=== PATIENT | female | born 1965 | race Caucasian/White ===

== ENCOUNTER 2016-08-10 20:44 | Inpatient (IN) | payer MEDICARE, MEDICAID ==
[2016-08-10 21:38] LABS: Urine Bacteria 1+ (Absent); Urine Bilirubin Negative (Negative); Urine Glucose 3+(>=500 mg/dL) (Negative); Urine Nitrite Positive (Negative)
[2016-08-10 21:44] LABS: Hematocrit 38 % (35-47); Hemoglobin 12.7 g/dl (12.0-16.0); Mean Corpuscular HGB Conc 33 g/dl (31-36); Mean Corpuscular Hemoglobin 29 pg (27-31); Mean Corpuscular Volume 86 fL (80-97); Mean Platelet Volume 7 um3 (7.4-10.4); Red Blood Count 4.43 10^6/ul (4.0-5.4); Red Cell Distribution Width 16 % (10.5-15); White Blood Count 7.4 10^3/ul (3.5-10.8)
[2016-08-10 21:54] LABS: Benzodiazepine Urine Screen None Detected (None Detect)
[2016-08-10 21:59] LABS: ALT 8 U/L (7-52); AST 12 U/L (13-39); Albumin 3.6 g/dL (3.2-5.2); Alkaline Phosphatase 83 U/L (34-104); Anion Gap 5 mmol/L (2-11); BUN/Creatinine Ratio 18.8 (8-20); Blood Urea Nitrogen 13 mg/dL (6-24); CO2 Carbon Dioxide 31 mmol/L (22-32); Chloride 98 mmol/L (101-111); EGFR African American 114.9 (>60); EGFR Non-African American 89.3 (>60); Globulin 3.8 g/dL (2-4); Glucose 134 mg/dL (70-100); Potassium 4.1 mmol/L (3.5-5.0); Sodium 134 mmol/L (133-145); Total Protein 7.4 g/dL (6.4-8.9)
[2016-08-10 22:33] LABS: Acetaminophen < 15 mcg/mL; Alcohol < 10 mg/dL (<10); Salicylate < 2.50 mg/dL (<30)
[2016-08-10 22:42] LABS: TSH (Thyroid Stimulating Horm) 3.67 mcIU/mL (0.34-5.60)
--- NOTE | 2016-08-11 06:21 | ED ---
Jeison Scott Karl, scribed for Jesus Alberto Isaac on 08/10/16 at 2108 . Psychiatric Complaint - HPI Summary HPI Summary: 51 y/o female MONET presents with c/o SI and self harm. Pt stated "I am sad" and has been exhibiting SI by attempting to scratch and cut her genitals. Pt denied any CP, SOB, and abd pain. Hx: DM. - History Of Current Complaint Time Seen by Provider: 08/10/16 20:50 Hx Obtained From: Patient Onset/Duration: Gradual Onset - Allergies/Home Medications Allergies/Adverse Reactions: Allergies Allergy/AdvReac Type Severity Reaction Status Date / Time Carbamazepine [From Tegretol] Allergy Unknown Verified 08/10/16 21:44 Reaction Details Clozapine [From Clozaril] Allergy Unknown Verified 08/10/16 21:44 Reaction Details PMH/Surg Hx/FS Hx/Imm Hx Previously Healthy: No - Family History Known Family History: Positive: Cardiac Disease - father - [place] - Social History Alcohol Use: None Hx Tobacco Use: No Smoking Status (MU): Never Smoked Tobacco Review of Systems Constitutional: Negative Eyes: Negative ENT: Negative Cardiovascular: Negative Respiratory: Negative Gastrointestinal: Negative Genitourinary: Negative Musculoskeletal: Negative Skin: Negative Neurological: Negative Positive: Depressed - with SI All Other Systems Reviewed And Are Negative: Yes Physical Exam Triage Information Reviewed: Yes Vital Signs On Initial Exam: Initial Vitals Temp Pulse Resp BP Pulse Ox 99.3 F 88 16 133/74 97 08/10/16 21:07 08/10/16 21:07 08/10/16 21:07 08/10/16 21:07 08/10/16 21:07 Vital Signs Reviewed: Yes Appearance: Positive: Well-Appearing, No Pain Distress Skin: Positive: Warm, Skin Color Reflects Adequate Perfusion, Dry Head/Face: Positive: Normal Head/Face Inspection Eyes: Positive: EOMI, JARRELL ENT: Positive: Normal ENT inspection Neck: Positive: Supple, Nontender Respiratory/Lung Sounds: Positive: Clear to Auscultation, Breath Sounds Present Cardiovascular: Positive: RRR, Pulses are Symmetrical in both Upper and Lower Extremities Abdomen Description: Positive: Nontender, Soft Bowel Sounds: Positive: Present Musculoskeletal: Positive: Normal, Strength/ROM Intact Neurological: Positive: Normal, Sensory/Motor Intact, Alert, Oriented to Person Place, Time Psychiatric: Positive: Depressed - depressed affect w/ SI Diagnostics - Vital Signs Vital Signs Temp Pulse Resp BP Pulse Ox 08/10/16 21:07 99.3 F 88 16 133/74 97 - Laboratory Lab Results: Lab Results 08/10/16 08/10/16 08/10/16 Range/Units 21:19 21:19 21:35 WBC 7.4 (3.5-10.8) 10^3/ul RBC 4.43 (4.0-5.4) 10^6/ul Hgb 12.7 (12.0-16.0) g/dl Hct 38 (35-47) % MCV 86 (80-97) fL MCH 29 (27-31) pg MCHC 33 (31-36) g/dl RDW 16 H (10.5-15) % Plt Count 219 (150-450) 10^3/ul MPV 7 L (7.4-10.4) um3 Neut % (Auto) 44.4 (38-83) % Lymph % (Auto) 44.2 (25-47) % Stonewall % (Auto) 7.9 (1-9) % Eos % (Auto) 2.7 (0-6) % Baso % (Auto) 0.8 (0-2) % Absolute Neuts (auto) 3.3 (1.5-7.7) 10^3/ul Absolute Lymphs (auto) 3.3 (1.0-4.8) 10^3/ul Absolute Monos (auto) 0.6 (0-0.8) 10^3/ul Absolute Eos (auto) 0.2 (0-0.6) 10^3/ul Absolute Basos (auto) 0.1 (0-0.2) 10^3/ul Absolute Nucleated RBC 0 10^3/ul Nucleated RBC % 0.1 Sodium (133-145) mmol/L Potassium (3.5-5.0) mmol/L Chloride (101-111) mmol/L Carbon Dioxide (22-32) mmol/L Anion Gap (2-11) mmol/L BUN (6-24) mg/dL Creatinine (0.51-0.95) mg/dL Est GFR ( Amer) (>60) Est GFR (Non-Af Amer) (>60) BUN/Creatinine Ratio (8-20) Glucose (70-100) mg/dL Calcium (8.6-10.3) mg/dL Total Bilirubin (0.2-1.0) mg/dL AST (13-39) U/L ALT (7-52) U/L Alkaline Phosphatase (34-104) U/L Total Protein (6.4-8.9) g/dL Albumin (3.2-5.2) g/dL Globulin (2-4) g/dL Albumin/Globulin Ratio (1-3) TSH (0.34-5.60) mcIU/mL Urine Color Yellow Urine Appearance Clear Urine pH 7.0 (5-9) Ur Specific Hye 1.029 (1.010-1.030) Urine Protein Negative (Negative) Urine Ketones Trace H (Negative) Urine Blood Negative (Negative) Urine Nitrate Positive H (Negative) Urine Bilirubin Negative (Negative) Urine Urobilinogen Negative (Negative) Ur Leukocyte Esterase Trace H (Negative) Urine WBC (Auto) Trace(0-5/hpf) (Absent) Urine RBC (Auto) 1+(3-5/hpf) H (Absent) Ur Squamous Epith Cells Present H (Absent) Urine Bacteria 1+ H (Absent) Urine Glucose 3+(>=500 mg/dl) H (Negative) Salicylates (<30) mg/dL Urine Opiates Screen None detected (None Detect) Acetaminophen mcg/mL Ur Barbiturates Screen None detected (None Detect) Ur Phencyclidine Scrn None detected (None Detect) Ur Amphetamines Screen None detected (None Detect) U Benzodiazepines Scrn None detected (None Detect) Urine Cocaine Screen None detected (None Detect) U Cannabinoids Screen None detected (None Detect) Serum Alcohol (<10) mg/dL 08/10/16 Range/Units 21:35 WBC (3.5-10.8) 10^3/ul RBC (4.0-5.4) 10^6/ul Hgb (12.0-16.0) g/dl Hct (35-47) % MCV (80-97) fL MCH (27-31) pg MCHC (31-36) g/dl RDW (10.5-15) % Plt Count (150-450) 10^3/ul MPV (7.4-10.4) um3 Neut % (Auto) (38-83) % Lymph % (Auto) (25-47) % Stonewall % (Auto) (1-9) % Eos % (Auto) (0-6) % Baso % (Auto) (0-2) % Absolute Neuts (auto) (1.5-7.7) 10^3/ul Absolute Lymphs (auto) (1.0-4.8) 10^3/ul Absolute Monos (auto) (0-0.8) 10^3/ul Absolute Eos (auto) (0-0.6) 10^3/ul Absolute Basos (auto) (0-0.2) 10^3/ul Absolute Nucleated RBC 10^3/ul Nucleated RBC % Sodium 134 (133-145) mmol/L Potassium 4.1 (3.5-5.0) mmol/L Chloride 98 L (101-111) mmol/L Carbon Dioxide 31 (22-32) mmol/L Anion Gap 5 (2-11) mmol/L BUN 13 (6-24) mg/dL Creatinine 0.69 (0.51-0.95) mg/dL Est GFR ( Amer) 114.9 (>60) Est GFR (Non-Af Amer) 89.3 (>60) BUN/Creatinine Ratio 18.8 (8-20) Glucose 134 H (70-100) mg/dL Calcium 9.0 (8.6-10.3) mg/dL Total Bilirubin 0.30 (0.2-1.0) mg/dL AST 12 L (13-39) U/L ALT 8 (7-52) U/L Alkaline Phosphatase 83 (34-104) U/L Total Protein 7.4 (6.4-8.9) g/dL Albumin 3.6 (3.2-5.2) g/dL Globulin 3.8 (2-4) g/dL Albumin/Globulin Ratio 0.9 L (1-3) TSH 3.67 (0.34-5.60) mcIU/mL Urine Color Urine Appearance Urine pH (5-9) Ur Specific Hye (1.010-1.030) Urine Protein (Negative) Urine Ketones (Negative) Urine Blood (Negative) Urine Nitrate (Negative) Urine Bilirubin (Negative) Urine Urobilinogen (Negative) Ur Leukocyte Esterase (Negative) Urine WBC (Auto) (Absent) Urine RBC (Auto) (Absent) Ur Squamous Epith Cells (Absent) Urine Bacteria (Absent) Urine Glucose (Negative) Salicylates < 2.50 (<30) mg/dL Urine Opiates Screen (None Detect) Acetaminophen < 15 mcg/mL Ur Barbiturates Screen (None Detect) Ur Phencyclidine Scrn (None Detect) Ur Amphetamines Screen (None Detect) U Benzodiazepines Scrn (None Detect) Urine Cocaine Screen (None Detect) U Cannabinoids Screen (None Detect) Serum Alcohol < 10 (<10) mg/dL Result Diagrams: 08/10/16 21:35 08/10/16 21:35 Lab Statement: Any lab studies that have been ordered have been reviewed, and results considered in the medical decision making process. Course/Dx - Course Course Of Treatment: pt cleared for mental health evaluation. - Differential Dx/Clinical Impression Provider Diagnosis: Depressed affect, Suicidal ideation Discharge - Discharge Plan Condition: Stable Disposition: OTHER Discharge Disposition Comment: for mental health evaluation. The documentation as recorded by the Jeison nicole Karl accurately reflects the service I personally performed and the decisions made by , Jesus Alberto Isaac.
[2016-08-11] MEDS ORDERED: Fluconazole 100 MG TAB* TAB PO ONE (06:46)
--- NOTE | 2016-08-11 06:51 | PN ---
Progress Note - Progress Note Note: Patient is complaining of vaginal itching and white discharge. States that sugars have not been in control and gets yeast infections when this occurs. She states that the diflucan normal clears it up. On exam she has white curdy like discharge presents with labial irritation present consistent with candidiasis. Will treat with diflucan.
[2016-08-11] MEDS ORDERED: Ciprofloxacin TAB* 500 MG PO ONE (14:29)
--- NOTE | 2016-08-11 14:34 | PN ---
Mylene Scott SooYoung, scribed for Michael Aguilar MD on 08/11/16 at 1415 . Progress Note - Progress Note Note: SIGN OUT FROM DR. TOMLIN. Pt is a 51 y/o F with SI and depression. Voluntary papers signed. Pt will be admitted to behavioral health unit. pt's urine was positive for >100,000 of EColi. she will be started on Cipro 500 mg BID x 7 days DX: DEPRESSION UTI The documentation as recorded by the southibMylene garcia SooYoung accurately reflects the service I personally performed and the decisions made by Jeff keller Drew, MD.
[2016-08-11] MEDS: QUEtiapine TAB* 100 MG PO SCH (21:00)
[2016-08-11] MEDS: Divalproex ER TAB(*) 500 MG PO SCH (21:00)
[2016-08-11] MEDS: glipiZIDE TAB* 5 MG PO SCH (21:01)
[2016-08-11] MEDS: metFORMIN* 1,000 MG TAB PO SCH (21:01)
[2016-08-11] MEDS: Prazosin CAP* 1 MG PO SCH (21:01)
[2016-08-11] MEDS: LORazepam TAB(*) 0.5 MG PO SCH (21:02)
[2016-08-11] MEDS: Haloperidol TAB* 5 MG PO SCH (21:02)
[2016-08-11] MEDS: traZODone TAB* 50 MG TAB PO SCH (21:02)
[2016-08-11] MEDS: Benztropine TAB* 1 MG PO SCH (21:03)
[2016-08-12] MEDS: glipiZIDE TAB* 5 MG PO SCH ×2 (08:01→16:33)
[2016-08-12] MEDS: DULoxetine DR CAP* 30 MG CAP.DR PO SCH (08:31)
[2016-08-12] MEDS: metFORMIN* 1,000 MG TAB PO SCH ×2 (08:32→20:42)
[2016-08-12] MEDS: Cholecalciferol TAB* 1000 UNITS PO SCH (08:32)
[2016-08-12] MEDS: Divalproex ER TAB(*) 500 MG PO SCH ×2 (08:32→20:41)
[2016-08-12] MEDS: Benztropine TAB* 1 MG PO SCH ×2 (08:33→20:40)
[2016-08-12] MEDS: DULoxetine DR CAP* 60 MG CAP.DR PO SCH (08:33)
[2016-08-12] MEDS: Potassium Chlor TAB* 10 MEQ TAB.ER PO SCH (08:34)
[2016-08-12] MEDS: Haloperidol TAB* 5 MG PO SCH ×2 (08:34→20:42)
[2016-08-12] MEDS: PTO SitaGLIPtin (NF) 100 MG TAB PO SCH (08:36)
[2016-08-12] MEDS: CANAGLIFLOZIN 100 MG PO SCH (08:55)
[2016-08-12] MEDS: Furosemide TAB* 20 MG PO SCH (09:34)
[2016-08-12] MEDS: LORazepam TAB(*) 0.5 MG PO SCH ×2 (09:35→20:42)
[2016-08-12] MEDS: FISH OIL 1200 MG PO SCH (09:36)
[2016-08-12] MEDS ORDERED: Acetaminophen TAB* 325 MG PO PRN (09:54)
[2016-08-12] MEDS ORDERED: Nicotine Inhaler* 10 MG AMP INH PRN (09:54)
[2016-08-12] MEDS ORDERED: Al Hydrox/Mg Hydrox/Simet LIQ* 30 ML UDC PO PRN (09:54)
--- NOTE | 2016-08-12 11:09 | PN ---
[facility]: Group Therapy Note - Service Type Service Type: 95169 Group Psychotherapy - Cognitive Behavioral Therapy (CBT): Patient presents with high volume of speech that impresses as being coherent within the context of self-report, but is tangential and off topic in group context. Concerns regarding disorganization of thought are apparent.
[2016-08-12] MEDS ORDERED: Magnesium Hydroxide LIQ* 30 ML UDC PO PRN (12:38)
[2016-08-12] MEDS ORDERED: Ibuprofen TAB* 400 MG PO PRN (12:38)
[2016-08-12] MEDS ORDERED: Haloperidol INJ IV/IM* 5 MG/ML AMP ONE (12:41)
[2016-08-12] MEDS ORDERED: LORazepam INJ* 2 MG/ML 1 ML VIAL ONE (12:41)
[2016-08-12] MEDS ORDERED: diPHENhydraMINE IV* 50 MG/ML 1 ml VIAL (BENADRYL) ONE (12:41)
[2016-08-12] MEDS ORDERED: diPHENhydraMINE IV* 50 MG/ML 1 ml VIAL (BENADRYL) IM ONE (12:45)
[2016-08-12] MEDS ORDERED: Haloperidol INJ IV/IM* 5 MG/ML AMP IM ONE (12:45)
[2016-08-12] MEDS ORDERED: LORazepam INJ* 2 MG/ML 1 ML VIAL IM ONE (12:45)
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
[2016-08-12] MEDS: Cephalexin CAP* 500 MG PO SCH ×2 (16:33→20:41)
[2016-08-12] MEDS ORDERED: Atorvastatin* 20 MG TAB PO SCH (18:00)
[2016-08-12] MEDS: QUEtiapine TAB* 100 MG PO SCH (20:42)
[2016-08-12] MEDS: traZODone TAB* 50 MG TAB PO SCH (20:42)
[2016-08-12] MEDS: Prazosin CAP* 1 MG PO SCH (20:42)
[2016-08-12] MEDS ORDERED: Clotrimazole 1% VAGINAL CREAM* 45 GM VAGINAL SCH (21:00)
--- NOTE | 2016-08-12 23:13 | CONS ---
CONSULTATION REPORT: DATE OF CONSULT: 08/12/16 REQUESTING PHYSICIAN: Dr. Iverson. PRIMARY CARE PROVIDER: Dr. Majano. REASON FOR CONSULT: Genital area itching. HISTORY OF PRESENT ILLNESS: Velma Harper is a 51-year-old female with a history of hypertension and diabetes status post pacemaker placement who had been hospitalized at our facility from 08/12/16. She is a mental health unit patient who reportedly had suicidal ideation at admission. The patient herself stated that she "did not fit well" with her other residents at the assisted living place where she is currently residing at. She is a very vague and poor historian. She has also history of mental disability and schizoaffective disorder. The patient stated that she occasionally has urinary urgency. She stated that she has pruritus in the vaginal vulvar area for the past several days and she had taken "a pill for it." She complains of whitish vaginal discharge. She also complains of chronic leg edema for which she takes Lasix. A consultation was requested by Dr. Iverson for pruritus and urinalysis that is positive for E. Coli. PAST MEDICAL HISTORY: Once again, I do not have any medical records available at this point. The patient is a very poor historian. 1. The patient has a pacemaker placement reported 10 years ago for "arrhythmia. " 2. History of pulmonary embolism in 2014 and 2015, currently not on anticoagulation. 3. Diabetes. 4. Hypertension. 5. History of uneven blood pressures. The blood pressure measured on the left arm is usually lower with rising possibility of chronic left subclavian artery stenosis. 6. History of possible CHF and chronic leg edema. 7. History of schizoaffective disorder. 8. History of tubal ligation. 9. Cholecystectomy. 10. Intellectual disability. CURRENT MEDICATIONS: Include: 1. Cogentin 0.5 mg b.i.d. 2. Invokana 100 mg daily. 3. Vitamin D3 of 2000 units daily. 4. Duloxetine 90 mg daily. 5. Depakote ER 500 mg in the a.m. and 1000 at bedtime. 6. Furosemide 20 mg daily. 7. Glipizide 10 mg b.i.d. 8. Haldol 75 mg injection each month. 9. Haldol 5 mg b.i.d. p.o. 10. Lorazepam 0.5 mg b.i.d. 11. Metformin 1000 mg b.i.d. 12. Fish oil 1200 mg daily. 13. Potassium chloride 10 mEq daily. 14. Prazosin 1 mg daily. 15. Quetiapine 400 mg at bedtime. 16. Simvastatin 40 mg daily. 17. Januvia 100 mg daily. 18. Trazodone 50 mg at bedtime. ALLERGIES: Drug allergies include CLOZAPINE and CARBAMAZEPINE. FAMILY HISTORY: As above. SOCIAL HISTORY: The patient stated that she lives in an assisted living facility. She moved to [facility] from [place] in April 2016. Her sister Georgette would be her surrogate as per the patient. Her father still lives in [place] and as per the patient is in his 80s and has a history of heart disease. Mother had a history of lung cancer, is . The patient denies any tobacco, alcohol, or drug use. REVIEW OF SYSTEMS: Please note that the patient is a poor historian. She complains of chronic leg edema. She denies any chest pain or shortness of breath. Her appetite has been good. She has occasional urinary urgency currently not present. She complains of vulvar pruritus that had been ongoing for several days. All the remaining 14 systems were reviewed and were negative. PHYSICAL EXAM: Vital Signs: Blood pressure 122/68, heart rate of 77 and regular, respiratory rate 16, oxygen saturation 97% on room air, and temperature 97.3. General Appearance: This is a very pleasant 51-year-old female with a BMI of 40. The patient is in no acute distress. The patient is alert, awake, and oriented x2. HEENT: Head is atraumatic and normocephalic. Eyes; pupils equal and reactive to light and accommodation. Oropharynx clear. Mucosa moist. Neck: No JVD, no bruits bilaterally. Cardiovascular: Regular rate and rhythm. No murmur. Respiratory: Clear to auscultation bilaterally. Abdomen: Protuberant, soft, and nontender. Bowel sounds present in all quadrants. Extremities: +1 pitting pedal edema. Pulses +2 bilaterally. No clubbing or cyanosis. On evaluation of the skin, no ecchymotic areas or rashes noted. On evaluation of the vulvar area, there are no abnormal lesions noted. There is no apparent vaginal discharge noted. There is no skin intertrigo noted. Neuro evaluation; speech clear. Cranial nerves II through XII grossly intact. Motor strength is 5/5 bilaterally. The patient is a very poor historian. DIAGNOSTIC STUDIES/LAB DATA: Was obtained on 08/10/16: Initial white blood cell count of 7.4, hemoglobin 12.7, hematocrit of 38, and platelets of 219. Sodium 134, potassium 4.1, chloride 98, carbon dioxide 31, BUN 13, and creatinine 0.69. Liver functions were unremarkable. TSH of 3.67. Urinalysis was grossly positive for UTI with urine cultures positive for over 100,000 colonies of E. Coli. Hepatitis C antibody and HIV antibodies were obtained. Hepatitis C antibody is nonreactive. HIV antibodies are pending at the time of dictation. ASSESSMENT/PLAN: 1. In regards to vaginal discharge and pruritus; most likely related to vaginal yeast infection. The patient is going to be placed on vaginal clotrimazole cream on a daily basis for the next 7 days. 2. In regards to the E. Coli urinary tract infection, the patient is going to be placed on Keflex for a total of 5 days' treatment. 3. In regards to her history of congestive heart failure, at this point she does have leg edema, but otherwise appears to be evolemic. We will continue her Lasix as previously prescribed. 4. In regards to her diabetes treatment, her sugars appear to be well controlled on her glipizide and metformin as previously taken as well as Januvia , which should be continued. 5. In regards to the patient's history of schizoaffective disorder and probable suicidal ideation, the patient is continued on her Depakote and Cymbalta. She is also currently being treated and monitored behaviorally by Dr. Iverson. 6. For DVT prophylaxis, the patient is ambulatory. Once again at this point, the patient is going to be treated with a full course of Keflex for urinary tract infection as well as full course of clotrimazole cream for 7 days for vaginal candidiasis. Thank you very much for allowing me to see the patient in consultation. We will follow on an as needed basis. TIME SPENT: Approximately 55 minutes was spent on the patient's consultation. CC: Dr. Majano; Dr. Iverson * [id number]/[facility] #: [id number] [facility]
[2016-08-13 07:38] VITALS: BP 121/74
[2016-08-13] MEDS: CANAGLIFLOZIN 100 MG PO SCH (08:12)
[2016-08-13] MEDS: FISH OIL 1200 MG PO SCH (08:13)
[2016-08-13] MEDS ORDERED: Vitamin THERAPEUTIC TAB PO SCH (09:00)
[2016-08-13] MEDS: Furosemide TAB* 20 MG PO SCH (09:33)
[2016-08-13] MEDS: DULoxetine DR CAP* 60 MG CAP.DR PO SCH (09:33)
[2016-08-13] MEDS: LORazepam TAB(*) 0.5 MG PO SCH (09:33)
[2016-08-13] MEDS: Potassium Chlor TAB* 10 MEQ TAB.ER PO SCH (09:33)
[2016-08-13] MEDS: metFORMIN* 1,000 MG TAB PO SCH (09:34)
[2016-08-13] MEDS: Cholecalciferol TAB* 1000 UNITS PO SCH (09:34)
[2016-08-13] MEDS: DULoxetine DR CAP* 30 MG CAP.DR PO SCH (09:34)
[2016-08-13] MEDS: Divalproex ER TAB(*) 500 MG PO SCH (09:34)
[2016-08-13] MEDS: Cephalexin CAP* 500 MG PO SCH ×2 (09:35→14:11)
[2016-08-13] MEDS: Benztropine TAB* 1 MG PO SCH (09:35)
[2016-08-13] MEDS: Haloperidol TAB* 5 MG PO SCH (09:35)
[2016-08-13] MEDS: glipiZIDE TAB* 5 MG PO SCH (09:39)
[2016-08-13] MEDS: PTO SitaGLIPtin (NF) 100 MG TAB PO SCH (09:47)
--- NOTE | 2016-08-13 11:58 | PN ---
M[facility]: Group Therapy Note - Service Type Service Type: 96797 Group Psychotherapy - Cognitive Behavioral Group Therapy ( CBT):Patient was attentive and participatory in CBT programming this morning, and remained in good behavioral control. Patient expressed positive insights regarding relevant treatment interventions and goals.
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
== END 2016-08-13 15:35 | disposition home or self-care (01) | DRG 885 ==
LOC: ED 20:44 → BSU 08-11 15:32
PROVIDERS: ADMIT Psychiatry & Neurology Psychiatry; ATTEND Psychiatry & Neurology Psychiatry
DX: F25.9 Schizoaffective disorder, unspecified (principal); R45.851 Suicidal ideations; I11.0 Hypertensive heart disease with heart failure; I50.9 Heart failure, unspecified; N39.0 Urinary tract infection, site not specified; E11.9 Type 2 diabetes mellitus without complications; Z68.41 Body mass index [BMI] 40.0-44.9, adult; B96.20 Unspecified Escherichia coli [E. coli] as the cause of diseases classified elsewhere; L40.9 Psoriasis, unspecified; F79 Unspecified intellectual disabilities; B37.3 Candidiasis of vulva and vagina; E66.9 Obesity, unspecified; Z79.899 Other long term (current) drug therapy; Z79.84 Long term (current) use of oral hypoglycemic drugs; Z62.810 Personal history of physical and sexual abuse in childhood; Z88.8 Allergy status to other drugs, medicaments and biological substances; Z81.1 Family history of alcohol abuse and dependence; Z95.0 Presence of cardiac pacemaker; Z86.711 Personal history of pulmonary embolism
CPT/HCPCS: 36415; 80053; 80307; 80320; 80329; 81003; 81015; 84443; 85025; 86703; 86803; 87077; 87086; 87186; 90853; 99222; 99238; A9270-GY; G0480; J1200; J1630; J2060

== ENCOUNTER 2016-10-30 01:32 | Emergency (ER) | payer MEDICARE, MEDICAID ==
[2016-10-30] MEDS: NS 0.9% 1000 ML* 2,000 ML IV ONE ×2 (03:08→06:16)
[2016-10-30 03:26] LABS: Hematocrit 35 % (35-47); Hemoglobin 11.4 g/dl (12.0-16.0); Mean Corpuscular HGB Conc 33 g/dl (31-36); Mean Corpuscular Hemoglobin 29 pg (27-31); Mean Corpuscular Volume 88 fL (80-97); Mean Platelet Volume 7 um3 (7.4-10.4); Red Cell Distribution Width 15 % (10.5-15); White Blood Count 6.3 10^3/ul (3.5-10.8)
[2016-10-30 03:30] LABS: Urine Bilirubin Negative (Negative); Urine Glucose 3+(>=500 mg/dL) (Negative); Urine Nitrite Negative (Negative)
[2016-10-30 03:38] LABS: Albumin 3.1 g/dL (3.2-5.2); BUN/Creatinine Ratio 21.4 (8-20); C Reactive Protein 12.31 mg/L (< 5.00); Calcium 8.2 mg/dL (8.6-10.3); EGFR Non-African American 87.9 (>60); Globulin 3.4 g/dL (2-4); Magnesium 1.8 mg/dL (1.9-2.7); Potassium 3.8 mmol/L (3.5-5.0); Total Bilirubin 0.2 mg/dL (0.2-1.0); Total Protein 6.5 g/dL (6.4-8.9)
[2016-10-30 03:55] LABS: TSH (Thyroid Stimulating Horm) 6.24 mcIU/mL (0.34-5.60)
[2016-10-30] MEDS ORDERED: glipiZIDE TAB* 5 MG PO ONE (07:41)
[2016-10-30] MEDS ORDERED: metFORMIN* 500 MG TAB PO ONE (07:41)
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
--- NOTE | 2016-10-30 08:08 | RAD ---
Indication: Near syncope. Slight shortness of breath. Diabetic. Cardiac disease. Comparison: No relevant prior exams available [place] [facility] [place]. Technique: Upright AP 0255 hours Report: Obese body habitus limits image quality. There is asymmetric opacification at the LEFT mid to lower lung zone which may be artifact due to magnitude of overlying soft tissue however this is not definitive and alveolar consolidation is not excluded. Negative for pleural effusion or pneumothorax. RIGHT atrial and RIGHT ventricular level pacemaker leads. Negative for cardiomegaly. Unremarkable central pulmonary vasculature. Mild eventration of the LEFT hemidiaphragm versus LEFT epicardial fat pad. IMPRESSION: Limited exam due to obesity. LEFT mid to lower lung zone alveolar consolidation concerning for potential pneumonia is not excluded. Correlate with clinical assessment and consider PA and lateral views or CT for further evaluation if deemed appropriate.
[2016-10-30 08:17] VITALS: BP 102/68
[2016-10-30 09:05] LABS: BUN/Creatinine Ratio 24.1 (8-20); EGFR African American 312.4 (>60); EGFR Non-African American 242.9 (>60)
[2016-10-30 09:09] LABS: Calcium 4.6 mg/dL (8.6-10.3); Potassium 2.7 mmol/L (3.5-5.0)
[2016-10-30 09:59] LABS: Calcium 7.8 mg/dL (8.6-10.3); EGFR African American 166.6 (>60); EGFR Non-African American 129.6 (>60); Globulin 3.2 g/dL (2-4); Total Bilirubin 0.2 mg/dL (0.2-1.0); Total Protein 6.2 g/dL (6.4-8.9)
[2016-10-30] MEDS ORDERED: Calcium Carbonate CHEW TAB* 500 MG (TUMS) PO ONE (11:18)
[2016-10-30] MEDS ORDERED: Magnesium Oxide TAB* 400 MG PO ONE (11:29)
--- NOTE | 2016-10-30 11:30 | ED ---
Mikael Scott Matthew, scribed for Pranay Jamison MD on 10/30/16 at 0805 . Progress - Progress Note Progress Note: The patient is a sign out from Dr. Powell. A 51 y/o female presents to the ED c/o of elevated BG and dizziness. She described the dizziness as the room spinning The patient states that she feels better and the dizziness has completely resolved. P/E VITAL SIGNS: Reviewed. GENERAL: Patient is an obese who is lying comfortable in the stretcher. Patient is not in any acute respiratory distress. HEAD AND FACE: No signs of trauma. No ecchymosis, hematomas or skull depressions. No sinus tenderness. EYES: PERRLA, EOMI x 2, No injected conjunctiva, no nystagmus. No photophobia. EARS: Hearing grossly intact. Ear canals and tympanic membranes are within normal limits. MOUTH: Oropharynx within normal limits. NECK: Supple, trachea is midline, no adenopathy, no JVD, no carotid bruit, no c- spine tenderness, neck with full ROM. No meningeal signs, no Kernig's or brudzinskis signs. CHEST: Symmetric, no tenderness at palpation LUNGS: Clear to auscultation bilaterally. No wheezing or crackles. CVS: Regular rate and rhythm, S1 and S2 present, no murmurs or gallops appreciated. ABDOMEN: Soft, non-tender. No signs of distention. No rebound no guarding, and no masses palpated. Bowel sounds are normal. EXTREMITIES: FROM in all major joints, no edema, no cyanosis or clubbing. NEURO: Alert and oriented x 3. No acute neurological deficits. Speech is normal and follows commands. SKIN: Dry and warm Re-Evaluation - Re-Evaluation First Eval Re-Evaluation Time: 11:27 Comment: Notified of lab results. Course/Dx - Course Course Of Treatment: Patient was signed out by Dr. Powell. He requested me to follow-up the repeated Glucose and lactic acid. Right now the glucose is 125 and the lactic acid decreased 2.1. Also, the calcium is 7.5, so I gave one dose of calcium carbonate. The patient also was given magnesium by Dr. Powell. At this point, I believe the patient needs to follow-up as an outpatient since the patient may be developing hypothyroidism and hypoparathyroidism, which should be follow-up with the PCP. The patient is asymptomatic at this time, eating, drinking, and ambulating in the ED. Therefore, she will be discharged home to follow-up with her PCP. The patient does not have Carpopedal spasms. She does not have tetany or QT prolongations in the EKG. The patient is A&Ox3 and hemodynamically stable. - Diagnoses Provider Diagnoses: Hypocalcemia, Hypomagnesemia, Hyperglycemia due to type 2 diabetes mellitus - Provider Notifications Discussed Care Of Patient With: Dr. Vera (hospitalist) @ 0606. The documentation as recorded by the Mikael nicole Matthew accurately reflects the service I personally performed and the decisions made by , Pranay Jamison MD.
== END 2016-10-30 11:55 ==
LOC: ED 01:32
DX: E11.65 Type 2 diabetes mellitus with hyperglycemia (principal); E83.51 Hypocalcemia; E83.42 Hypomagnesemia
CPT/HCPCS: 36415; 71010; 80048; 80053; 80164; 81003; 82947; 83605; 83690; 83735; 83880; 84443; 84484; 85025; 85610; 85730; 86140; 93005; 99285; A9270-GY

== ENCOUNTER 2017-01-04 22:19 | Inpatient (IN) | payer MEDICARE, MEDICAID ==
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
[2017-01-04 23:36] LABS: Hematocrit 38 % (35-47); Hemoglobin 12.7 g/dl (12.0-16.0); Mean Corpuscular HGB Conc 34 g/dl (31-36); Mean Corpuscular Hemoglobin 30 pg (27-31); Mean Corpuscular Volume 90 fL (80-97); Mean Platelet Volume 7 um3 (7.4-10.4); Red Blood Count 4.21 10^6/ul (4.0-5.4); Red Cell Distribution Width 15 % (10.5-15)
[2017-01-04 23:55] LABS: ALT 12 U/L (7-52); Acetaminophen < 15 mcg/mL; Albumin 3.5 g/dL (3.2-5.2); Alcohol < 10 mg/dL (<10); Alkaline Phosphatase 87 U/L (34-104); BUN/Creatinine Ratio 16.7 (8-20); Blood Urea Nitrogen 11 mg/dL (6-24); CO2 Carbon Dioxide 31 mmol/L (22-32); Calcium 9.1 mg/dL (8.6-10.3); Chloride 96 mmol/L (101-111); EGFR African American 120.9 (>60); Globulin 3.5 g/dL (2-4); Glucose 253 mg/dL (70-100); Salicylate < 2.50 mg/dL (<30); Sodium 135 mmol/L (133-145)
[2017-01-05 00:06] LABS: TSH (Thyroid Stimulating Horm) 4.87 mcIU/mL (0.34-5.60)
[2017-01-05 00:22] LABS: AST 13 U/L (13-39); Anion Gap 8 mmol/L (2-11); Potassium 4.2 mmol/L (3.5-5.0)
[2017-01-05 02:14] LABS: Urine Bacteria Absent (Absent); Urine Bilirubin Negative (Negative); Urine Glucose 3+(>=500 mg/dL) (Negative); Urine Nitrite Negative (Negative)
[2017-01-05 02:22] LABS: Benzodiazepine Urine Screen None Detected (None Detect)
[2017-01-05] MEDS ORDERED: Al Hydrox/Mg Hydrox/Simet LIQ* 30 ML UDC PO PRN (06:26)
[2017-01-05] MEDS ORDERED: Acetaminophen TAB* 325 MG PO PRN (06:26)
[2017-01-05] MEDS: Benztropine TAB* 1 MG PO SCH ×2 (09:27→21:14)
[2017-01-05] MEDS: Cholecalciferol TAB* 1000 UNITS PO SCH (09:27)
[2017-01-05] MEDS: glipiZIDE TAB* 5 MG PO SCH ×2 (09:27→21:13)
[2017-01-05] MEDS: metFORMIN* 1,000 MG TAB PO SCH ×2 (09:27→21:13)
[2017-01-05] MEDS: Vitamin THERAPEUTIC TAB PO SCH (09:27)
[2017-01-05] MEDS: DULoxetine DR CAP* 30 MG CAP.DR PO SCH (09:28)
[2017-01-05] MEDS: Divalproex DR TAB(*) 500 MG PO SCH (09:28)
[2017-01-05] MEDS: Atorvastatin* 20 MG TAB PO SCH (09:28)
[2017-01-05] MEDS: LORazepam TAB(*) 0.5 MG PO SCH ×2 (09:29→21:13)
[2017-01-05] MEDS: Furosemide TAB* 20 MG PO SCH (09:30)
[2017-01-05] MEDS: SITAGLIPTIN 100 MG PO SCH (10:05)
[2017-01-05] MEDS: PTO:Canagliflozin (NF) 100 MG TAB PO SCH (10:05)
[2017-01-05] MEDS: OMEGA PO SCH (10:09)
[2017-01-05] MEDS: FATTY ACIDS PO SCH (10:09)
[2017-01-05] MEDS: Insulin GLARGINE(*) 1 UNITS UNIT SUBCUT SCH (13:52)
--- NOTE | 2017-01-05 18:33 | ADMNOTE ---
Identification - Identify Employment Status: Disabled Hx Psychiatric Hospitalization: Yes - More than 100 Arrived to Hospital Via: Ambulatory History - Objective HPI: Patient is a poor historian due to intellectual disability. She initially came to the ED for physical health reasons and reported to the nursing staffs that she was suicidal. Says she is stressed out in her appartment and feels fearful. Although thinks about suicidal all the time she denies any active plan or intent. Already feeling safe here and denies any thoughts of self harm today. There is no evidence of mood, thoughts or perceptual disturbances today. Lab Results: Laboratory Tests 01/05/17 01/05/17 01/05/17 07:42 12:01 16:30 POC Glucose (mg/dL) 192 H 178 H 244 H Exam Appearance: Obese Hygiene: Mal-odorous Grooming: Disheveled Psychomotor Activities: Normal Exhibits Abnormal Movement: No Attitude and Relatedness: Cooperative Eye Contact: Fair - Speech Quality: Unpressured Latencies: Long Quantity: Terse Patient's Decription of Mood: "Okay" Observed Affect: Non-labile Patient's Thought Process: Coherent, Circumstantial, Impoverished Thought Content: No Passive Wish, No Suicidal Planning, No Homicidal Ideation, No Paranoid Ideation Experiencing Hallucinations: No, Sensorium is Clear Type of Hallucinations: Visual: No, Auditory: No, Command: No Level of Consciousness: Alert Orientation: Yes Intact, Yes Orientated to Time, Yes Orientated to Place, Yes Orientated to Person Impulse Control: Tenuous Insight and Judgement: Poor Impression - Impression Clinical Impression: 51 y/o, mentally and intellectually disabled female with repeated hospitalizations was admitted due to verbalizing suicidal thoughts in the ED for an unrelated reason. Denying any mood,thoughts or perceptual problems now. Merits Inpatient Hospitalization: Yes - [place] [facility] Mental Illness: Schizoaffective D/O, Bipolar type. - [place] III Medical Illness: DM, HTN,CHF and Obesity. Plan - Treatment Plan Continued Medication Management: Continue Outpt Medication Medications: Current Medications Acetaminophen (Tylenol Tab*) 650 mg PO Q4H PRN PRN Reason: PAIN or TEMP > 101 F Al Hydrox/Mg Hydrox/Simethicone (Maalox Plus*) 30 ml PO Q4H PRN PRN Reason: INDIGESTION Atorvastatin Calcium (Lipitor*) 20 mg PO DAILY [facility] Last Admin: 01/05/17 09:28 Dose: 20 mg Benztropine Mesylate (Cogentin Tab*) 0.5 mg PO BID [facility] Last Admin: 01/05/17 09:27 Dose: 0.5 mg Canagliflozin (Invokana (Nf)) 100 mg PO DAILY [facility] Last Admin: 01/05/17 10:05 Dose: 100 mg Cholecalciferol (Vitamin D Tab*) 2,000 units PO DAILY [facility] Last Admin: 01/05/17 09:27 Dose: 2,000 units Divalproex Sodium (Depakote Dr Tab(*)) 500 mg PO QAM [facility] Last Admin: 01/05/17 09:28 Dose: 500 mg Divalproex Sodium (Depakote Dr Tab(*)) 1,000 mg PO BEDTIME [facility] Duloxetine HCl (Cymbalta Cap*) 90 mg PO DAILY [facility] Last Admin: 01/05/17 09:28 Dose: 90 mg Furosemide (Lasix Tab*) 20 mg PO QAM [facility] Last Admin: 01/05/17 09:30 Dose: 20 mg Glipizide (Glucotrol Tab*) 10 mg PO BID [facility] Last Admin: 01/05/17 09:27 Dose: 10 mg Insulin Glargine (Lantus(*)) 10 units SUBCUT DAILY [facility] Last Admin: 01/05/17 13:52 Dose: 10 units Lorazepam (Ativan Tab(*)) 0.5 mg PO BID [facility] Last Admin: 01/05/17 09:29 Dose: 0.5 mg Metformin HCl (Glucophage*) 1,000 mg PO BID [facility] Last Admin: 01/05/17 09:27 Dose: 1,000 mg Multivitamins (Theragran Tab*) 1 tab PO DAILY [facility] Last Admin: 01/05/17 09:27 Dose: 1 tab [place] 3 Fatty Acids (1200 Mg) 1 dose PO DAILY [facility] Last Admin: 01/05/17 10:09 Dose: Not Given Prazosin HCl (Minipress Cap*) 1 mg PO BEDTIME [facility] Quetiapine Fumarate (Seroquel Tab*) 400 mg PO BEDTIME [facility] Sitagliptin Phosphate (Januvia (Nf)) 100 mg PO DAILY [facility] Last Admin: 01/05/17 10:05 Dose: 100 mg Trazodone HCl (Desyrel Tab*) 50 mg PO BEDTIME [facility] - Discharge Plan Discharge Plan: Outpatient Follow Up Outpatient Program: [facility]
[2017-01-05] MEDS ORDERED: traZODone TAB* 50 MG TAB PO SCH (21:00)
[2017-01-05] MEDS ORDERED: QUEtiapine TAB* 100 MG PO SCH (21:00)
[2017-01-05] MEDS ORDERED: Divalproex DR TAB(*) 500 MG PO SCH (21:00)
[2017-01-05] MEDS ORDERED: Prazosin CAP* 1 MG PO SCH (21:00)
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
[2017-01-06 07:43] VITALS: BP 106/69
[2017-01-06] MEDS: DULoxetine DR CAP* 30 MG CAP.DR PO SCH (09:22)
[2017-01-06] MEDS: Vitamin THERAPEUTIC TAB PO SCH (09:22)
[2017-01-06] MEDS: Atorvastatin* 20 MG TAB PO SCH (09:22)
[2017-01-06] MEDS: Cholecalciferol TAB* 1000 UNITS PO SCH (09:23)
[2017-01-06] MEDS: Divalproex DR TAB(*) 500 MG PO SCH (09:23)
[2017-01-06] MEDS: glipiZIDE TAB* 5 MG PO SCH (09:23)
[2017-01-06] MEDS: Benztropine TAB* 1 MG PO SCH (09:26)
[2017-01-06] MEDS: metFORMIN* 1,000 MG TAB PO SCH (09:26)
[2017-01-06] MEDS: Insulin GLARGINE(*) 1 UNITS UNIT SUBCUT SCH (09:28)
[2017-01-06] MEDS: LORazepam TAB(*) 0.5 MG PO SCH (09:28)
[2017-01-06] MEDS: Furosemide TAB* 20 MG PO SCH (09:29)
[2017-01-06] MEDS: SITAGLIPTIN 100 MG PO SCH (09:30)
[2017-01-06] MEDS: PTO:Canagliflozin (NF) 100 MG TAB PO SCH (09:31)
[2017-01-06] MEDS: FATTY ACIDS PO SCH (09:41)
[2017-01-06] MEDS: OMEGA PO SCH (09:41)
--- NOTE | 2017-01-06 13:54 | DCNOTE ---
Subjective - Subjective Service Types: 23753 Hosp [place] Day Mgmt simple under 30 min Discharge Date: 01/06/17 Subjective: The patient denies SI or HI. Feels that she would be better served receiving treatment on an outpatient setting. ACT team contacted and they express that she would be better served by being discharged today and following up with them tomorrow. Objective - Appearance Appearance: Obese Dysmorphic Features: No Hygiene: Normal Grooming: Well Kept - Behavior Psychomotor Activities: Normal Exhibits Abnormal Movement: No - Attitude and Relatedness Attitude and Relatedness: Cooperative Eye Contact: Good - Speech Quality: Unpressured Latencies: Normal Quantity: Appropriate - Mood Patient's Decription of Mood: "Good" - Affect Observed Affect: Good Affect Consistent with: Euthymia - Thought Process Patient's Thought Process: Coherent Thought Content: No Passive Wish, No Suicidal Planning, No Homicidal Ideation, No Paranoid Ideation - Sensorium Experiencing Hallucinations: No, Sensorium is Clear Type of Hallucinations: Visual: No, Auditory: No, Command: No - Level of Consciousness Level of Consciousness: Alert Orientation: Yes Intact, Yes Orientated to Time, Yes Orientated to Place, Yes Orientated to Person - Impulse Control Impulse Control: Tenuous - Insight and Judgement Insight and Judgement: Fair - Group Participation Particating in Group Activities: Yes - Medication Management Medication Management Adherence: Yes - Additional Observations Comments: Patient labs: Dated 10/09/16 Cholesterol: 148 Triglycerides: 254 LDL: 69 HDL: 28.4 Fasting glucose: 01/05/17 253 DC Assessment - Assessment Clinical Impression: 51 y.o. single white female with developmental delay and mental illness admitted for . Merits Inpatient Hospitalization: No Clear for Discharge: Adequate Clinical Respons, Acceptable Safety Profile, Low Utility of Inpt Care - [place] [facility] Mental Illness: Schizoaffective D/O, Bipolar type. - [place] [facility] Medical Illness: DM, HTN,CHF and Obesity. Discharge Planning - Discharge Planning Discharge Plan: Outpatient Follow Up Outpatient Program: [facility] Team Recommendations for Continuing Care: Medication Management Medications: Current Medications Acetaminophen (Tylenol Tab*) 650 mg PO Q4H PRN PRN Reason: PAIN or TEMP > 101 F Al Hydrox/Mg Hydrox/Simethicone (Maalox Plus*) 30 ml PO Q4H PRN PRN Reason: INDIGESTION Atorvastatin Calcium (Lipitor*) 20 mg PO DAILY [facility] Last Admin: 01/06/17 09:22 Dose: 20 mg Benztropine Mesylate (Cogentin Tab*) 0.5 mg PO BID [facility] Last Admin: 01/06/17 09:26 Dose: 0.5 mg Canagliflozin (Invokana (Nf)) 100 mg PO DAILY [facility] Last Admin: 01/06/17 09:31 Dose: 100 mg Cholecalciferol (Vitamin D Tab*) 2,000 units PO DAILY [facility] Last Admin: 01/06/17 09:23 Dose: 2,000 units Divalproex Sodium (Depakote Dr Tab(*)) 500 mg PO QAM [facility] Last Admin: 01/06/17 09:23 Dose: 500 mg Divalproex Sodium (Depakote Dr Tab(*)) 1,000 mg PO BEDTIME [facility] Last Admin: 01/05/17 21:12 Dose: 1,000 mg Duloxetine HCl (Cymbalta Cap*) 90 mg PO DAILY [facility] Last Admin: 01/06/17 09:22 Dose: 90 mg Furosemide (Lasix Tab*) 20 mg PO QAM [facility] Last Admin: 01/06/17 09:29 Dose: 20 mg Glipizide (Glucotrol Tab*) 10 mg PO BID [facility] Last Admin: 01/06/17 09:23 Dose: 10 mg Insulin Glargine (Lantus(*)) 10 units SUBCUT DAILY [facility] Last Admin: 01/06/17 09:28 Dose: 10 units Lorazepam (Ativan Tab(*)) 0.5 mg PO BID [facility] Last Admin: 01/06/17 09:28 Dose: 0.5 mg Metformin HCl (Glucophage*) 1,000 mg PO BID [facility] Last Admin: 01/06/17 09:26 Dose: 1,000 mg Multivitamins (Theragran Tab*) 1 tab PO DAILY [facility] Last Admin: 01/06/17 09:22 Dose: 1 tab [place] 3 Fatty Acids (1200 Mg) 1 dose PO DAILY [facility] Last Admin: 01/06/17 09:41 Dose: Not Given Prazosin HCl (Minipress Cap*) 1 mg PO BEDTIME [facility] Last Admin: 01/05/17 21:13 Dose: 1 mg Quetiapine Fumarate (Seroquel Tab*) 400 mg PO BEDTIME [facility] Last Admin: 01/05/17 21:13 Dose: 400 mg Sitagliptin Phosphate (Januvia (Nf)) 100 mg PO DAILY [facility] Last Admin: 01/06/17 09:30 Dose: 100 mg Trazodone HCl (Desyrel Tab*) 50 mg PO BEDTIME [facility] Last Admin: 01/05/17 21:13 Dose: 50 mg Discharge Planning: Prescriptions provided for discharge [] Yes [] No Follow up care details as per social work arrangements. Patient response to discharge plan: [] eager for discharge [] agreeable with discharge plan [] ambivalent about discharge [] disagrees with discharge today
--- NOTE | 2017-01-06 15:32 | DS ---
DATE OF ADMISSION: 01/05/2017. DATE OF DISCHARGE: 01/06/2017. DISCHARGE DIAGNOSIS: AXIS I: Schizoaffective disorder, bipolar type. AXIS II: Mild intellectual disability. AXIS III: Type 2 diabetes mellitus, hypertension, obesity, congestive heart failure, hypercholester olemia. AXIS IV: Moderate, primary support stressors. AXIS V: At the time of admission was 40 and at the time of discharge is 60. CONDITION AT THE TIME OF DISCHARGE: Stable. The patient is calm and cooperative. She is going to [facility] and we see no evidence of harmful behavior to herself or to others. 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 We have spoken at length with her intensive outpatient service provider which is the [facility] ACT team and the ACT team feels strongl y that this is a patient who is likely to get worse if she remains on the inpatient setting as this is her history. They similarly feel that she is better served receiving treatment in a less coerciv e and less restrictive setting. MENTAL STATUS EXAMINATION: The patient is an average height, obese, female wearing a blou se and reed slacks. Her hygiene and grooming appear to be fair. She is alert and oriented. Speech is soft and slow. She is easy to establish a rapport with. She is euthymic with a full affect. Th ought process and linear and goal-directed. Thought content is significant for her desire to leave the hospital. She is denying suicidal or homicidal ideation. She denies auditory or visual halluci nations. She has no evidence responding to internal stimuli. Insight and judgment appear to be fair given her willingness to follow-up with the [facility]. Cognitively, she i s awake and alert with what would appear to be low average intellect by virtue of her history of int ellectual delay. DISCHARGE RECOMMENDATIONS: A. Medications: The patient takes Trazodone 50 mg p.o. daily, Hydroxyzine 25 mg every 4 hours as needed for anxiety, Klonopin 0.5 mg twice daily as needed for anxiety, Januvia 100 mg p.o. daily, Seroquel 400 mg p.o. at bedtime, Prazosin 1 mg p.o. at bedt faith, Potassium Chloride 10 mEq p.o. daily, [place]-3 fatty acids 1200 mg p.o. daily, Mirabegron 25 mg p.o. daily, Metformin 1000 mg p.o. b.i.d., insulin 10 units subcutaneously daily, Haldol 5 mg p.o. b .i.d., Haldol Decanoate 150 mg once monthly, Glucotrol 10 mg p.o. b.i.d., Lasix 20 mg p.o. q.a.m., D epakote ER 1000 mg at bedtime and 500 mg in the morning, Cymbalta 90 mg daily, vitamin D3 two tablet s p.o. daily, Invokana 100 mg p.o. daily, Cogentin 0.5 mg p.o. b.i.d., Lipitor 20 mg p.o. q.p.m. B. Diet: The patient has a diabetic diet. C. Activities: As tolerated. The patient is a nonsmoker. There are no laboratory or diagnostic s tudies pending at the time of discharge. D. Follow-up care: The patient will follow-up tomorrow, January 07, with the [facility] team. HOSPITAL COURSE - PART A: Reason for admission: Kaylee is a 51-year-old, mentally-disabled, white female with a known history of schizoaffective disorder, as well as intellectual disability and sev eral psychiatric hospitalizations in [place], as well as one additional hospitalization here at [facility] in July of this year, who arrives seeking treatment for abdominal pain, but admi tting to some recent suicidality. Apparently, she had been recently having some anxiety while resid ing at the [facility], which is a local residential facility for consumers with mental health pro blems. She had been experiencing suicidal thoughts on the day prior to admission, but these had salome f-resolved. She indicates that she has been stressed out recently because of her physical inability to function or care for herself. She got upset with her sister because she walks faster when they are out in public together and she does have multiple physical health issues which makes it difficul t for her to often keep up with others. She is overweight and has multiple physical health issues, including some joint problems. She does have a history of being impulsive and at times aggressive a nd tends to be worse in the inpatient setting. On the day of admission, she was calm, pleasant and cooperative, but there was a concern about her recent suicidality, so she was admitted for the sake of further evaluating this problem. HOSPITAL COURSE - PART B: Psychiatric treatment rendered: The patient was admitted to the [facility] where she was placed on q.30 minute checks for her own safety. She was kept on all of her current medications with no changes and we wanted to speak to [facility] which was unavailable until January 06 which was the date of discharge. At that time, the ACT team voiced the opinion that the patient did poorly on inpatient settings and that the y were better equipped to meet her needs in the intensive outpatient environment. The patient concu rred with this and was continuing to deny suicidal or homicidal ideations throughout her hospital st ay with us. She was calm, cooperative, went to groups and was safe on all checks. At this time, we feel that she is safe for discharge. The patient is at some increased risk for completed suicide gi rupinder the fact that she has impulsivity and chronic mental illness; however, in the acute phase, her s tressors are under control and she is receiving fairly intensive services on the outpatient basis. For these reasons, we feel that it would be the most beneficial thing to discharge her so that she c an follow-up with the ACT team as soon as tomorrow. [id number]/[facility] #: [id number]
== END 2017-01-06 16:14 | disposition home or self-care (01) | DRG 885 ==
LOC: ED 22:19 → BSU 01-05 03:41
PROVIDERS: ADMIT Psychiatry & Neurology Psychiatry; ATTEND Psychiatry & Neurology Psychiatry
DX: F25.0 Schizoaffective disorder, bipolar type (principal); I11.0 Hypertensive heart disease with heart failure; I50.9 Heart failure, unspecified; R45.851 Suicidal ideations; Z68.41 Body mass index [BMI] 40.0-44.9, adult; F70 Mild intellectual disabilities; E11.9 Type 2 diabetes mellitus without complications; E66.9 Obesity, unspecified; E78.00 Pure hypercholesterolemia, unspecified; F41.9 Anxiety disorder, unspecified; L40.9 Psoriasis, unspecified; Z62.810 Personal history of physical and sexual abuse in childhood; F32.9 Major depressive disorder, single episode, unspecified; E03.9 Hypothyroidism, unspecified; F50.81 Binge eating disorder; Z79.4 Long term (current) use of insulin; Z86.711 Personal history of pulmonary embolism; Z87.440 Personal history of urinary (tract) infections; Z88.8 Allergy status to other drugs, medicaments and biological substances; Z95.0 Presence of cardiac pacemaker; Z91.5 Personal history of self-harm; Z98.51 Tubal ligation status; Z82.49 Family history of ischemic heart disease and other diseases of the circulatory system; Z56.0 Unemployment, unspecified
CPT/HCPCS: 36415; 80053; 80164; 80307; 80320; 80329; 81003; 81015; 84443; 85025; 87086; 99222; 99238; A9270-GY; G0480

== ENCOUNTER 2017-06-08 19:28 | Emergency (ER) | payer MEDICARE, MEDICAID ==
[2017-06-08] MEDS ORDERED: clonazePAM TAB(*) 0.5 MG PO ONE (20:12)
[2017-06-08] MEDS ORDERED: Haloperidol INJ IV/IM* 5 MG/ML AMP ONE (21:00)
[2017-06-08] MEDS ORDERED: LORazepam INJ* 2 MG/ML 1 ML VIAL ONE (21:00)
[2017-06-08] MEDS ORDERED: diPHENhydraMINE IV* 50 MG/ML 1 ml VIAL (BENADRYL) ONE (21:00)
[2017-06-08 22:05] LABS: ABS Basophils 0.1 10^3/ul (0-0.2); ABS Eosinophils 0.2 10^3/ul (0-0.6); ABS Lymphocytes 2.6 10^3/ul (1.0-4.8); ABS Monocytes 0.5 10^3/ul (0-0.8); ABS Neutrophils 3.3 10^3/ul (1.5-7.7); ABS Nucleated RBC 0 10^3/ul; Eosinophil % 3.2 % (0-6); Hematocrit 37 % (35-47); Hemoglobin 12.8 g/dl (12.0-16.0); Lymphocyte % 39.3 % (25-47); Mean Corpuscular HGB Conc 34 g/dl (31-36); Mean Corpuscular Hemoglobin 30 pg (27-31); Mean Corpuscular Volume 87 fL (80-97); Mean Platelet Volume 7 um3 (7.4-10.4); Nucleated Red Blood Cells % 0; Platelet Count 282 10^3/ul (150-450); Red Blood Count 4.29 10^6/ul (4.0-5.4); Red Cell Distribution Width 14 % (10.5-15); White Blood Count 6.6 10^3/ul (3.5-10.8)
[2017-06-08 22:13] LABS: Urine Appearance Cloudy; Urine Blood Negative (Negative); Urine Color Yellow; Urine Ketones 1+ (Negative); Urine Protein Negative (Negative); Urine Specific Gravity 1.029 (1.010-1.030); Urine Urobilinogen Negative (Negative)
[2017-06-08 22:23] LABS: EGFR Non-African American 98.8 (>60)
[2017-06-09 01:07] VITALS: BP 124/80
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
== END 2017-06-09 01:31 | disposition home or self-care (01) ==
LOC: ED 19:28
DX: F41.9 Anxiety disorder, unspecified (principal); E11.9 Type 2 diabetes mellitus without complications; E03.9 Hypothyroidism, unspecified; Z79.01 Long term (current) use of anticoagulants; D64.9 Anemia, unspecified; Z86.711 Personal history of pulmonary embolism; F90.9 Attention-deficit hyperactivity disorder, unspecified type; F20.9 Schizophrenia, unspecified; F31.9 Bipolar disorder, unspecified
CPT/HCPCS: 36415; 80053; 80307; 80320; 80329; 81003; 81015; 84443; 85025; 87086; 99285; A9270-GY; G0480; J1200; J1630; J2060

== ENCOUNTER 2017-06-22 17:21 | Emergency (ER) | payer MEDICARE, MEDICAID ==
[2017-06-22] MEDS ORDERED: NS 0.9% 1000 ML* 1,000 ML IV ONE (18:18)
[2017-06-22 18:48] LABS: ABS Basophils 0 10^3/ul (0-0.2); ABS Eosinophils 0.1 10^3/ul (0-0.6); ABS Lymphocytes 2.4 10^3/ul (1.0-4.8); ABS Monocytes 0.5 10^3/ul (0-0.8); ABS Neutrophils 2.9 10^3/ul (1.5-7.7); ABS Nucleated RBC 0 10^3/ul; Eosinophil % 1.4 % (0-6); Hematocrit 36 % (35-47); Hemoglobin 12.1 g/dl (12.0-16.0); Lymphocyte % 40.7 % (25-47); Mean Corpuscular HGB Conc 34 g/dl (31-36); Mean Corpuscular Hemoglobin 30 pg (27-31); Mean Corpuscular Volume 87 fL (80-97); Mean Platelet Volume 7 um3 (7.4-10.4); Nucleated Red Blood Cells % 0.1; Platelet Count 235 10^3/ul (150-450); Red Cell Distribution Width 14 % (10.5-15); White Blood Count 5.9 10^3/ul (3.5-10.8)
[2017-06-22 18:59] LABS: EGFR Non-African American 87.5 (>60)
[2017-06-22 19:51] LABS: Urine Appearance Clear; Urine Blood 1+ (Negative); Urine Color Straw; Urine Ketones Negative (Negative); Urine Protein Negative (Negative); Urine Specific Gravity 1.023 (1.010-1.030); Urine Urobilinogen Negative (Negative)
[2017-06-22] MEDS ORDERED: Insulin REGULAR(*) 1 UNITS UNIT SUBCUT ONE (20:53)
[2017-06-22 22:22] VITALS: BP 111/65
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
== END 2017-06-22 22:31 | disposition home or self-care (01) ==
LOC: ED 17:21
DX: R73.9 Hyperglycemia, unspecified (principal); R10.9 Unspecified abdominal pain; R53.83 Other fatigue; Z79.01 Long term (current) use of anticoagulants
CPT/HCPCS: 36415; 80053; 81003; 81015; 82803; 83605; 85025; 86140; 99284

== ENCOUNTER 2017-07-30 19:25 | Emergency (ER) | payer MEDICARE, MEDICAID ==
--- OUTSIDE RECORDS SUMMARY | 2017-07-30 19:37 | XMS REPORT ---
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 Cannabinoids 50 Opiates 300 Pcp 25 Specimen was received without chain of custody. Results should be used for medical purposes only. 9 Because ethnic data is not always readily available, this report includes an eGFR for both -Americans and non- Americans. The National Kidney Disease Education Program (NKDEP) does not endorse the use of the MDRD equation for patients that are not between the ages of 18 and 70, are , have extremes of body size, muscle mass, or nutritional status, or are non- or non-. According to the National Kidney Foundation, irrespective of diagnosis, the stage of the disease is based on the level of kidney function: Stage Description GFR(mL/min/1.73 m(2)) 1 Kidney damage with normal or decreased GFR 90 2 Kidney damage with mild decrease in GFR 60-89 3 Moderate decrease in GFR 30-59 4 Severe decrease in GFR 15-29 5 Kidney failure <15 (or dialysis) 10 Therapeutic concentration: <50 ug/mL Toxic concentration: >120 ug/mL 11 The urine specimen was tested at the listed cutoffs: Drug class test level (ng/mL) Amphetamines 500 Barbiturates 200 Benzodiazepine metabolites 200 Cocaine metabolites 150 Cannabinoids 50 Opiates 300 Pcp 25 Specimen was received without chain of custody. Results should be used for medical purposes only. 12 [id number] 13 SEE RESULT BELOW Name: VELMA HARPER : [address]: Ashlyn TORRES Acct: [id number] Unit: [id number] AGE: 52 Location: [facility] Re04/15/17 SEX: F Status: REG REF SPEC: [id number] MARLENE: 04/15/[address] [facility] DR: Ashlyn TORRES REQ: [id number] RECD: 04/15/17 STATUS: COMP _ SOURCE: ALEXI SPDES: ORDERED: Genital Culture COMMENTS: [id number] Procedure Result Reported Site Genital Culture Final 04/17/17- 1111 ML Organism 1 NORMAL CELENA Quantity 2+ * ML - MAIN LAB ([facility]) . END OF REPORT * ML=Testing performed at Main Lab DEPARTMENT OF PATHOLOGY, [address] [place] [address] Cuate Bennett M.D. Director [facility] # [id number] 14 SEE RESULT BELOW Name: WOODVELMA : [address]: Jesus Alberto Isaac MD Acct: [id number] Unit: [id number] AGE: 52 Location: ED Re04/12/17 SEX: F Status: DEP ER SPEC: [id number] MARLENE: 04/13/[address]: Haritha TORRES REQ: [id number] RECD: 04/13/17 STATUS: SUZANNE VARGAS DR: Jesus Alberto Majano MD _ SOURCE: URINE SPDC: ORDERED: Urine Culture Procedure Result Reported Site Urine Culture Final 04/14/17- 1116 ML Organism 1 STREP GROUP B [place] Count 50-75,000 (Many) CFU/ML Organism 2 NORMAL CELENA [place] Count 1-10,000 (Few) CFU/ML Susceptibility testing of penicillins and other B-lactams approved by FDA for treatment of Streptococcus pyogenes (Group A Strep) and Streptococcus agalactiae (Group B Strep) is not necessary for clinical purposes and need not be done routinely, since as with vancomycin, resistant strains have not been recognized. (CLSI J393-K26;p.66) Positive isolates will be saved for one week. Please call the Microbiology Laboratory if further susceptibility testing is needed. * ML - MAIN LAB ([facility]) . END OF REPORT * ML=Testing performed at Main Lab DEPARTMENT OF PATHOLOGY, [address] [place] [address] Cuate Bennett M.D. Director [facility] # [id number] 15 Labs are complete, will be scanned in. 01/31/17. SL 16 REFERENCE VALUE 0.00 - 1.75 ADDITIONAL INFORMATION At a decision limit of 1.75 IU/L, this assay has 97% sensitivity and 99% specificity for detection of Graves' disease. In healthy individuals and in patients with thyroid disease without diagnosis of Graves' disease, the upper limit of anti-TSHR values are 1.22 IU/L and 1.58 IU/L, respectively (97.5th percentiles). Test Performed by: [place] [address] 17 Because ethnic data is not always readily available, this report includes an eGFR for both -Americans and non- Americans. The National Kidney Disease Education Program (NKDEP) does not endorse the use of the MDRD equation for patients that are not between the ages of 18 and 70, are , have extremes of body size, muscle mass, or nutritional status, or are non- or non-. According to the National Kidney Foundation, irrespective of diagnosis, the stage of the disease is based on the level of kidney function: Stage Description GFR(mL/min/1.73 m(2)) 1 Kidney damage with normal or decreased GFR 90 2 Kidney damage with mild decrease in GFR 60-89 3 Moderate decrease in GFR 30-59 4 Severe decrease in GFR 15-29 5 Kidney failure <15 (or dialysis) 18 Acute inflammation: >10.00 19 99th percentile=0.04 ng/mL Troponin results at [facility] and [facility] are not interchangeable. 20 Because ethnic data is not always readily available, this report includes an eGFR for both -Americans and non- Americans. The National Kidney Disease Education Program (NKDEP) does not endorse the use of the MDRD equation for patients that are not between the ages of 18 and 70, are , have extremes of body size, muscle mass, or nutritional status, or are non- or non-. According to the National Kidney Foundation, irrespective of diagnosis, the stage of the disease is based on the level of kidney function: Stage Description GFR(mL/min/1.73 m(2)) 1 Kidney damage with normal or decreased GFR 90 2 Kidney damage with mild decrease in GFR 60-89 3 Moderate decrease in GFR 30-59 4 Severe decrease in GFR 15-29 5 Kidney failure <15 (or dialysis) 21 Critical Result LACT:5.7 Called to [id number] at: 03:38:26 by:[id number] Read back by:[id number] [facility] Severe Sepsis and Septic Shock Management Bundle Measure requires all lactic acids initially measuring >2.0 mmol/L be repeated. [facility] Severe Sepsis and Septic Shock Management Bundle Measure requires all lactic acids initially measuring >2.0 mmol/L be repeated. 22 >100 to <200 pg/mL: likely compensated congestive heart failure (CHF) 200 to 400 pg/mL: likely moderate CHF >400 pg/mL: likely moderate to severe CHF 23 Critical Result LACT:2.8 Called to [id number] at: 09:10:28 by:[id number] Read back by:[id number] [facility] Severe Sepsis and Septic Shock Management Bundle Measure requires all lactic acids initially measuring >2.0 mmol/L be repeated. 24 Because ethnic data is not always readily available, this report includes an eGFR for both -Americans and non- Americans. The National Kidney Disease Education Program (NKDEP) does not endorse the use of the MDRD equation for patients that are not between the ages of 18 and 70, are , have extremes of body size, muscle mass, or nutritional status, or are non- or non-. According to the National Kidney Foundation, irrespective of diagnosis, the stage of the disease is based on the level of kidney function: Stage Description GFR(mL/min/1.73 m(2)) 1 Kidney damage with normal or decreased GFR 90 2 Kidney damage with mild decrease in GFR 60-89 3 Moderate decrease in GFR 30-59 4 Severe decrease in GFR 15-29 5 Kidney failure <15 (or dialysis) 25 Critical Result K:2.7 Called to [id number] at: 09:09:19 by:[id number] Read back by:[id number] 26 Critical Result CO2:14 Called to [id number] at: 09:09:19 by:[id number] Read back by:[id number] 27 Critical Result CA:4.6 Called to [id number] at: 09:09:19 by:[id number] Read back by:[id number] 28 Critical Result LACT:2.1 Called to ROCIO Pfeiffer at: 10:23:42 by:[id number] Read back by:ROCIO SUAREZ Severe Sepsis and Septic Shock Management Bundle Measure requires all lactic acids initially measuring >2.0 mmol/L be repeated. 29 SEE RESULT BELOW Name: VELMA HARPER : [address]: Davonte Majano MD Acct: [id number] Unit: [id number] AGE: 51 Location: [facility] Re08/21/16 SEX: F Status: REG REF SPEC: [id number] MARLENE: 08/21/16 [facility] DR: Davonte Majano MD REQ: [id number] RECD: 08/22/16 STATUS: SOUT _ ORDERED: IMAGE ANALYSIS, HPV/Thin Prep FINAL DIAGNOSIS Negative for Intraepithelial lesion or Malignancy A. Ectocervical/Endocervical Specimen Adequacy: Satisfactory of evaluation Transformation zone component identified Patient Information: HPV: High risk HPV RNA testing regardless of pap results. Actual Specimen Date: 08/21/16 ?: N Post Menopausal?: N Hysterectomy?: N Date Time Test Result Flag (u) Normal Range 08/21/16917 HPV RNA Negative Negative The high-risk HPV types detected by the assay include: 16, 18, 31, 33, 35, 39, 45, 51, 52, 56, 58, 59, 66, and 68. Signed (signature on file) VOLODYMYR Magdaleno (ASCP) 08/23 1551 This Pap test was evaluated with the assistance of the TapFunderPrep Test Imaging System. Due to cytologic findings at the patent engineer microscope, comprehensive manual rescreening by a Supervisor Refining may be required. The Pap Smear is a screening test designed to aid in the detection of premalignant and malignant conditions of the uterine cervix. It is not a diagnostic procedure and should not be used as the sole means of detecting cervical cancer. Both false- positive and false- negative reports do occur. Depending on your risk status, a Pap smear should be obtained and evaluated every 1-3 years. END OF REPORT * ML=Testing performed at Main Lab DEPARTMENT OF PATHOLOGY, [address] [place] [address] Cuate Bennett M.D. Director [facility] # [id number] 30 The high-risk HPV types detected by the assay include: 16, 18, 31, 33, 35, 39, 45, 51, 52, 56, 58, 59, 66, and 68. Procedures Date CPT Code Description Status Comment 06/30/2017 04315 Brief Emotional/Behav Completed Assessment W/ Scoring Doc Per Standard Inst 09/10/2016 Diabetic Foot Exam Completed no sores or ulcers; mild interdigital tinea pedis multiple web spaces R foot; normal DP pulses but absent TP pulses; good cap refill; normal monofilament and vibration sensation 08/14/2016 Mammogram Completed 2017: benign 06/16/2014 Colonoscopy Completed advised "I was clear, everything was fine" Encounters Type Date Location Provider CPT E/M Dx Office Visit 06/30/2017 9:20a Main Office Ashlyn Smyth P.Elias. 31048 E11.40 E11.65 Z79.84 Z91.11 R45.4 Office Visit 06/13/2017 9:40a Main Office Koffi Aguilar 55438 E11.40 B37.3 R45.4 E11.65 Z79.4 Office Visit 04/15/2017 1:40p Main Office Selvin Aguilar. 75791 B37.3 B35.4 N76.0 Office Visit 03/24/2017 10:15a Main Office Davonte Majano M.D. 63132 E11.40 E03.9 Z23 N32.81 F25.0 Z71.89 E66.9 F50.81 Z41.8 Office Visit 01/08/2017 10:00a Main Office Nurse's Schedule 23935 E11.40 Office Visit 12/23/2016 9:30a Main Office Davonte Majano M.D. 07220 E11.40 Z95.0 E83.51 E03.9 B37.3 L40.9 N32.81 H05.213 Z71.89 Office Visit 09/10/2016 4:45p Main Office Davonte Majano M.D. 42804 E11.40 Z91.11 Office Visit 08/21/2016 2:30p Main Office Davonte Majano M.D. 47023 E11.9 F25.0 Z12.31 Z12.4 L40.9 B37.3 Office Visit 06/07/2016 11:15a Main Office Davonte Majano M.D. 65391 E11.9 B37.3 G25.1 F25.0 F60.3 Office Visit 05/22/2016 1:15p Main Office Davonte Majano M.D. 61690 E11.9 R21 R60.0 B37.3 Z23 Z41.8 Plan of Care Future Appointment(s):09/23/2017 11:00 am - Koffi Aguilar at Main [id number] - Koffi AguilarE11.40 Type 2 diabetes mellitus with diabetic neuropathy, unspNew Medication:Glucose MonitorTest StripsComments:Unclear whether the monitor or her eating habits that are recording fluctuations: suspect some of both.Follow up:[phone] Type 2 diabetes mellitus with hsxoqerzdzplgD01.84 half-way (current) use of oral hypoglycemic uiuzxE98.11 Patient's noncompliance with dietary regimenComments:discussed desserts directly impact blood sugarsdiscussed protein sources for every mealR45.4 Irritability and angerComments:Observed today, was able to redirect, but occurred quickly
--- OUTSIDE RECORDS SUMMARY | 2017-07-30 19:37 | XMS REPORT ---
:1965 External Reference #:[id number] Author Organization [facility] Address [address] [address] Phone [phone] Care Team Providers Name Role Phone Davonte Majano MD Primary Care Physician Unavailable Payers Type Date Identification Numbers Payment Provider Subscriber Medicare Primary Policy Number: [id number] Medicare Kaylee Harper PayID: [id number] [address] [place] [address] [employer] Policy Number: [id number] Medicaid Kaylee Harper Group Name: 1 [address] PayID: [id number] [place] [address] Problems Date Description Provider Status Onset: 07/08/2017 Sinus node dysfunction Leah Beatty M.D. Active Onset: 01/21/2017 Cardiac pacemaker in situ Leah Beatty M.D. Active Family History Date Family Member(s) Problem(s) Comments General Diabetes maternal grandfather Father Coronary Artery Disease (CAD) Father Diabetes Father Hypertension Mother Lung Cancer Mother Liver Cancer Social History Type Date Description Comments Marital Status Single Lives With nursing home- [employer] Occupation Unemployed ETOH Use 01/01/2017 Denies alcohol use Recreational Drug Use Denies Drug Use Smoking Patient has never smoked Daily Caffeine Consumes on average 4 cups of to 6 cups daily regular coffee per day Exercise Type/Frequency Does not exercise Allergies, Adverse Reactions, Alerts Date Description Reaction Status Severity Comments 01/21/2017 Carbamazepine active 01/21/2017 Clozapine active 01/21/2017 NKDA inactive Medications Medication Date Status Form Strength Qnty SIG Indications Ordering Provider Depakote 07/18/ Active Tablets DR 500mg 60tabs 1 by mouth Leah 2016 in the [place], morning, 2 M.D. at bedtime Levemir / Active Solution 100Unit/ML 20 units Unknown Flextouch 0000 Pen-Inject once daily as directed Cormax Scalp / Active Solution 0.05% use as Unknown Application 0000 directed Myrbetriq / Active Tablets ER 25mg 1 by mouth Unknown 0000 24HR every day Clonazepam / Active Tablets 0.5mg 1 by mouth Unknown 0000 bid Dovonex / Active Cream 0.005% apply a Unknown 0000 thin layer to affected areas twice a day as directed Trazodone HCL / Active Tablets 50mg 1 tablet at Unknown 0000 bedtime Benztropine / Active Tablets 0.5mg 1 tablet Unknown Mesylate 0000 twice daily for tremors Atorvastatin / Active Tablets 20mg take 1 Unknown Calcium 0000 tablet at bedtime Fish Oil / Active Capsules 1200mg 1 by mouth Unknown 0000 once daily Vitamin D3 / Active Capsules 2000Unit 1 by mouth Unknown 0000 every day Prazosin HCL / Active Capsules 1mg 1 by mouth Unknown 0000 nightly Seroquel / Active 400 mg at Unknown 0000 night Klor-Con M10 / Active Tablets ER 10Meq 1 by mouth Unknown 0000 twice daily Lasix / Active Tablets 20mg 1 by mouth Unknown 0000 every day Glipizide / Active Tablets 10mg 1 by mouth Unknown 0000 twice a day Metformin HCL / Active Tablets 1000mg 1 by mouth Unknown 0000 twice a day Invokana / Active Tablets 100mg 1 by mouth Unknown 0000 every day before breakfast Cymbalta / Active Caps DR 60mg 1 by mouth Unknown 0000 Part every day Haloperidol 00/00/ Active injection 1 Unknown 0000 ml Im once a month Cymbalta / Active Caps DR 30mg 1 by mouth Unknown 0000 Part every day , along with 60 mg capsule Vistaril / Active Capsules 25mg 1 tablet po Unknown 0000 Q 6 hrs prn Hydroxyzine / Active Tablets 25mg 1 tablet po Unknown HCL 0000 every four hours as needed for anxiety Fluconazole / Hx Tablets 100mg 2 tabs day Unknown 0000 - 1, then 1 2017 2-6 Januvia / Hx Tablets 100mg 1 by mouth Unknown 0000 - every day 2017 Gas Relief / Hx Chewtabs 80mg every other Unknown 0000 - day prn 2017 Vital Signs Date Vital Result Comment 07/08/2017 Height 63.25 inches 5'3.25" Weight 237.75 lb with shoes Heart Rate 72 /min BP Systolic Sitting 106 mmHg Rue lrg cuff BP Diastolic Sitting 70 mmHg Rue lrg cuff BP Systolic Standing 108 mmHg Rue lrg cuff BP Diastolic Standing 74 mmHg Rue lrg cuff Respiratory Rate 16 /min BMI (Body Mass Index) 41.8 kg/m2 01/21/2017 Height 63.25 inches 5'3.25" Weight 227.00 lb with shoes Heart Rate 96 /min BP Systolic 100 mmHg Rue lg cuff BP Diastolic 70 mmHg Rue lg cuff BP Systolic Sitting 102 mmHg Rue lg cuff BP Diastolic Sitting 70 mmHg Rue lg cuff BP Systolic Standing 92 mmHg Lue lg cuff BP Diastolic Standing 60 mmHg Lue lg cuff BMI (Body Mass Index) 39.9 kg/m2 Results Test Date Test Result H/L Range Note Laboratory test finding 07/08/2017 Ast (Sgot) <pending> Creatine Kinase(CK) <pending> Procedures Date CPT Code Description Status 06/27/2017 33820 Pace Maker Eval W/Iterative Adjment Dual Lead Completed 02/04/2017 83306 Pace Maker Eval W/Iterative Adjment Dual Lead Completed 01/21/2017 44934 EKG Tracing & Interpretation Completed Encounters Type Date Location Provider CPT E/M Dx Office Visit 01/21/2017 3:30p [facility] Leah Beatty M.D. 30105 Z95.0 History Faculty Member Z82.49 E11.8 R60.0 Office Visit 08/12/2016 3:26p [facility] Becky Sanderson, 11296 N30.00 ,[facility] B37.3 E11.9 Plan of Care 07/08/2017 - Leah Beatty M.D.I49.5 Sick sinus psbcovddX13.0 Presence of cardiac pacemakerFollow up:Release records Cindy Kellogg, Dr Zuleta, pacer implant, consults, last office note, any admission or dc summary if able. 6 months PO and ov to hjikyhB91.622 Pain in left upper armE11.8 Type 2 diabetes mellitus with unspecified oxsjxrfwryxkfU21.0 Localized edemaComments: Option of seeing a vein specialist, locally Dr. Galarza and Dr. Regan.E78.2 Mixed hyperlipidemiaComments:Triglycerides mildly elevated, watch the refined carbohydrates (white sugar, white flour, white potatoes, white rice) in addition to avoiding unhealthy fats. LDL looks good.Z68.41 Body mass index (BMI ) 40.0-44.9, adult
[2017-07-30 20:08] LABS: ABS Basophils 0.1 10^3/ul (0-0.2); ABS Eosinophils 0.1 10^3/ul (0-0.6); ABS Lymphocytes 2.6 10^3/ul (1.0-4.8); ABS Monocytes 0.4 10^3/ul (0-0.8); ABS Neutrophils 3.1 10^3/ul (1.5-7.7); ABS Nucleated RBC 0 10^3/ul; Eosinophil % 2.3 % (0-6); Hematocrit 39 % (35-47); Hemoglobin 13.2 g/dl (12.0-16.0); Lymphocyte % 41.4 % (25-47); Mean Corpuscular HGB Conc 34 g/dl (31-36); Mean Corpuscular Hemoglobin 29 pg (27-31); Mean Corpuscular Volume 87 fL (80-97); Mean Platelet Volume 7 um3 (7.4-10.4); Nucleated Red Blood Cells % 0.2; Platelet Count 270 10^3/ul (150-450); Red Blood Count 4.49 10^6/ul (4.0-5.4); Red Cell Distribution Width 14 % (10.5-15); White Blood Count 6.3 10^3/ul (3.5-10.8)
[2017-07-30 20:14] LABS: Urine Appearance Clear; Urine Blood Negative (Negative); Urine Color Yellow; Urine Ketones 1+ (Negative); Urine Protein Negative (Negative); Urine Specific Gravity 1.017 (1.010-1.030); Urine Urobilinogen Negative (Negative)
[2017-07-30 20:25] LABS: EGFR Non-African American 87.5 (>60)
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
[2017-07-31 01:05] VITALS: BP 117/77
== END 2017-07-31 01:05 | disposition home or self-care (01) ==
LOC: ED 19:25
DX: F99 Mental disorder, not otherwise specified (principal); Z79.01 Long term (current) use of anticoagulants; E11.9 Type 2 diabetes mellitus without complications; E03.9 Hypothyroidism, unspecified; Z86.711 Personal history of pulmonary embolism
CPT/HCPCS: 36415; 80053; 80164; 80307; 80320; 80329; 81003; 81015; 84443; 85025; 87086; 99284; G0480

== ENCOUNTER 2017-07-31 16:27 | Inpatient (IN) | payer MEDICARE, MEDICAID ==
[2017-07-31 17:30] LABS: Urine Appearance Clear; Urine Blood Negative (Negative); Urine Color Straw; Urine Ketones Trace (Negative); Urine Protein Negative (Negative); Urine Specific Gravity 1.028 (1.010-1.030); Urine Urobilinogen Negative (Negative)
--- NOTE | 2017-07-31 17:47 | RAD ---
INDICATION: Constipation COMPARISON: None TECHNIQUE: Erect and supine views of the abdomen are submitted. FINDINGS: Bones: There are no acute bony findings. Soft tissues: The soft tissues appear normal. The psoas margins are sharp. Bowel gas pattern: There is stool throughout the colon. The stomach is air filled with a air-fluid level Calcifications: There are no abnormal calcifications. Other: None IMPRESSION: RETAINED STOOL. GASEOUS DISTENTION OF THE STOMACH WITH AIR-FLUID LEVEL. SUGGEST PLAIN RADIOGRAPHIC FOLLOW-UP INDICATED
[2017-07-31 18:01] LABS: ABS Basophils 0 10^3/ul (0-0.2); ABS Eosinophils 0.1 10^3/ul (0-0.6); ABS Lymphocytes 2.1 10^3/ul (1.0-4.8); ABS Monocytes 0.5 10^3/ul (0-0.8); ABS Neutrophils 3.5 10^3/ul (1.5-7.7); ABS Nucleated RBC 0 10^3/ul; Eosinophil % 1.8 % (0-6); Hematocrit 40 % (35-47); Hemoglobin 13.7 g/dl (12.0-16.0); Lymphocyte % 33.5 % (25-47); Mean Corpuscular HGB Conc 34 g/dl (31-36); Mean Corpuscular Hemoglobin 30 pg (27-31); Mean Corpuscular Volume 87 fL (80-97); Mean Platelet Volume 7 um3 (7.4-10.4); Nucleated Red Blood Cells % 0; Platelet Count 263 10^3/ul (150-450); Red Blood Count 4.61 10^6/ul (4.0-5.4); Red Cell Distribution Width 14 % (10.5-15); White Blood Count 6.2 10^3/ul (3.5-10.8)
[2017-07-31] MEDS ORDERED: Polyethylene Glycol 3350* 17 GM PACKET PO PRN (18:10)
[2017-07-31] MEDS ORDERED: Fluconazole 150 MG (NF) 150 MG TAB PO ONE (20:26)
--- NOTE | 2017-07-31 20:33 | ED ---
IVic Stephanie, scribed for Fidel Prabhakar MD on 07/31/17 at 2031 . Progress - Progress Note Progress Note: The pt was a sign out from Dr. Jamison at shift change. The pt received a MHE and will be admitted into the hospital. - Consult/PCP Time Called: 19:00 Course/Dx - Course Course Of Treatment: The pt received a MHE and will be admitted into the hospital. The pt is complaining of vaginal itching. ED physician prescribed 1 dose of diflucan. - Diagnoses Provider Diagnoses: Aggressive behavior, Schizoaffective disorder The documentation as recorded by the Vic nicole Stephanie accurately reflects the service I personally performed and the decisions made by , Fidel Prabhakar MD.
[2017-07-31] MEDS ORDERED: Fluconazole 100 MG TAB* TAB PO ONE (21:00)
[2017-08-01] MEDS ORDERED: Ibuprofen TAB* 200 MG PO PRN (00:46)
[2017-08-01] MEDS ORDERED: Docusate CAP* 100 MG PO PRN (00:47)
[2017-08-01] MEDS ORDERED: clonazePAM TAB(*) 0.5 MG PO PRN (00:52)
[2017-08-01] MEDS ORDERED: INSULIN DETEMIR 100 UNIT/ML SUBCUT SCH (09:00)
[2017-08-01] MEDS: metFORMIN* 1,000 MG TAB PO SCH ×2 (09:12→17:44)
[2017-08-01] MEDS: glipiZIDE TAB* 5 MG PO SCH ×2 (09:12→17:45)
[2017-08-01] MEDS: Benztropine TAB* 1 MG PO SCH ×2 (09:13→22:45)
[2017-08-01] MEDS: Potassium Chlor TAB* 10 MEQ TAB.ER PO SCH (09:13)
[2017-08-01] MEDS: Cholecalciferol TAB* 1000 UNITS PO SCH (09:14)
[2017-08-01] MEDS: Divalproex ER TAB(*) 500 MG PO SCH (09:15)
[2017-08-01] MEDS: DULoxetine DR CAP* 60 MG CAP.DR PO SCH (09:16)
[2017-08-01] MEDS: DULoxetine DR CAP* 30 MG CAP.DR PO SCH (09:16)
[2017-08-01] MEDS: Furosemide TAB* 20 MG PO SCH (09:16)
[2017-08-01] MEDS: Fluconazole 100 MG TAB* TAB PO SCH (09:17)
[2017-08-01] MEDS: Clobetasol 0.05% OINT* 30 GM TUBE TOPICAL SCH ×2 (09:18→22:46)
[2017-08-01] MEDS: CANAGLIFLOZIN 100 MG PO SCH (09:22)
[2017-08-01] MEDS: MIRABEGRON 25 MG PO SCH (09:22)
[2017-08-01] MEDS: CALCIPOTRIENE 0.005% TOPICAL SCH ×2 (09:23→22:46)
[2017-08-01] MEDS: FISH OIL PO SCH (09:23)
[2017-08-01] MEDS: Polyethylene Glycol 3350* 17 GM PACKET PO SCH (14:20)
[2017-08-01] MEDS: Docusate CAP* 100 MG PO SCH (14:20)
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
[2017-08-01] MEDS: Prazosin CAP* 1 MG PO SCH (22:46)
[2017-08-01] MEDS: traZODone TAB* 50 MG TAB PO SCH (22:46)
[2017-08-01] MEDS: QUEtiapine TAB* 100 MG PO SCH (22:46)
[2017-08-02] MEDS: Cholecalciferol TAB* 1000 UNITS PO SCH (09:44)
[2017-08-02] MEDS: metFORMIN* 1,000 MG TAB PO SCH ×2 (09:44→16:58)
[2017-08-02] MEDS: INSULIN DETEMIR 100 UNIT/ML SUBCUT SCH (09:44)
[2017-08-02] MEDS: Benztropine TAB* 1 MG PO SCH ×2 (09:44→22:28)
[2017-08-02] MEDS: Docusate CAP* 100 MG PO SCH (09:44)
[2017-08-02] MEDS: glipiZIDE TAB* 5 MG PO SCH ×2 (09:45→16:58)
[2017-08-02] MEDS: Potassium Chlor TAB* 10 MEQ TAB.ER PO SCH (09:46)
[2017-08-02] MEDS: Fluconazole 100 MG TAB* TAB PO SCH (09:46)
[2017-08-02] MEDS: DULoxetine DR CAP* 60 MG CAP.DR PO SCH (09:46)
[2017-08-02] MEDS: Furosemide TAB* 20 MG PO SCH (09:46)
[2017-08-02] MEDS: DULoxetine DR CAP* 30 MG CAP.DR PO SCH (09:47)
[2017-08-02] MEDS: Polyethylene Glycol 3350* 17 GM PACKET PO SCH (09:47)
[2017-08-02] MEDS: Divalproex ER TAB(*) 500 MG PO SCH (09:47)
[2017-08-02] MEDS: CALCIPOTRIENE 0.005% TOPICAL SCH ×2 (09:55→22:32)
[2017-08-02] MEDS: MIRABEGRON 25 MG PO SCH (09:55)
[2017-08-02] MEDS: FISH OIL PO SCH (09:55)
[2017-08-02] MEDS: Clobetasol 0.05% OINT* 30 GM TUBE TOPICAL SCH ×2 (09:56→22:32)
[2017-08-02] MEDS: CANAGLIFLOZIN 100 MG PO SCH (09:56)
--- NOTE | 2017-08-02 12:59 | PN ---
Subjective - Subjective Date of Service: 08/02/17 Service Type: 61876 Hosp care 15 min low complexity Subjective: Russ is seen in weekend coverage for NPP, Stella Rodrigez. The patient is hostile, loud and veritably shouting at me when I meet with her in the padilla outside her room. "That B-word, nurse, the one that was just in my room. I can 't say it or you'll keep me here longer. She wanted to test my sugar with a needle. What I need is a monitor. You should be doing the A1c. All this when there was urine in my toilet and I asked them to flush it for me, which she said she would. And they wouldn't even give me a yellow tub with water." I offer her some drinking water from the water dispenser in the cafeteria, but she shouts "No, not for drinking! For brushing my teeth!!!" She is hostile and paranoid but denies thoughts of harming herself or others. Objective - Appearance Appearance: Obese Dysmorphic Features: No Grooming: Fairly Well Kept - Behavior Psychomotor Activities: Normal Exhibits Abnormal Movement: No - Attitude and Relatedness Attitude and Relatedness: Hostile Eye Contact: Fair - Speech Quality: Pressured Latencies: Short Quantity: Copious - Mood Patient's Decription of Mood: "Angry" - Affect Observed Affect: Labile Affect Consistent with: Dysphoria - Thought Process Patient's Thought Process: Tangential Thought Content: Yes Paranoid Ideation, No Passive Wish, No Suicidal Planning, No Homicidal Ideation - Sensorium Experiencing Hallucinations: No, Sensorium is Clear Type of Hallucinations: Visual: No, Auditory: No, Command: No - Level of Consciousness Level of Consciousness: Alert Orientation: Yes Intact, Yes Orientated to Time, Yes Orientated to Place, Yes Orientated to Person - Impulse Control Impulse Control: Poor - Insight and Judgement Insight and Judgement: Impaired - Group Participation Particating in Group Activities: No - Medication Management Medication Management Adherence: Yes Assessment - Assessment Merits Inpatient Hospitalization: For Immediate Safety, For Stabilization Inpatient DSM-V Dx: F25.0 Clinical Impression: 52 y.o. single, white female resident of [facility] with a history of schizoaffective DO, bipolar type and developmental delay admitted voluntarily for increased agitated and aggressive behavior [facility]. Plan - Plan Treatment Plan: Name: RUSS MUIR Birthdate: 1965 [id number] The patient received an increased monthly dose of haldol decanoate on ( 07/31) but continues to be symptomatic from psychosis. Will continue to treat on the inpatient service. Continued Medication Management: Different Medication Medications: Current Medications Benztropine Mesylate (Cogentin Tab*) 0.5 mg PO BID [facility] Last Admin: 08/02/17 09:44 Dose: 0.5 mg Canagliflozin (Invokana (Nf)) 100 mg PO DAILY [facility] Last Admin: 08/02/17 09:56 Dose: Not Given Cholecalciferol (Vitamin D Tab*) 2,000 units PO DAILY [facility] Last Admin: 08/02/17 09:44 Dose: 2,000 units Clobetasol Propionate (Clobetasol 0.05% Oint*) 1 applic TOPICAL BID [facility] Last Admin: 08/02/17 09:56 Dose: Not Given Clonazepam (Klonopin Tab(*)) 0.5 mg PO BID PRN PRN Reason: .AGITATION Divalproex Sodium (Depakote Er Tab(*)) 500 mg PO DAILY [facility] Last Admin: 08/02/17 09:47 Dose: 500 mg Docusate Sodium (Colace Cap*) 100 mg PO DAILY [facility] Last Admin: 08/02/17 09:44 Dose: 100 mg Duloxetine HCl (Cymbalta Cap*) 30 mg PO DAILY [facility] Last Admin: 08/02/17 09:47 Dose: 30 mg Duloxetine HCl (Cymbalta Cap*) 60 mg PO DAILY [facility] Last Admin: 08/02/17 09:46 Dose: 60 mg Fluconazole (Diflucan 100 Mg Tab*) 100 mg PO DAILY [facility] Last Admin: 08/02/17 09:46 Dose: 100 mg Furosemide (Lasix Tab*) 20 mg PO DAILY [facility] Last Admin: 08/02/17 09:46 Dose: 20 mg Glipizide (Glucotrol Tab*) 10 mg PO BID WITH MEALS [facility] Last Admin: 08/02/17 09:45 Dose: 10 mg Hydroxyzine HCl (Atarax Tab*) 25 mg PO QID PRN PRN Reason: ANXIETY Ibuprofen (Advil Tab*) 200 mg PO Q6H PRN PRN Reason: PAIN Insulin Detemir (Levemir (Nf)) 10 unit SUBCUT DAILY [facility] Last Admin: 08/02/17 09:44 Dose: 10 unit Metformin HCl (Glucophage*) 1,000 mg PO BID WITH MEALS [facility] Last Admin: 08/02/17 09:44 Dose: 1,000 mg Mirabegron (Myrbetriq (Nf)) 25 mg PO DAILY [facility] Last Admin: 08/02/17 09:55 Dose: Not Given Nf: [place]-3 Fatty (Acids 1200mg Capsule) 1 dose PO DAILY [facility] Last Admin: 08/02/17 09:55 Dose: Not Given Nf: Calciprotriene 0 (.005% Topical) 1 dose TOPICAL BID [facility] Last Admin: 08/02/17 09:55 Dose: Not Given Polyethylene Glycol/Electrolytes (Miralax*) 17 gm PO DAILY [facility] Last Admin: 08/02/17 09:47 Dose: Not Given Potassium Chloride (Klor Con Er Tab*) 10 meq PO DAILY WITH MEAL [facility] Last Admin: 08/02/17 09:46 Dose: 10 meq Prazosin HCl (Minipress Cap*) 1 mg PO BEDTIME [facility] Last Admin: 08/01/17 22:46 Dose: 1 mg Quetiapine Fumarate (Seroquel Tab*) 400 mg PO BEDTIME [facility] Last Admin: 08/01/17 22:46 Dose: 400 mg Trazodone HCl (Desyrel Tab*) 50 mg PO BEDTIME [facility] Last Admin: 08/01/17 22:46 Dose: 50 mg - Discharge Plan Discharge Plan: Inpatient Hospitalization Lab Results - Lab Results Lab Results: 08/02/17 08/02/17 08/02/17 06:54 06:54 07:29 POC Glucose (mg/dL) 176 H Hemoglobin A1c 8.9 H Triglycerides 173 Cholesterol 133 LDL Cholesterol 74 HDL Cholesterol 24.4 Valproic Acid 25.0 L 08/02/17 11:52 POC Glucose (mg/dL) 213 H Hemoglobin A1c Triglycerides Cholesterol LDL Cholesterol HDL Cholesterol Valproic Acid
[2017-08-02] MEDS: Prazosin CAP* 1 MG PO SCH (22:29)
[2017-08-02] MEDS: traZODone TAB* 50 MG TAB PO SCH (22:29)
[2017-08-02] MEDS: QUEtiapine TAB* 100 MG PO SCH (22:29)
[2017-08-03] MEDS: CANAGLIFLOZIN 100 MG PO SCH (07:53)
[2017-08-03] MEDS: CALCIPOTRIENE 0.005% TOPICAL SCH ×2 (07:54→21:29)
[2017-08-03] MEDS: FISH OIL PO SCH (07:55)
[2017-08-03] MEDS: Docusate CAP* 100 MG PO SCH (09:32)
[2017-08-03] MEDS: Furosemide TAB* 20 MG PO SCH (09:32)
[2017-08-03] MEDS: glipiZIDE TAB* 5 MG PO SCH ×2 (09:32→17:29)
[2017-08-03] MEDS: DULoxetine DR CAP* 30 MG CAP.DR PO SCH (09:33)
[2017-08-03] MEDS: DULoxetine DR CAP* 60 MG CAP.DR PO SCH (09:33)
[2017-08-03] MEDS: metFORMIN* 1,000 MG TAB PO SCH ×2 (09:33→17:29)
[2017-08-03] MEDS: Benztropine TAB* 1 MG PO SCH ×2 (09:34→21:26)
[2017-08-03] MEDS: Potassium Chlor TAB* 10 MEQ TAB.ER PO SCH (09:34)
[2017-08-03] MEDS: Cholecalciferol TAB* 1000 UNITS PO SCH (09:35)
[2017-08-03] MEDS: Divalproex ER TAB(*) 500 MG PO SCH (09:35)
[2017-08-03] MEDS: Fluconazole 100 MG TAB* TAB PO SCH (09:35)
[2017-08-03] MEDS: MIRABEGRON 25 MG PO SCH (09:36)
[2017-08-03] MEDS: Polyethylene Glycol 3350* 17 GM PACKET PO SCH (09:36)
[2017-08-03] MEDS: Clobetasol 0.05% OINT* 30 GM TUBE TOPICAL SCH ×2 (09:37→21:29)
[2017-08-03] MEDS: INSULIN DETEMIR 100 UNIT/ML SUBCUT SCH (09:38)
[2017-08-03] MEDS: Prazosin CAP* 1 MG PO SCH (21:27)
[2017-08-03] MEDS: QUEtiapine TAB* 100 MG PO SCH (21:27)
[2017-08-03] MEDS: traZODone TAB* 50 MG TAB PO SCH (21:28)
[2017-08-03] MEDS ORDERED: QUEtiapine TAB* 100 MG ONE (23:08)
[2017-08-03] MEDS: hydrOXYzine HCL TAB* 25 MG PO PRN (23:12)
[2017-08-03] MEDS ORDERED: LORazepam INJ* 2 MG/ML 1 ML VIAL ONE (23:22)
[2017-08-04] MEDS: Benztropine TAB* 1 MG PO SCH ×2 (09:49→22:50)
[2017-08-04] MEDS: DULoxetine DR CAP* 30 MG CAP.DR PO SCH (09:50)
[2017-08-04] MEDS: DULoxetine DR CAP* 60 MG CAP.DR PO SCH (09:50)
[2017-08-04] MEDS: Docusate CAP* 100 MG PO SCH (09:50)
[2017-08-04] MEDS: Fluconazole 100 MG TAB* TAB PO SCH (09:50)
[2017-08-04] MEDS: Furosemide TAB* 20 MG PO SCH (09:51)
[2017-08-04] MEDS: metFORMIN* 1,000 MG TAB PO SCH ×2 (09:51→17:51)
[2017-08-04] MEDS: Cholecalciferol TAB* 1000 UNITS PO SCH (09:51)
[2017-08-04] MEDS: glipiZIDE TAB* 5 MG PO SCH ×2 (09:51→17:51)
[2017-08-04] MEDS: Potassium Chlor TAB* 10 MEQ TAB.ER PO SCH (09:51)
[2017-08-04] MEDS: MIRABEGRON 25 MG PO SCH (09:51)
[2017-08-04] MEDS: Divalproex ER TAB(*) 500 MG PO SCH (09:51)
[2017-08-04] MEDS: INSULIN DETEMIR 100 UNIT/ML SUBCUT SCH (09:54)
[2017-08-04] MEDS: Clobetasol 0.05% OINT* 30 GM TUBE TOPICAL SCH ×2 (09:59→22:50)
[2017-08-04] MEDS: CALCIPOTRIENE 0.005% TOPICAL SCH ×2 (10:00→22:50)
[2017-08-04] MEDS: Polyethylene Glycol 3350* 17 GM PACKET PO SCH (10:01)
[2017-08-04] MEDS: CANAGLIFLOZIN 100 MG PO SCH (10:01)
[2017-08-04] MEDS: FISH OIL PO SCH (10:02)
[2017-08-04] MEDS: hydrOXYzine HCL TAB* 25 MG PO PRN (10:40)
[2017-08-04] MEDS ORDERED: Divalproex ER TAB(*) 500 MG PO SCH (11:41)
--- NOTE | 2017-08-04 11:42 | PN ---
MHU: Group Therapy Note - Service Type Service Type: [id number] Group Psychotherapy - Cognitive Behavioral Group Psychotherapy Note: Kaylee described concerns about "contagions" in her bathroom, eventually stating that the bathroom is "full of sperm" and that " only housekeeping should go in there". She was redirected to group discussion, and remained attentive to staff and peer conversation. She presents with fair affect.
--- NOTE | 2017-08-04 11:51 | PN ---
<Megan Martínez - Last Filed: 08/04/17 11:45> Subjective - Subjective Service Type: 08214 Hosp care 15 min low complexity Subjective: Russ feels she was justified in her threatening behavior against other because they did not do what she wanted. Discussed inappropriateness of yelling and threatening behaviors as coping strategies. Reviewed coping skills she can use.Will increase Depakote ER to 1,000 mg/qd; valproic acid level 25. Patient agrees to increase. Diabetic education re: stable blood sugars help with mood stability. Staff reported during weekend that patient was having visual hallucinations; "organisms" were in patient bathroom, on inspection, bugs- possibly silverfish present, reported to housing keeping and equal opportunity assistant. c/o of continued vaginal itching, nystatin powder ordered. Objective - Appearance Appearance: Obese Dysmorphic Features: No Hygiene: Normal Grooming: Disheveled - Behavior Psychomotor Activities: Normal Exhibits Abnormal Movement: No - Attitude and Relatedness Attitude and Relatedness: Child Like Eye Contact: Good - Speech Quality: Unpressured Latencies: Long Quantity: Terse - Mood Patient's Decription of Mood: "Upset" - Affect Observed Affect: Labile Affect Consistent with: Dysphoria - Thought Process Patient's Thought Process: Tangential Thought Content: No Passive Wish, No Suicidal Planning, No Homicidal Ideation, No Paranoid Ideation - Sensorium Type of Hallucinations: Visual: No, Auditory: No, Command: No - Level of Consciousness Level of Consciousness: Alert Orientation: Yes Intact, Yes Orientated to Time, Yes Orientated to Place, Yes Orientated to Person - Impulse Control Impulse Control: Poor - Insight and Judgement Insight and Judgement: Poor - Group Participation Particating in Group Activities: Yes - Medication Management Medication Management Adherence: Yes Assessment - Assessment Merits Inpatient Hospitalization: For Immediate Safety, For Stabilization, For Discharge Planning Inpatient DSM-V Dx: F25.0 Clinical Impression: 52 year old single white female who is a resident of [facility]. Schizoaffective,bipolar type with developmental delay who was voluntarily admitted with increased agitation and aggressive behaviors in her snf. Depakote ER increased to 1,000mg/qd. Continued hospitalization required for stabilization, consolidation of improvements and discharge planning. Plan - Plan Treatment Plan: Name: RUSS MUIR Birthdate: 1965 [id number] Medications: Current Medications Benztropine Mesylate (Cogentin Tab*) 0.5 mg PO BID [facility] Last Admin: 08/04/17 09:49 Dose: 0.5 mg Canagliflozin (Invokana (Nf)) 100 mg PO DAILY [facility] Last Admin: 08/04/17 10:01 Dose: Not Given Cholecalciferol (Vitamin D Tab*) 2,000 units PO DAILY [facility] Last Admin: 08/04/17 09:51 Dose: 2,000 units Clobetasol Propionate (Clobetasol 0.05% Oint*) 1 applic TOPICAL BID [facility] Last Admin: 08/04/17 09:59 Dose: Not Given Clonazepam (Klonopin Tab(*)) 0.5 mg PO BID PRN PRN Reason: .AGITATION Divalproex Sodium (Depakote Er Tab(*)) 1,000 mg PO DAILY [facility] Docusate Sodium (Colace Cap*) 100 mg PO DAILY [facility] Last Admin: 08/04/17 09:50 Dose: 100 mg Duloxetine HCl (Cymbalta Cap*) 30 mg PO DAILY [facility] Last Admin: 08/04/17 09:50 Dose: 30 mg Duloxetine HCl (Cymbalta Cap*) 60 mg PO DAILY [facility] Last Admin: 08/04/17 09:50 Dose: 60 mg Fluconazole (Diflucan 100 Mg Tab*) 100 mg PO DAILY [facility] Last Admin: 08/04/17 09:50 Dose: 100 mg Furosemide (Lasix Tab*) 20 mg PO DAILY [facility] Last Admin: 08/04/17 09:51 Dose: 20 mg Glipizide (Glucotrol Tab*) 10 mg PO BID WITH MEALS [facility] Last Admin: 08/04/17 09:51 Dose: 10 mg Hydroxyzine HCl (Atarax Tab*) 25 mg PO QID PRN PRN Reason: ANXIETY Last Admin: 08/04/17 10:40 Dose: 25 mg Ibuprofen (Advil Tab*) 200 mg PO Q6H PRN PRN Reason: PAIN Insulin Detemir (Levemir (Nf)) 10 unit SUBCUT DAILY [facility] Last Admin: 08/04/17 09:54 Dose: 10 unit Metformin HCl (Glucophage*) 1,000 mg PO BID WITH MEALS [facility] Last Admin: 08/04/17 09:51 Dose: 1,000 mg Mirabegron (Myrbetriq (Nf)) 25 mg PO DAILY [facility] Last Admin: 08/04/17 09:51 Dose: 25 mg Nf: [place]-3 Fatty (Acids 1200mg Capsule) 1 dose PO DAILY [facility] Last Admin: 08/04/17 10:02 Dose: Not Given Nf: Calciprotriene 0 (.005% Topical) 1 dose TOPICAL BID [facility] Last Admin: 08/04/17 10:00 Dose: Not Given Nystatin (Nystatin Top Powder*) 1 applic TOPICAL BID [facility] Polyethylene Glycol/Electrolytes (Miralax*) 17 gm PO DAILY [facility] Last Admin: 08/04/17 10:01 Dose: Not Given Potassium Chloride (Klor Con Er Tab*) 10 meq PO DAILY WITH MEAL [facility] Last Admin: 08/04/17 09:51 Dose: 10 meq Prazosin HCl (Minipress Cap*) 1 mg PO BEDTIME [facility] Last Admin: 08/03/17 21:27 Dose: 1 mg Quetiapine Fumarate (Seroquel Tab*) 400 mg PO BEDTIME [facility] Last Admin: 08/03/17 21:27 Dose: 400 mg Trazodone HCl (Desyrel Tab*) 50 mg PO BEDTIME [facility] Last Admin: 08/03/17 21:28 Dose: 50 mg <Stella Rodrigez - Last Filed: 08/04/17 12:19> Subjective - Subjective Subjective: Above note reviewed and discussed with student. Zulema Plan - Plan Treatment Plan: Name: RUSS MUIR Birthdate: 1965 [id number] continue acute intensive psychiatric treatment. increase depakote, add nystatin powder. family/team meeting scheduled for 08/05/17 at 2:30pm. Continued Medication Management: Continue Outpt Medication Medications: Current Medications Benztropine Mesylate (Cogentin Tab*) 0.5 mg PO BID [facility] Last Admin: 08/04/17 09:49 Dose: 0.5 mg Canagliflozin (Invokana (Nf)) 100 mg PO DAILY [facility] Last Admin: 08/04/17 10:01 Dose: Not Given Cholecalciferol (Vitamin D Tab*) 2,000 units PO DAILY [facility] Last Admin: 08/04/17 09:51 Dose: 2,000 units Clobetasol Propionate (Clobetasol 0.05% Oint*) 1 applic TOPICAL BID [facility] Last Admin: 08/04/17 09:59 Dose: Not Given Clonazepam (Klonopin Tab(*)) 0.5 mg PO BID PRN PRN Reason: .AGITATION Divalproex Sodium (Depakote Er Tab(*)) 1,000 mg PO DAILY [facility] Docusate Sodium (Colace Cap*) 100 mg PO DAILY [facility] Last Admin: 08/04/17 09:50 Dose: 100 mg Duloxetine HCl (Cymbalta Cap*) 30 mg PO DAILY [facility] Last Admin: 08/04/17 09:50 Dose: 30 mg Duloxetine HCl (Cymbalta Cap*) 60 mg PO DAILY [facility] Last Admin: 08/04/17 09:50 Dose: 60 mg Fluconazole (Diflucan 100 Mg Tab*) 100 mg PO DAILY [facility] Last Admin: 08/04/17 09:50 Dose: 100 mg Furosemide (Lasix Tab*) 20 mg PO DAILY [facility] Last Admin: 08/04/17 09:51 Dose: 20 mg Glipizide (Glucotrol Tab*) 10 mg PO BID WITH MEALS [facility] Last Admin: 08/04/17 09:51 Dose: 10 mg Hydroxyzine HCl (Atarax Tab*) 25 mg PO QID PRN PRN Reason: ANXIETY Last Admin: 08/04/17 10:40 Dose: 25 mg Ibuprofen (Advil Tab*) 200 mg PO Q6H PRN PRN Reason: PAIN Insulin Detemir (Levemir (Nf)) 10 unit SUBCUT DAILY [facility] Last Admin: 08/04/17 09:54 Dose: 10 unit Metformin HCl (Glucophage*) 1,000 mg PO BID WITH MEALS [facility] Last Admin: 08/04/17 09:51 Dose: 1,000 mg Mirabegron (Myrbetriq (Nf)) 25 mg PO DAILY [facility] Last Admin: 08/04/17 09:51 Dose: 25 mg Nf: [place]-3 Fatty (Acids 1200mg Capsule) 1 dose PO DAILY [facility] Last Admin: 08/04/17 10:02 Dose: Not Given Nf: Calciprotriene 0 (.005% Topical) 1 dose TOPICAL BID [facility] Last Admin: 08/04/17 10:00 Dose: Not Given Nystatin (Nystatin Top Powder*) 1 applic TOPICAL BID [facility] Polyethylene Glycol/Electrolytes (Miralax*) 17 gm PO DAILY [facility] Last Admin: 08/04/17 10:01 Dose: Not Given Potassium Chloride (Klor Con Er Tab*) 10 meq PO DAILY WITH MEAL [facility] Last Admin: 08/04/17 09:51 Dose: 10 meq Prazosin HCl (Minipress Cap*) 1 mg PO BEDTIME [facility] Last Admin: 08/03/17 21:27 Dose: 1 mg Quetiapine Fumarate (Seroquel Tab*) 400 mg PO BEDTIME [facility] Last Admin: 08/03/17 21:27 Dose: 400 mg Trazodone HCl (Desyrel Tab*) 50 mg PO BEDTIME [facility] Last Admin: 08/03/17 21:28 Dose: 50 mg - Discharge Plan Discharge Plan: Outpatient Follow Up Outpatient Program: [facility] team
[2017-08-04] MEDS: Nystatin TOP POWDER* 15 GM BTL TOPICAL SCH ×2 (12:42→22:50)
[2017-08-04] MEDS: Prazosin CAP* 1 MG PO SCH (22:50)
[2017-08-04] MEDS: traZODone TAB* 50 MG TAB PO SCH (22:50)
[2017-08-04] MEDS: QUEtiapine TAB* 100 MG PO SCH (22:50)
[2017-08-05 08:48] VITALS: BP 129/73
[2017-08-05] MEDS ORDERED: PTO: Canagliflozin (NF) 100 MG TAB PO SCH (09:00)
[2017-08-05] MEDS: glipiZIDE TAB* 5 MG PO SCH (09:53)
[2017-08-05] MEDS: Cholecalciferol TAB* 1000 UNITS PO SCH (09:54)
[2017-08-05] MEDS: DULoxetine DR CAP* 30 MG CAP.DR PO SCH (09:55)
[2017-08-05] MEDS: DULoxetine DR CAP* 60 MG CAP.DR PO SCH (09:55)
[2017-08-05] MEDS: Potassium Chlor TAB* 10 MEQ TAB.ER PO SCH (09:55)
[2017-08-05] MEDS: Benztropine TAB* 1 MG PO SCH (09:55)
[2017-08-05] MEDS: Fluconazole 100 MG TAB* TAB PO SCH (09:56)
[2017-08-05] MEDS: Docusate CAP* 100 MG PO SCH (09:56)
[2017-08-05] MEDS: metFORMIN* 1,000 MG TAB PO SCH (09:56)
[2017-08-05] MEDS: Furosemide TAB* 20 MG PO SCH (09:57)
[2017-08-05] MEDS: MIRABEGRON 25 MG PO SCH (09:58)
[2017-08-05] MEDS: INSULIN DETEMIR 100 UNIT/ML SUBCUT SCH (10:00)
[2017-08-05] MEDS: Polyethylene Glycol 3350* 17 GM PACKET PO SCH (10:05)
[2017-08-05] MEDS: CALCIPOTRIENE 0.005% TOPICAL SCH (10:18)
[2017-08-05] MEDS: Clobetasol 0.05% OINT* 30 GM TUBE TOPICAL SCH (10:18)
[2017-08-05] MEDS: FISH OIL PO SCH (10:18)
--- NOTE | 2017-08-05 11:15 | PN ---
[facility]: Group Therapy Note - Service Type Service Type: [id number] Group Psychotherapy - Cognitive Behavioral Group Therapy ( CBT):Patient was attentive and participatory in CBT programming this morning, and remained in good behavioral control. Patient expressed positive insights regarding relevant treatment interventions and goals.
[2017-08-05] MEDS: Nystatin TOP POWDER* 15 GM BTL TOPICAL SCH (15:58)
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
== END 2017-08-05 17:00 | disposition home or self-care (01) | DRG 885 ==
LOC: ED 16:27 → BSU 22:15
PROVIDERS: ADMIT Psychiatry & Neurology Psychiatry; ATTEND Psychiatry & Neurology Psychiatry
PROC: GZHZZZZ Group Psychotherapy (ICD-10-PCS; principal; 2017-07-31)
DX: F25.0 Schizoaffective disorder, bipolar type (principal); I11.0 Hypertensive heart disease with heart failure; I50.9 Heart failure, unspecified; F50.9 Eating disorder, unspecified; E11.9 Type 2 diabetes mellitus without complications; Z68.41 Body mass index [BMI] 40.0-44.9, adult; B37.9 Candidiasis, unspecified; E78.00 Pure hypercholesterolemia, unspecified; E66.9 Obesity, unspecified; F32.9 Major depressive disorder, single episode, unspecified; F90.9 Attention-deficit hyperactivity disorder, unspecified type; F41.9 Anxiety disorder, unspecified; L40.9 Psoriasis, unspecified; Z62.810 Personal history of physical and sexual abuse in childhood; F79 Unspecified intellectual disabilities; K59.00 Constipation, unspecified; R62.50 Unspecified lack of expected normal physiological development in childhood; Z88.8 Allergy status to other drugs, medicaments and biological substances; Z95.810 Presence of automatic (implantable) cardiac defibrillator; Z98.51 Tubal ligation status; Z86.711 Personal history of pulmonary embolism; Z82.49 Family history of ischemic heart disease and other diseases of the circulatory system; Z79.84 Long term (current) use of oral hypoglycemic drugs; Z80.1 Family history of malignant neoplasm of trachea, bronchus and lung; Z91.5 Personal history of self-harm; Z81.1 Family history of alcohol abuse and dependence
CPT/HCPCS: 36415; 74019; 80053; 80061; 80164; 80307; 80320; 80329; 81003; 83036; 84443; 85025; 90853; 99222; 99231; 99238; 99284; A9270-GY; G0480; J2060

== ENCOUNTER 2018-02-27 01:28 | Emergency (ER) | payer MEDICARE, MEDICAID ==
[2018-02-27] MEDS ORDERED: Lidocaine 2% VISCOUS* 15 ML UDC PO ONE (01:59)
[2018-02-27] MEDS ORDERED: Al Hydrox/Mg Hydrox/Simet LIQ* 30 ML UDC PO ONE (01:59)
[2018-02-27] MEDS ORDERED: LORazepam TAB(*) 1 MG PO ONE (01:59)
[2018-02-27 02:22] LABS: ABS Basophils 0.1 10^3/ul (0-0.2); ABS Eosinophils 0.2 10^3/ul (0-0.6); ABS Lymphocytes 3.2 10^3/ul (1.0-4.8); ABS Monocytes 0.6 10^3/ul (0-0.8); ABS Neutrophils 2.7 10^3/ul (1.5-7.7); ABS Nucleated RBC 0 10^3/ul; Eosinophil % 3.2 % (0-6); Hematocrit 38 % (35-47); Lymphocyte % 46.8 % (25-47); Mean Corpuscular HGB Conc 34 g/dl (31-36); Mean Corpuscular Hemoglobin 30 pg (27-31); Mean Corpuscular Volume 89 fL (80-97); Mean Platelet Volume 7.4 um3 (7.4-10.4); Nucleated Red Blood Cells % 0.1; Platelet Count 177 10^3/ul (150-450); Red Blood Count 4.27 10^6/ul (4.00-5.40); Red Cell Distribution Width 14 % (10.5-15); White Blood Count 6.8 10^3/ul (3.5-10.8)
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
[2018-02-27 02:44] LABS: EGFR Non-African American 91.7 (>60)
[2018-02-27 04:55] VITALS: BP 134/94
--- NOTE | 2018-02-27 07:53 | RAD ---
HISTORY: chest pain COMPARISONS: October 30, 2016 VIEWS: 1: frontal portable view of the chest at 2:48 AM FINDINGS: LINES AND TUBES: A left-sided pacemaker is noted. CARDIOMEDIASTINAL SILHOUETTE: The cardiomediastinal silhouette is normal for portable technique. PLEURA: The costophrenic angles are sharp. No pleural abnormalities are noted. LUNG PARENCHYMA: The lung volumes are low. The lungs are clear. ABDOMEN: The upper abdomen is clear. There is no subphrenic gas. BONES AND SOFT TISSUES: No bone or soft tissue abnormalities are noted. IMPRESSION: LOW LUNG VOLUMES. NO ACTIVE CARDIOPULMONARY DISEASE. R0
== END 2018-02-27 04:55 | disposition home or self-care (01) ==
LOC: ED 01:28
DX: R07.9 Chest pain, unspecified (principal); E11.9 Type 2 diabetes mellitus without complications; F20.9 Schizophrenia, unspecified; Z95.0 Presence of cardiac pacemaker; Z79.01 Long term (current) use of anticoagulants; E07.9 Disorder of thyroid, unspecified; Z86.711 Personal history of pulmonary embolism; F90.9 Attention-deficit hyperactivity disorder, unspecified type
CPT/HCPCS: 36415; 71045; 80053; 84484; 85025; 93005; 99283; A9270-GY

== ENCOUNTER 2018-04-25 18:10 | Emergency (ER) | payer MEDICARE, MEDICAID ==
--- OUTSIDE RECORDS SUMMARY | 2018-04-25 18:19 | XMS REPORT | Continuity of Care Document ---
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 [phone] Lipase 39 U/L 11.0-82.0 C Reactive Protein 12.31 mg/L High < 5.00 30 Troponin-I (TnI) 0.00 ng/mL <0.04 31 TSH (Thyroid Stim Horm) 6.24 mcIU/mL High 0.34-5.60 Valproic Acid (Depakene) 66.0 g/mL 50-100 Comp Metabolic Panel 10/30/2016 [facility] Sodium 133 mmol/L 133- 145 [phone] Potassium 3.8 mmol/L 3.5-5.0 Chloride 100 mmol/L [...] Egfr Non- 87.9 >60 Egfr 113.0 >60 32 Laboratory test 10/30/2016 [facility] Partial 24.8 seconds Low 26.0- 36.3 finding [phone] Thrombo Time PTT Lactic Acid 5.7 mmol/L High 0.5-2.0 33 Inr/Protime 10/30/2016 [facility] Inr 0.95 0.89-1.11 [phone] Urinalysis Profile 10/30/2016 [facility] Urine Color Straw [phone] Urine Appearance Clear Urine Specific [place] 1.028 1.010-1.030 Urine pH 6.0 5-9 Urine Urobilinogen Negative Negative Urine Ketones Trace Negative Urine Protein Negative Negative Urine Leukocytes Negative Negative Urine Blood Negative Negative Urine Nitrite Negative Negative Urine Bilirubin Negative Negative Urine Glucose 3+(>=500 mg/dL) Negative Laboratory test 10/30/2016 [facility] B-Type Natriuretic 56 pg/mL 34 finding [phone] Peptide BNP CBC Auto Diff 10/30/2016 [facility] White Blood Count 6.3 10^3/uL 3.5-10. [phone] Red Blood Count 4.00 10^6/uL 4.0-5.4 Hemoglobin [...] Red Blood Cells % 0.1 Laboratory test 10/30/2016 [facility] Lactic Acid 2.8 mmol/L High 0.5 -2.0 35 finding [phone] Basic Metabolic 10/30/2016 [facility] Sodium 140 mmol/L 133-145 Panel [phone] Chloride 121 mmol/L High 101-111 Glucose 194 mg/dL High 70-100 Blood Urea Nitrogen 7 mg/dL 6-24 Creatinine 0.29 mg/dL Low 0.51-0.95 BUN/Creatinine Ratio 24.1 High 8-20 Egfr Non- 242.9 >60 Egfr 312.4 >60 36 Potassium 2.7 mmol/L Low 3.5-5.0 37 Co2 Carbon Dioxide 14 mmol/L Low 22-32 38 Anion Gap 5 mmol/L 2-11 Calcium 4.6 mg/dL Low 8.6-10.3 39 Laboratory test 10/30/2016 [facility] Lactic Acid 2.1 mmol/L High 0.5 -2.0 40 finding [phone] Comp Metabolic Panel 10/30/2016 [facility] Sodium 135 mmol/L 133- 145 [phone] Potassium 4.0 mmol/L 3.5-5.0 Chloride 106 mmol/L [...] Egfr Non- 129.6 >60 Egfr 166.6 >60 41 Laboratory test 08/21/2016 In House Hemoglobin A1c 7.3 finding Laboratory test 08/21/2016 [facility] Cytology SEE RESULT BELOW 42 finding [phone] Human Papilloma Virus Rna Negative Negative 43 1 No evidence of antibodies to B. burgdorferi detected. False negative results may occur in recently infected patients (<=2 weeks) due to low or undetectable antibody levels to B. burgdorferi. If recent exposure is suspected, a second sample should be collected and tested in 2-4 weeks. Test Performed by: [facility] [address], [place] [address] 2 Low risk: <1.00 Average risk: 1.00-3.00 High risk: >3.00 3 Desirable: <150 Borderline High: 150-199 High: 200-499 Very High: >500 4 Desirable: <200 Borderline High: 200-239 High: >239 5 Low: <40 Desirable: 40-60 High: >60 6 Desirable: <100 Near Optimal: 100-129 Borderline High: 130-159 High: 160-189 Very High: >189 7 Because ethnic data is not always [...] 5 Kidney failure <15 (or dialysis) 8 Therapeutic concentration: <50 ug/mL Toxic concentration: >120 ug/mL 9 The urine specimen was tested at the listed cutoffs: Drug class test level (ng/mL) Amphetamines 500 Barbiturates 200 Benzodiazepine metabolites 200 Cocaine metabolites 150 Cannabinoids 50 Opiates 300 Pcp 25 Specimen was received without chain of custody. Results should be used for medical purposes only. 10 The urine specimen was tested at the listed cutoffs: Drug class test level (ng/mL) Amphetamines 500 Barbiturates 200 Benzodiazepine metabolites 200 Cocaine metabolites 150 Cannabinoids 50 Opiates 300 Pcp 25 Specimen was received without chain of custody. Results should be used for medical purposes only. 11 Because ethnic data is not always readily [...] 15-29 5 Kidney failure <15 (or dialysis) 12 Therapeutic concentration: <50 ug/mL Toxic concentration: >120 ug/mL 13 SEE RESULT BELOW Name: VELMA HARPER : [address]: Christian Powell MD Acct: [id number] Unit: [id number] AGE: 52 Location: ED Re07/30/17 SEX: F Status: DEP ER SPEC: [id number] MARLENE: 07/30/17 [facility] DR: Christian Powell MD REQ: [id number] RECD: 07/30/17 STATUS: SUZANNE VARGAS DR: Davonte Majano MD _ SOURCE: URINE SPDESC: ORDERED: Urine Culture Procedure Result Reported Site Urine Culture Final 08/01/17- 745 ML No growth of clinically significant organisms * ML - MAIN LAB ([facility]) . END OF REPORT * ML=Testing performed at Main Lab DEPARTMENT OF PATHOLOGY, [address] [place] [address] Cuate Bennett M.D. Director [facility] # [id number] 14 Acute inflammation: >10.00 15 Because ethnic data is not always readily [...] 15-29 5 Kidney failure <15 (or dialysis) 16 Critical Result LACT:2.7 Called to [id number] at: 19:03:15 by:[id number] Read back by:[id number] DANIELA Severe Sepsis and Septic Shock Management Bundle Measure requires all lactic acids initially measuring >2.0 mmol/L be repeated. 17 Reference ranges based on room air. 18 The urine specimen was tested at the listed cutoffs: Drug class test level (ng/mL) Amphetamines 500 Barbiturates 200 Benzodiazepine metabolites 200 Cocaine metabolites 150 Cannabinoids 50 Opiates 300 Pcp 25 Specimen was received without chain of custody. Results should be used for medical purposes only. 19 Because ethnic data is not always readily [...] 15-29 5 Kidney failure <15 (or dialysis) 20 Therapeutic concentration: <50 ug/mL Toxic concentration: >120 ug/mL 21 SEE RESULT BELOW Name: VELMA HARPER : [address]: Fidel Prabhakar MD Acct: [id number] Unit: [id number] AGE: 52 Location: ED Re06/08/17 SEX: F Status: DEP ER SPEC: [id number] MARLENE: 06/08/17-[address]: Fidel Prabhakar MD REQ: [id number] RECD: 06/08/17 STATUS: SUZANNE VARGAS DR: Davonte Majano MD _ SOURCE: URINE SPDES: ORDERED: Urine Culture Procedure Result Reported Site Urine Culture Final 06/10/17- 1000 ML No growth of clinically significant organisms * ML - MAIN LAB ([facility]) . END OF REPORT * ML=Testing performed at Main Lab DEPARTMENT OF PATHOLOGY, [address] [place] [address] Cuate Bennett M.D. Director [facility] # [id number] 22 Because ethnic data is not always readily [...] 15-29 5 Kidney failure <15 (or dialysis) 23 Therapeutic concentration: <50 ug/mL Toxic concentration: >120 ug/mL 24 The urine specimen was tested at the listed cutoffs: Drug class test level (ng/mL) Amphetamines 500 Barbiturates 200 Benzodiazepine metabolites 200 Cocaine metabolites 150 Cannabinoids 50 Opiates 300 Pcp 25 Specimen was received without chain of custody. Results should be used for medical purposes only. 25 [id number] 26 SEE RESULT BELOW Name: VELMA HARPER : [address]: Ashlyn TORRES Acct: [id number] Unit: [id number] AGE: 52 Location: [facility] Re04/15/17 SEX: F Status: REG REF SPEC: [id number] MARLENE: 04/15/[address]: Ashlyn TORRES REQ: [id number] RECD: 04/15/17 STATUS: COMP _ SOURCE: ALEXI SPDESC: ORDERED: Genital Culture COMMENTS: [id number] Procedure Result Reported Site Genital Culture Final 04/17/17- 1111 ML Organism 1 NORMAL CELENA Quantity 2+ * ML - MAIN LAB ([facility]) . END OF REPORT * ML=Testing performed at Main Lab DEPARTMENT OF PATHOLOGY, [address] [place] [address] Cuate Bennett M.D. Director [facility] # [id number] 27 SEE RESULT BELOW Name: VELMA HARPER : [address]: Jesus Alberto Isaac MD Acct: [id number] Unit: [id number] AGE: 52 Location: ED Re04/12/17 SEX: F Status: DEP ER SPEC: [id number] MARLENE: 04/13/[address]: Haritha TORRES REQ: [id number] RECD: 04/13/17 STATUS: SUZANNE VARGAS DR: Jesus Alberto Majano MD _ SOURCE: URINE SPDESC: ORDERED: Urine Culture Procedure Result Reported Site Urine Culture Final 04/14/17- 1116 ML Organism 1 STREP GROUP B [place] Count 50-75,000 (Many) CFU/ML Organism 2 NORMAL CELENA [place] Count 1-10,000 (Few) CFU/ML Susceptibility testing of penicillins and other B-lactams approved by FDA for treatment of Streptococcus pyogenes (Group A Strep) and Streptococcus agalactiae (Group B Strep) is not necessary for clinical purposes and need not be done routinely, since as with vancomycin, resistant strains have not been recognized. (CLSI H135-C83;p.66) Positive isolates will be saved for one week. Please call the Microbiology Laboratory if further susceptibility testing is needed. * ML - MAIN LAB ([facility]) . END OF REPORT * ML=Testing performed at Main Lab DEPARTMENT OF PATHOLOGY, [address] [place] [address] Cuate Bennett M.D. Director [facility] # [id number] 28 Labs are complete, will be scanned in. 01/31/17. SL 29 REFERENCE VALUE 0.00 - 1.75 ADDITIONAL INFORMATION At a decision limit of 1.75 IU/L, this assay has 97% sensitivity and 99% specificity for detection of Graves' disease. In healthy individuals and in patients with thyroid disease without diagnosis of Graves' disease, the upper limit of anti-TSHR values are 1.22 IU/L and 1.58 IU/L, respectively (97.5th percentiles). Test Performed by: [address] [address] 30 Acute inflammation: >10.00 31 99th percentile=0.04 ng/mL Troponin results at [facility] and [facility] are not interchangeable. 32 Because ethnic data is not always readily [...] 15-29 5 Kidney failure <15 (or dialysis) 33 Critical Result LACT:5.7 Called to [id number] at: 03:38:26 by:[id number] Read back by:[id number] [facility] Severe Sepsis and Septic Shock Management Bundle Measure requires all lactic acids initially measuring >2.0 mmol/L be repeated. [facility] Severe Sepsis and Septic Shock Management Bundle Measure requires all lactic acids initially measuring >2.0 mmol/L be repeated. 34 >100 to <200 pg/mL: likely compensated congestive heart failure (CHF) 200 to 400 pg/mL: likely moderate CHF >400 pg/mL: likely moderate to severe CHF 35 Critical Result LACT:2.8 Called to [id number] at: 09:10:28 by:[id number] Read back by:[id number] [facility] Severe Sepsis and Septic Shock Management Bundle Measure requires all lactic acids initially measuring >2.0 mmol/L be repeated. 36 Because ethnic data is not always readily [...] 15-29 5 Kidney failure <15 (or dialysis) 37 Critical Result K:2.7 Called to [id number] at: 09:09:19 by:[id number] Read back by:[id number] 38 Critical Result CO2:14 Called to [id number] at: 09:09:19 by:[id number] Read back by:[id number] 39 Critical Result CA:4.6 Called to [id number] at: 09:09:19 by:[id number] Read back by:[id number] 40 Critical Result LACT:2.1 Called to ROCIO Pfeiffer at: 10:23:42 by:[id number] Read back by:ROCIO Pfeiffer [place] Severe Sepsis and Septic Shock Management Bundle Measure requires all lactic acids initially measuring >2.0 mmol/L be repeated. 41 Because ethnic data is not always readily [...] 15-29 5 Kidney failure <15 (or dialysis) 42 SEE RESULT BELOW Name: VELMA HARPER : [address]: Davonte Majano MD Acct: [id number] Unit: [id number] AGE: 51 Location: [facility] Re08/21/16 SEX: F Status: REG REF SPEC: [id number] MARLENE: 08/21/[address]: Davonte Majano MD REQ: [id number] RECD: 08/22/16 STATUS: SOUT _ ORDERED: IMAGE [...] (signature on file) VOLODYMYR Magdaleno (ASCP) 08/23 1420 This Pap test was evaluated with the assistance of the Meridium Test Imaging System. Due to cytologic findings at the cardiovascular technologist microscope, comprehensive manual rescreening by a Partition Setter may be required. The Pap Smear is [...] performed at Main Lab DEPARTMENT OF PATHOLOGY, [address] [place] [address] Cuate Bennett M.D. Director [facility] # [id number] 43 The high-risk HPV types detected by the assay include: 16, 18, 31, 33, 35, 39, 45, 51, 52, 56, 58, 59, 66, and 68. Procedures Date Code Description Status 12/14/2017 [id number] Mammogram Completed 06/30/2017 49396 Brief Emotional/Behav Assessment W/ Scoring Doc Per Completed Standard Inst 09/10/2016 [id number] Diabetic Foot Exam Completed 06/16/2014 [id number] Colonoscopy Completed Encounters Type Date Location Provider Dx Diagnosis Office Visit 04/07/2018 Main Office Koffi Aguilar E11.40 Type 2 diabetes 1:40p mellitus with diabetic neuropathy, unsp Z95.0 Presence of cardiac pacemaker M25.561 Pain in right knee R45.4 Irritability and anger Z79.4 group home (current) use of insulin L40.9 Psoriasis, unspecified Office Visit 03/10/2018 9:30a Main Office Davonte Majano B37.3 Candidiasis of M.D. vulva and vagina R07.89 Other chest pain Z23 Encounter for immunization Office Visit 01/06/2018 4:15p Main Office Davonte Majano L03.317 Cellulitis of M.D. buttock Office Visit 12/30/2017 1:40p Main Office Ashlyn Smyth E11.40 Type 2 diabetes P.A. 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 buttock B37.3 Candidiasis of vulva and vagina N32.81 Overactive bladder N39.41 Urge incontinence Z23 Encounter for immunization E11.65 Type 2 diabetes mellitus with hyperglycemia Office Visit 10/22/2017 3:00p Main Office Davonte Majano L03.317 Cellulitis of M.D. buttock R21 Rash and other nonspecific skin eruption E11.40 Type 2 diabetes mellitus with diabetic neuropathy, unsp Office Visit 09/23/2017 11:00a Main Office Ashlyn Smyth E11.40 Type 2 diabetes P.A. 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 and vagina B35.4 Tinea corporis N76.0 Acute vaginitis Office Visit 03/24/2017 10:15a Main Office Davonte Majano, E11.40 Type 2 diabetes M.D. mellitus with diabetic neuropathy, unsp E03.9 Hypothyroidism, unspecified Z23 Encounter for immunization N32.81 Overactive bladder F25.0 Schizoaffective disorder, bipolar type Z71.89 Other specified counseling E66.9 Obesity, unspecified F50.81 Binge eating disorder Z41.8 [facility] Visit 01/08/2017 10:00a Main Office Nurse's Schedule E11.40 Type 2 diabetes mellitus with diabetic neuropathy, unsp Office Visit 12/23/2016 9:30a Main Office Davonte Majano, E11.40 Type 2 diabetes M.D. 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 mellitus with diabetic neuropathy, unsp Z91.11 Patient's noncompliance with dietary regimen Office Visit 08/21/2016 2:30p Main Office Davonte Majano, E11.9 Type 2 diabetes M.D. mellitus without complications F25.0 Schizoaffective disorder, bipolar type Z12.31 Encntr screen mammogram for malignant neoplasm of breast Z12.4 Encounter for screening for malignant neoplasm of cervix L40.9 Psoriasis, unspecified B37.3 Candidiasis of vulva and vagina Office Visit 06/07/2016 11:15a Main Office Davonte Majano, E11.9 Type 2 diabetes M.D. mellitus without complications B37.3 Candidiasis of vulva and vagina G25.1 Drug-induced tremor F25.0 Schizoaffective disorder, bipolar type F60.3 Borderline personality disorder Office Visit 05/22/2016 1:15p Main Office Davonte Majano, E11.9 Type 2 diabetes M.D. mellitus without complications R21 Rash and other nonspecific skin eruption R60.0 Localized edema B37.3 Candidiasis of vulva and vagina Z23 Encounter for immunization Z41.8 Encntr for oth proc for purpose oth [facility] Plan of Treatment 06/13/2017 - Koffi AguilarE11.40 Type 2 diabetes mellitus with diabetic neuropathy, unspComments:will increase IwusidbR36.3 Candidiasis of vulva and vaginaNew Medication:Fluconazole 100 mg - 2 tabs day one, then 1 tab days 2- 6Follow up:can try OTC vagisil cream to reduce the external onzfjlfR63.4 Irritability and angerComments:Pt will cont to live at current residence and cont psychiatric management with Dr. Mcwilliams.Follow up:Intermittent: f/u with Dr. 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
[2018-04-25 18:31] VITALS: BP 142/80
[2018-04-25] MEDS ORDERED: Acyclovir* 200 MG CAP PO ONE (18:43)
[2018-04-25] MEDS ORDERED: Acetaminophen TAB* 325 MG PO ONE (18:43)
--- NOTE | 2018-04-25 18:48 | UC ---
Skin Complaint HPI - HPI Summary HPI Summary: pain on right side of head is sharp and burning---did have psoriasis and was treated with a cream in the same location recently - History of Current Complaint Chief Complaint: UCHeadache Time Seen by Provider: 04/25/18 18:33 Stated Complaint: HEAD PAIN Hx Obtained From: Patient ?: No Onset/Duration: Sudden Onset Timing: Constant Pain Intensity: 10 Pain Scale Used: 0-10 Numeric Location: Other - right side of scalp parietal area Character: Pain, Redness Aggravating Factor(s): Touch Alleviating Factor(s): Nothing Associated Signs & Symptoms: Positive: Rash - Allergy/Home Medications Allergies/Adverse Reactions: Allergies Allergy/AdvReac Type Severity Reaction Status Date / Time carbamazepine [From Tegretol] Allergy Unknown Unknown Verified 08/01/17 00:37 Reaction Details clozapine Allergy Unknown Unknown Verified 08/01/17 00:37 Reaction Details Review of Systems All Other Systems Reviewed And Are Negative: Yes Constitutional: Positive: Negative Skin: Positive: Rash - red vesicular tender to touch Eyes: Positive: Negative ENT: Positive: Negative Respiratory: Positive: Negative Cardiovascular: Positive: Negative Gastrointestinal: Positive: Negative Genitourinary: Positive: Negative Motor: Positive: Negative Neurovascular: Positive: Negative Musculoskeletal: Positive: Negative Neurological: Positive: Negative Psychological: Positive: Negative Is Patient Immunocompromised?: No PMH/Surg Hx/FS Hx/Imm Hx Previously Healthy: No Endocrine History: Diabetes Psychological History: Depression, Schizophrenia Other History Of: Anticoagulant Therapy - Surgical History Surgical History: Yes Surgery Procedure, Year, and Place: Tubal Ligation, Pacemaker Placement 2014, Bladder Repair at Age 1. - Family History Known Family History: Positive: Cardiac Disease - father - [place] - Social History Occupation: Disabled Lives: With Family Alcohol Use: None Substance Use Type: None Smoking Status (MU): Never Smoked Tobacco Have You Smoked in the Last Year: No - Immunization History Most Recent Influenza Vaccination: 2015/2016 Season Most Recent Tetanus Shot: Less than 10 years Most Recent Pneumonia Vaccination: unknown Physical Exam Triage Information Reviewed: Yes Appearance: Well-Appearing, No Pain Distress, Well-Nourished Vital Signs: Initial Vital Signs Temp 99.1 F 04/25/18 18:23 Pulse 93 04/25/18 18:23 Resp 18 04/25/18 18:23 BP 142/80 04/25/18 18:23 Pulse Ox 97 04/25/18 18:23 Vital Signs Reviewed: Yes Eye Exam: Normal Eyes: Positive: Conjunctiva Clear ENT Exam: Normal ENT: Positive: Normal ENT inspection, Hearing grossly normal. Negative: Trismus , Muffled voice, Hoarse voice Neck exam: Normal Neck: Positive: Supple, Nontender, No Lymphadenopathy Respiratory Exam: Normal Respiratory: Positive: Chest non-tender, No respiratory distress, No accessory muscle use Cardiovascular Exam: Normal Cardiovascular: Positive: RRR, Pulses Normal, Brisk Capillary Refill Musculoskeletal Exam: Normal Musculoskeletal: Positive: Strength Intact, ROM Intact Neurological Exam: Normal Neurological: Positive: Alert, Muscle Tone Normal Psychological Exam: Normal Psychological: Positive: Normal Response To Family Skin: Positive: Rashes - right side of scalp Diagnostics - Laboratory Diagnostic Studies Completed/Ordered: swab obtained for varicella pcr Course/Dx - Course Course Of Treatment: tyelnol, acyclovir lab studies follow with pcp - Diagnoses Provider Diagnoses: hypertension in poor control shingles Discharge - Sign-Out/Discharge Documenting (check all that apply): Patient Departure All imaging exams completed and their final reports reviewed: No Studies - Discharge Plan Condition: Stable Disposition: HOME Prescriptions: Acyclovir* [Zovirax 400 MG TAB*] 800 mg PO 5ID 7 Days #70 tab Patient Education Materials: Shingles (ED), Hypertension (ED) Referrals: Davonte Majano MD [Primary Care Provider] - 1 Week - Billing Disposition and Condition Condition: STABLE Disposition: Home
--- NOTE | 2018-04-29 11:56 | UC ---
- Progress Note Progress Note: PLS CALL PT. ADVISE THAT SWAB POSITIVE FOR ZOSTER (SHINGLES). CONTINUE ACYCLOVIR AND F/U PCP ADVISED. - KRUPA SAHU MD Discharge - Sign-Out/Discharge Documenting (check all that apply): Post-Discharge Follow Up All imaging exams completed and their final reports reviewed: No Studies - Discharge Plan Condition: Stable Disposition: HOME Prescriptions: Acyclovir* [Zovirax 400 MG TAB*] 800 mg PO 5ID 7 Days #70 tab Patient Education Materials: Shingles (ED), Hypertension (ED) Referrals: Davonte Majano MD [Primary Care Provider] - 1 Week - Billing Disposition and Condition Condition: STABLE Disposition: Home
== END 2018-04-25 19:20 | disposition home or self-care (01) ==
LOC: UCEAST 18:10
DX: B02.9 Zoster without complications (principal); I10 Essential (primary) hypertension; E11.9 Type 2 diabetes mellitus without complications; Z88.8 Allergy status to other drugs, medicaments and biological substances
CPT/HCPCS: 87798; 99212; A9270-GY; G0463

== ENCOUNTER 2018-05-26 16:58 | Emergency (ER) | payer MEDICARE, MEDICAID ==
[2018-05-26] MEDS ORDERED: Nicotine Inhaler* 10 MG AMP INH PRN (17:02)
[2018-05-26 17:21] LABS: ABS Basophils 0.1 10^3/ul (0-0.2); ABS Eosinophils 0.1 10^3/ul (0-0.6); ABS Lymphocytes 2.5 10^3/ul (1.0-4.8); ABS Monocytes 0.5 10^3/ul (0-0.8); ABS Neutrophils 3.1 10^3/ul (1.5-7.7); ABS Nucleated RBC 0 10^3/ul; Eosinophil % 1.5 %; Hematocrit 39 % (35-47); Hemoglobin 13.2 g/dl (12.0-16.0); Lymphocyte % 39.5 %; Mean Corpuscular HGB Conc 34 g/dl (31-36); Mean Corpuscular Hemoglobin 31 pg (27-31); Mean Corpuscular Volume 90 fL (80-97); Nucleated Red Blood Cells % 0.1; Platelet Count 242 10^3/ul (150-450); Red Blood Count 4.27 10^6/ul (4.00-5.40); Red Cell Distribution Width 14 % (10.5-15); White Blood Count 6.3 10^3/ul (3.5-10.8)
--- OUTSIDE RECORDS SUMMARY | 2018-05-26 17:28 | XMS REPORT | Continuity of Care Document ---
:1965 External Reference #:[id number] Author Name Davonte Majano M.D. Address [address] [facility] [address] [place] [address] Care Team Providers Name Role Phone HCP given Primary Care Physician Unavailable Payers Type Date Identification Numbers Payment Provider Subscriber Policy Number: [id number] [facility] Velma Harper PayID: [id number] [address] [place] [address] Policy Number: [id number] Medicaid Velma Harper PayID: [id number] [place] [address] Advance Directives Description No Information Available Problems [...] Yes Contraceptive Methods Tubal Ligation Age 1st Gillespie 20 Years Old Allergies, Adverse Reactions, Alerts Date Description Reaction Status Severity Comments 05/22/2016 Tegretol Active 05/22/2016 Clozaril Active Medications Medication Date Status Form Strength Qnty SIG Indications Ordering Provider Clobetasol 05/12/ Active Solution 0.05% 100ml apply to L40.9 Silcoff, Propionate 2018 the Davonte affected M.D. area on scalp twice a day as needed for psoriasis; use up to 2wks then take 2wks off then resume if needed Haloperidol 03/12/ Active Tablets 5mg 1 by mouth Unknown 2017 daily Haloperidol 02/27/ Active Tablets 10mg 30tabs 1 tablet by Unknown 2018 mouth daily Tums 02/27/ Active Chewtabs 500mg prn use for Unknown 2018 heartburn Furosemide 02/22/ Active Tablets 20mg 90tabs Take One R60.0 Silcoaleja, 2017 Tablet By Davonte Mouth Every M.D. Morning For Edema Shingrix 11/07/ Hx Suspension 50mcg 2units administer Z23 Silcoaleja, 2018 - Rec 2 doses as Davonte 09/06/ directed, M.D. 2019 per cdc guidelines Metamucil 09/22/ Active used as Unknown Fiber 2018 needed Vistaril 08/05/ Active Capsules 25mg take 1 Unknown 2017 capsule by mouth every 6 hours as needed for anxiety Divalproex 08/05/ Active Tablets ER 500mg 1 by mouth R45.4 Unknown Sodium ER 2018 24HR every morning and 2 at bedtime; for mood F25.0 Levemir 08/05/2017 Active Solution 100Unit/ML 15units Increase E11.40 Silcoff, Flextouch Pen-Inject To Inject Davonte 30 Units M.D. Every Morning For Blood Sugar Control Freestyle 07/23/2017 Active Strips 100units use once E11.40 Silcoff, Lite Test daily Davonte, before M.D. breakfast Glucose 06/30/2017 Active 1units Use 2-3 E11.40 Silcoff, Monitor times a Davonte, day to M.D. test glucose levels for diabetes Ibuprofen 03/23/2017 Active Tablets 200mg as needed Unknown as directed Pen Candia 12/24/2016 Active Misc 31G X 8 mm 100units use as E11.40 Silcoff, 10/29" directed Davonte for M.D. insulin administra tion Myrbetriq 12/23/2016 Active Tablets ER 25mg 30tabs Take One N32.81 Silcoff, 24HR Tablet By Davonte Mouth M.DNapoleon Every Day For Overactive Bladder Clonazepam 12/22/2016 Active Tablets 0.5mg 60tabs Take One F25.0 Silcoff, Tablet By Davonte Mouth M.DNapoleon Twice A Day For Anxiety as Needed Maximum Daily Dose=2 Tablets Benztropine 08/13/2016 Active Tablets 0.5mg 1 by mouth F25.0 Unknown Mesylate twice a day for tremors Atorvastati 08/13/2016 Active Tablets 20mg 30tabs Take One E11.9 Silcoff, n Calcium Tablet By Karolina Arauz M.DNapoleon Every Day For Prevention Of Heart Attack And Stroke E11.40 Lancets 08/12/2016 Active Misc 30G 100units use up to E11.9 Silcoff, once daily Davonte for blood M.D. sugar testing Fish Oil 06/06/2016 Active Capsules 1200m 1 capsule po Unknown g daily Vitamin D 06/06/2016 Active Capsules 2000U 1 capsule po Unknown nit daily Prazosin HCL 05/21/2016 Active Capsules 1mg 30caps 1 by mouth F25.0 Silcoff, nightly Elizabeth Arauz Seroquel 05/21/2016 Active Tablets 400mg 30tabs 1 by mouth F25.0 Silcoff, every night Davonte at bedtime M.D. Glipizide 05/21/2016 Active Tablets 10mg 180tabs take 1 E11.9 Silcoff, tablet by Davonte mouth two M.D. times daily; for blood [...] mood; take along with a 60mg capsule Invokana 05/21/2016 Active Tablets 100mg 30tabs Take One E11.9 Silcoff, Tablet By Davonte, Mouth Every M.D. Day For Blood Sugar Control Klor-Con 10 05/21/2016 Active Tablets ER 10Meq 30tabs Take One Silcoff , Tablet By Davonte, Mouth Every M.D. Day For Potassium Replacement Acyclovir 04/25/2018 - Hx Tablets 400mg 70tabs 2 tablets Unknown 05/02/2018 (800 mg) five times a day x 7 days Betamethasone 04/15/2018 - Hx Cream 0.1% 45gm apply to L40.9 Silcoff, Valerate 05/12/2018 affected Davonte, areas on M.D. scalp 2x/day as needed for psoriasis; stop using when rash is much better; resume as needed Clobetasol 04/14/2018 - Hx Cream 0.05% 45gm thin layer L40.9 Sopchak, Propionate 04/15/2018 on effected Farrukh, areas 2 D.O. times a day until clear. Tazorac 04/07/2018 - Hx Gel 0.05% 60gm Apply once L40.9 Silcoff, 04/14/2018 daily to Davonte, psoriatic M.D. lesions using enough (2 mg/cm2) to cover only the lesion with a thin film. Diclofenac 04/07/2018 - Hx Gel 3% 100gm 4 grams M25.56 Silcoff, Sodium 04/30/2018 topical four 1 Davonte, times daily M.D. as needed for right knee pain Fluconazole 03/10/2018 - Hx Tablets 150mg 4tabs 1 tab by B37.3 Silcoff, 04/07/2018 mouth once a Davonte, week for 4 M.D. weeks; for vaginal yeast infection Cephalexin 01/06/2018 - Hx Tablets 500mg 30tabs 1 by mouth L03.31 Silcoff, 01/16/2018 3x a day x10 7 Davonte, days; for M.D. skin infection Nystatin 11/07/2017 - Hx Cream 33661 30gm apply to B37.3 Silcoff, 05/11/2018 0Unit affected Davonte, /GM area(s) in M.D. genital region and buttocks three times a day until clear Fluconazole 11/06/2017 - Hx Tablets 150mg 1tabs take one B37.3 Silcoff, 11/07/2017 tablet by Davonte, mouth as one M.D. dose for yeast infection Cephalexin 10/22/2017 - Hx Tablets 500mg 30tabs 1 by mouth L03.31 Silcoff, 11/01/2017 3x a day x10 7 amy Arauz; for M.D. skin infection Fluconazole 10/14/2017 - Hx Tablets 150mg 1tabs take one B37.3 Silcoff, 10/21/2017 tablet by Davonte, mouth as one M.D. dose for yeast infection Fluconazole 09/08/2017 - Hx Tablets 150mg 1tabs take one B37.3 Silcoff, 09/09/2017 tablet by Davonte mouth as one M.D. [...] 07/23/2017 times a day Elizabeth Arauz Accu-Chek Jie 06/25/2017 - Hx Device 1units use as E11.40 Silcoff, 08/11/2017 directed for Davonte blood sugar Elizabeth monitoring Fluconazole 06/13/2017 - Hx Tablets 100mg 8tabs 2 tabs day B37.3 Silcoff, 07/14/2017 one, then 1 Davonte, tab days 2-6 M.D. Fluconazole 04/15/2017 - Hx Tablets 150mg 11tabs 2 tabs by B37.3 Silcoff, 06/12/2017 mouth day Davonte one, then 1 M.D. po qd x [...] B Silcoff, 12/30/2016 ab tablet by 3 Davonte, s mouth as one 7 M.D. dose for . yeast 3 infection; repeat in 1 week Cormax Scalp Application 12/23/2016 - Hx Solution 0.05% 10 apply to L Silcoff, 09/22/2017 0m involved 4 Davonte, l areas on 0 M.D. scalp up to . 2x/day for 9 uup to 2 weeks, then stop for at least 2wks before resuming it Dovonex 08/21/2016 - Hx Cream 0.005% 60 apply a thin L Silcoff, 06/12/2017 gm layer to 4 Davonte, affected 0 M.D. areas on ears . twice a day 9 for psoriasis Fluconazole 08/21/2016 - Hx Tablets 150mg 1t take one B Silcoff, 08/22/2016 ab tablet by 3 Davonte, s mouth as one 7 M.D. dose for [...] - Hx Strips 10 use once E Silcoff, Strips 08/11/2017 0u daily and as 1 [...] 3 infection Nystatin-Triamcinolone 05/22/2016 - Hx Cream 960809-6. 30 apply to B Silcoff, 06/01/2016 1Unit/GM- gm affected 3 Corey Arauz areas on 7 M.D. vulva (don't . use 3 internally) 3 times a day as needed until clear; for yeast rash Depakote ER 05/21/2016 - Hx Tablets ER 500mg 90 1 by mouth Silcoff, 07/25/2017 24HR ta every steven Arauz morning, 2 by Elizabeth mouth every bedtime; for mood Triamcinolone Acetonide 05/21/2016 - Hx Cream 0.1% apply thin Unknown 08/13/2016 layer to affected areas twice a day Wellbutrin SR 05/21/2016 - Hx Tablets ER 100mg 1 by mouth Unknown 08/13/2016 12HR twice a day Lasix 05/21/2016 - Hx Tablets 20mg 90 1 every day R Silco, 2018 ta in the 6 steven Arauz [...] 7 Unknown 06/12/2017 days for vaginal infection Valacyclovir HCL - Hx Tablets 1gm 1 tab 1 time B Unknown 05/03/2018 a day for 7 0 days for 2 shingles . 9 Immunizations CPT Code Status Date Vaccine Lot # [id number] Given 03/10/2018 Influenza Virus Vaccine, Quadrivalent, Split, [id number] Preservative Free 76571 Given 03/24/2017 Adacel or Boostrix, TDaP [id number] 84987 Given 03/24/2017 Influenza Virus Vaccine, Quadrivalent, Split, [id number] Preservative Free 60547 Given 05/22/2016 Influenza Virus Vaccine, Quadrivalent, Split, [id number] Preservative Free Vital Signs Date Vital Result Comment 05/12/2018 2:33pm BP Systolic 118 mmHg BP Diastolic 72 mmHg 04/30/2018 1:40pm BP Systolic 116 mmHg BP Diastolic 84 mmHg Body Temperature 98.1 F Weight 227.00 lb w/shoes 04/07/2018 1:39pm BP Systolic 104 mmHg BP [...] Date Facility Test Result H/L Range Note Varicella Zoster 04/25/2018 [facility] Varicella See Comment 1 Culture [phone] Zoster Source Varicella Zoster Result Positive Abnormal Negative 2 Laboratory test 04/07/2018 In House Hemoglobin A1c 7.5 finding Laboratory test 02/27/2018 [facility] Troponin-I (TnI) 0.00 ng/mL < 0.04 finding [phone] Laboratory test 12/30/2017 In House Hemoglobin A1c 8.1 finding Laboratory test 11/07/2017 [facility] Lyme Disease Negative Negative 3 finding [phone] Serology Laboratory test 11/05/2017 [facility] CRP High 5.67 mg/L 4 finding [phone] Sensitivity Lipid Profile 11/05/2017 [facility] Triglycerides 136 mg/dL 5 (Trig/Chol/HDL) [phone] Cholesterol 104 mg/dL 6 HDL Cholesterol 28.2 mg/dL 7 LDL Cholesterol 49 mg/dL 8 Laboratory test finding 11/05/2017 [facility] Ast (Sgot) 14 U/L N 13- 39 [phone] Creatine Kinase(CK) 40 U/L N 10-223 Laboratory test 09/23/2017 In House Hemoglobin A1c 8.0 finding CBC Auto Diff 07/31/2017 [facility] White Blood Count 6.2 10^3/uL N 3.5-10.8 [phone] Red Blood Count 4.61 10^6/uL N 4.0-5.4 Hemoglobin 13.7 g/dL N 12.0-16.0 Hematocrit 40 % N 35-47 Mean Corpuscular Volume 87 fL N 80-97 Mean Corpuscular Hemoglobin 30 pg N 27-31 Mean Corpuscular HGB Conc 34 g/dL N 31-36 Red Cell Distribution Width 14 % N 10.5-15 Platelet Count 263 10^3/uL N 150-450 Mean Platelet Volume 7 um3 Low 7.4-10.4 Abs Neutrophils 3.5 10^3/uL N 1.5-7.7 Abs Lymphocytes 2.1 10^3/uL N 1.0-4.8 Abs Monocytes 0.5 10^3/uL N 0-0.8 Abs Eosinophils 0.1 10^3/uL N 0-0.6 Abs Basophils 0 10^3/uL N 0-0.2 Abs Nucleated RBC 0 10^3/uL Granulocyte % 56.6 % N 38-83 Lymphocyte % 33.5 % N 25-47 Monocyte % 7.6 % N 1-9 Eosinophil % 1.8 % N 0-6 Basophil % 0.5 % N 0-2 Nucleated Red Blood Cells % 0 Comp Metabolic Panel 07/31/2017 [facility] Sodium 136 mmol/L N 133- 145 [phone] Potassium 4.3 mmol/L N 3.5-5.0 Chloride 98 mmol/L Low 101-111 Co2 Carbon Dioxide 29 mmol/L N 22-32 Anion Gap 9 mmol/L N 2-11 Glucose 273 mg/dL High 70-100 Blood Urea Nitrogen 15 mg/dL N 6-24 Creatinine 0.69 mg/dL N 0.51-0.95 BUN/Creatinine Ratio 21.7 High 8-20 Calcium 9.6 mg/dL N 8.6-10.3 Total Protein 8.2 g/dL N 6.4-8.9 Albumin 4.0 g/dL N 3.2-5.2 Globulin 4.2 g/dL High 2-4 Albumin/Globulin Ratio 1.0 N 1-3 Total Bilirubin 0.30 mg/dL N 0.2-1.0 Alkaline Phosphatase 88 U/L N 34-104 Alt 11 U/L N 7-52 Ast 14 U/L N 13-39 Egfr Non- 89.0 >60 Egfr 114.5 >60 9 Laboratory test finding 07/31/2017 [facility] Acetaminophen < 15 g/ mL 10 [phone] Alcohol < 10 mg/dL N <10 Salicylate < 2.50 mg/dL <30 TSH (Thyroid Stim Horm) 2.39 mcIU/mL N 0.34-5.60 Urine Drug 07/31/2017 [facility] Amphetamine Ur None Detected None Detect SCR ED & [phone] Screen Pain Clinic Barbiturates Urine Screen None Detected None Detect Benzodiazepine Urine Screen None Detected None Detect Urine Cannabinoids Screen None Detected None Detect Urine Cocaine Screen None Detected None Detect Urine Opiates Screen None Detected None Detect Urine Phencyclidine Screen None Detected None Detect 11 Urinalysis Profile 07/31/2017 [facility] Urine Color Straw [phone] Urine Appearance Clear Urine Specific [place] 1.028 N 1.010-1.030 Urine pH 6.0 N 5-9 Urine Urobilinogen Negative Negative Urine Ketones Trace Abnormal Negative Urine Protein Negative Negative Urine Leukocytes Trace Abnormal Negative Urine Blood Negative Negative Urine Nitrite Negative Negative Urine Bilirubin Negative Negative Urine Glucose 3+(>=500 mg/dL) Abnormal Negative Urine White Blood Cell Trace(0-5/hpf) Absent Urine Red Blood Cell Trace(0-2/hpf) Absent Urine Bacteria Absent Absent Urine Squamous Epithelial Cell Present Abnormal Absent Urinalysis Profile 07/30/2017 [facility] Urine Color Yellow [phone] Urine Appearance Clear Urine Specific [place] 1.017 N 1.010-1.030 Urine pH 7.0 N 5-9 Urine Urobilinogen Negative Negative Urine Ketones 1+ Abnormal Negative Urine Protein Negative Negative Urine Leukocytes Trace Abnormal Negative Urine Blood Negative Negative Urine Nitrite Negative Negative Urine Bilirubin Negative Negative Urine Glucose 3+(>=500 mg/dL) Abnormal Negative Urine White Blood Cell Trace(0-5/hpf) Absent Urine Red Blood Cell Trace(0-2/hpf) Absent Urine Bacteria Absent Absent Urine Squamous Epithelial Cell Present Abnormal Absent CBC Auto Diff 07/30/2017 [facility] White Blood Count 6.3 10^3/uL N 3.5-10.8 [phone] Red Blood Count 4.49 10^6/uL N 4.0-5.4 Hemoglobin 13.2 g/dL N 12.0-16.0 Hematocrit 39 % N 35-47 Mean Corpuscular Volume 87 fL N 80-97 Mean Corpuscular Hemoglobin 29 pg N 27-31 Mean Corpuscular HGB Conc 34 g/dL N 31-36 Red Cell Distribution Width 14 % N 10.5-15 Platelet Count 270 10^3/uL N 150-450 Mean Platelet Volume 7 um3 Low 7.4-10.4 Abs Neutrophils 3.1 10^3/uL N 1.5-7.7 Abs Lymphocytes 2.6 10^3/uL N 1.0-4.8 Abs Monocytes 0.4 10^3/uL N 0-0.8 Abs Eosinophils 0.1 10^3/uL N 0-0.6 Abs Basophils 0.1 10^3/uL N 0-0.2 Abs Nucleated RBC 0 10^3/uL Granulocyte % 49.0 % N 38-83 Lymphocyte % 41.4 % N 25-47 Monocyte % 6.5 % N 1-9 Eosinophil % 2.3 % N 0-6 Basophil % 0.8 % N 0-2 Nucleated Red Blood Cells % 0.2 Urine Drug 07/30/2017 [facility] Amphetamine Ur None Detected None Detect SCR ED & [phone] Screen Pain Clinic Barbiturates Urine Screen None Detected None Detect Benzodiazepine Urine Screen None Detected None Detect Urine Cannabinoids Screen None Detected None Detect Urine Cocaine Screen None Detected None Detect Urine Opiates Screen None Detected None Detect Urine Phencyclidine Screen None Detected None Detect 12 Comp Metabolic Panel 07/30/2017 [facility] Sodium 133 mmol/L N 133- 145 [phone] Potassium 3.7 mmol/L N 3.5-5.0 Chloride 96 mmol/L Low 101-111 Co2 Carbon Dioxide 27 mmol/L N 22-32 Anion Gap 10 mmol/L N 2-11 Glucose 237 mg/dL High 70-100 Blood Urea Nitrogen 14 mg/dL N 6-24 Creatinine 0.70 mg/dL N 0.51-0.95 BUN/Creatinine Ratio 20.0 N 8-20 Calcium 9.3 mg/dL N 8.6-10.3 Total Protein 8.0 g/dL N 6.4-8.9 Albumin 4.0 g/dL N 3.2-5.2 Globulin 4.0 g/dL N 2-4 Albumin/Globulin Ratio 1.0 N 1-3 Total Bilirubin 0.30 mg/dL N 0.2-1.0 Alkaline Phosphatase 90 U/L N 34-104 Alt 10 U/L N 7-52 Ast 14 U/L N 13-39 Egfr Non- 87.5 >60 Egfr 112.6 >60 13 Laboratory test 07/30/2017 [facility] Valproic Acid 60.0 g/mL N 50- 100 finding [phone] (Depakene) Acetaminophen < 15 g/mL 14 Alcohol < 10 mg/dL N <10 Salicylate < 2.50 mg/dL <30 TSH (Thyroid Stim Horm) 2.93 mcIU/mL N 0.34-5.60 Urine Culture And Sensitivities SEE RESULT BELOW 15 Laboratory test 06/30/2017 In House Glucose 172 finding Laboratory test 06/22/2017 [facility] C Reactive 13.88 mg/L High < 5.00 16 finding [phone] Protein Comp Metabolic 06/22/2017 [facility] Sodium 131 mmol/L Low 133-145 Panel [phone] Potassium 4.2 mmol/L N 3.5-5.0 Chloride 96 mmol/L Low 101-111 Co2 Carbon Dioxide 28 mmol/L N 22-32 Anion Gap 7 mmol/L N 2-11 Glucose 373 mg/dL High 70-100 Blood Urea Nitrogen 14 mg/dL N 6-24 Creatinine 0.70 mg/dL N 0.51-0.95 BUN/Creatinine Ratio 20.0 N 8-20 Calcium 8.5 mg/dL Low 8.6-10.3 Total Protein 6.8 g/dL N 6.4-8.9 Albumin 3.5 g/dL N 3.2-5.2 Globulin 3.3 g/dL N 2-4 Albumin/Globulin Ratio 1.1 N 1-3 Total Bilirubin 0.20 mg/dL N 0.2-1.0 Alkaline Phosphatase 89 U/L N 34-104 Alt 10 U/L N 7-52 Ast 9 U/L Low 13-39 Egfr Non- 87.5 >60 Egfr 112.6 >60 17 CBC Auto Diff 06/22/2017 [facility] White Blood Count 5.9 10^3/uL N 3.5-10.8 [phone] Red Blood Count 4.10 10^6/uL N 4.0-5.4 Hemoglobin 12.1 g/dL N 12.0-16.0 Hematocrit 36 % N 35-47 Mean Corpuscular Volume 87 fL N 80-97 Mean Corpuscular Hemoglobin 30 pg N 27-31 Mean Corpuscular HGB Conc 34 g/dL N 31-36 Red Cell Distribution Width 14 % N 10.5-15 Platelet Count 235 10^3/uL N 150-450 Mean Platelet Volume 7 um3 Low 7.4-10.4 Abs Neutrophils 2.9 10^3/uL N 1.5-7.7 Abs Lymphocytes 2.4 10^3/uL N 1.0-4.8 Abs Monocytes 0.5 10^3/uL N 0-0.8 Abs Eosinophils 0.1 10^3/uL N 0-0.6 Abs Basophils 0 10^3/uL N 0-0.2 Abs Nucleated RBC 0 10^3/uL Granulocyte % 48.7 % N 38-83 Lymphocyte % 40.7 % N 25-47 Monocyte % 8.4 % N 1-9 Eosinophil % 1.4 % N 0-6 Basophil % 0.8 % N 0-2 Nucleated Red Blood Cells % 0.1 Laboratory test 06/22/2017 [facility] Lactic Acid 2.7 mmol/L High 0.5 -2.0 18 finding [phone] Urinalysis Profile 06/22/2017 [facility] Urine Color Straw [phone] Urine Appearance Clear Urine Specific [place] 1.023 N 1.010-1.030 Urine pH 7.0 N 5-9 Urine Urobilinogen Negative Negative Urine Ketones Negative Negative Urine Protein Negative Negative Urine Leukocytes Negative Negative Urine Blood 1+ Abnormal Negative Urine Nitrite Negative Negative Urine Bilirubin Negative Negative Urine Glucose 3+(>=500 mg/dL) Abnormal Negative Urine White Blood Cell Trace(0-5/hpf) Absent Urine Red Blood Cell Trace(0-2/hpf) Absent Urine Bacteria Absent Absent Urine Squamous Epithelial Cell Present Abnormal Absent Venous Blood Gas 06/22/2017 [facility] Venous Blood pH 7.39 N 7.33- 7.43 [phone] Venous Pco2 50 mmHg N 41-51 Venous Po2 28 mmHg Low 35-45 Venous O2 Saturation 50.3 % Low 70-80 Venous Blood Base Excess 4.3 High 0-4 19 Venous Bicarbonate Hco3 27.0 mmol/L N 24-28 Laboratory test 06/13/2017 In House Hemoglobin A1c 8.8 finding CBC Auto Diff 06/08/2017 [facility] White Blood Count 6.6 10^3/uL N 3.5-10.8 [phone] Red Blood Count 4.29 10^6/uL N 4.0-5.4 Hemoglobin 12.8 g/dL N 12.0-16.0 Hematocrit 37 % N 35-47 Mean Corpuscular Volume 87 fL N 80-97 Mean Corpuscular Hemoglobin 30 pg N 27-31 Mean Corpuscular HGB Conc 34 g/dL N 31-36 Red Cell Distribution Width 14 % N 10.5-15 Platelet Count 282 10^3/uL N 150-450 Mean Platelet Volume 7 um3 Low 7.4-10.4 Abs Neutrophils 3.3 10^3/uL N 1.5-7.7 Abs Lymphocytes 2.6 10^3/uL N 1.0-4.8 Abs Monocytes 0.5 10^3/uL N 0-0.8 Abs Eosinophils 0.2 10^3/uL N 0-0.6 Abs Basophils 0.1 10^3/uL N 0-0.2 Abs Nucleated RBC 0 10^3/uL Granulocyte % 49.5 % N 38-83 Lymphocyte % 39.3 % N 25-47 Monocyte % 7.1 % N 1-9 Eosinophil % 3.2 % N 0-6 Basophil % 0.9 % N 0-2 Nucleated Red Blood Cells % 0 Urine Drug 06/08/2017 [facility] Amphetamine Ur None Detected None Detect SCR ED & [phone] Screen Pain Clinic Barbiturates Urine Screen None Detected None Detect Benzodiazepine Urine Screen None Detected None Detect Urine Cannabinoids Screen None Detected None Detect Urine Cocaine Screen None Detected None Detect Urine Opiates Screen None Detected None Detect Urine Phencyclidine Screen None Detected None Detect 20 Comp Metabolic Panel 06/08/2017 [facility] Sodium 133 mmol/L N 133- 145 [phone] Potassium 4.0 mmol/L N 3.5-5.0 Chloride 99 mmol/L Low 101-111 Co2 Carbon Dioxide 26 mmol/L N 22-32 Anion Gap 8 mmol/L N 2-11 Glucose 143 mg/dL High 70-100 Blood Urea Nitrogen 15 mg/dL N 6-24 Creatinine 0.63 mg/dL N 0.51-0.95 BUN/Creatinine Ratio 23.8 High 8-20 Calcium 9.0 mg/dL N 8.6-10.3 Total Protein 7.2 g/dL N 6.4-8.9 Albumin 3.6 g/dL N 3.2-5.2 Globulin 3.6 g/dL N 2-4 Albumin/Globulin Ratio 1.0 N 1-3 Total Bilirubin 0.40 mg/dL N 0.2-1.0 Alkaline Phosphatase 96 U/L N 34-104 Alt 10 U/L N 7-52 Ast 11 U/L Low 13-39 Egfr Non- 98.8 >60 Egfr 127.1 >60 21 Laboratory test finding 06/08/2017 [facility] Acetaminophen < 15 g/ mL 22 [phone] Alcohol < 10 mg/dL N <10 Salicylate < 2.50 mg/dL <30 TSH (Thyroid Stim Horm) 2.96 mcIU/mL N 0.34-5.60 Urinalysis Profile 06/08/2017 [facility] Urine Color Yellow [phone] Urine Appearance Cloudy Urine Specific [place] 1.029 N 1.010-1.030 Urine pH 7.0 N 5-9 Urine Urobilinogen Negative Negative Urine Ketones 1+ Abnormal Negative Urine Protein Negative Negative Urine Leukocytes 1+ Abnormal Negative Urine Blood Negative Negative Urine Nitrite Negative Negative Urine Bilirubin Negative Negative Urine Glucose 3+(>=500 mg/dL) Abnormal Negative Urine White Blood Cell 1+(6-10/hpf) Abnormal Absent Urine Red Blood Cell 2+(6-10/hpf) Abnormal Absent Urine Bacteria Absent Absent Urine Squamous Epithelial Cell Present Abnormal Absent Laboratory test 06/08/2017 [facility] Urine Culture And SEE RESULT 23 finding [phone] Sensitivities BELOW CBC Auto Diff 04/18/2017 [facility] White Blood Count 6.8 10^3/uL N 3.5-10 [phone] Red Blood Count 4.46 10^6/uL N 4.0-5.4 Hemoglobin 13.2 g/dL N 12.0-16.0 Hematocrit 39 % N 35-47 Mean Corpuscular Volume 87 fL N 80-97 Mean Corpuscular Hemoglobin 30 pg N 27-31 Mean Corpuscular HGB Conc 34 g/dL N 31-36 Red Cell Distribution Width 15 % N 10.5-15 Platelet Count 240 10^3/uL N 150-450 Mean Platelet Volume 8 um3 N 7.4-10.4 Abs Neutrophils 3.3 10^3/uL N 1.5-7.7 Abs Lymphocytes 2.7 10^3/uL N 1.0-4.8 Abs Monocytes 0.4 10^3/uL N 0-0.8 Abs Eosinophils 0.4 10^3/uL N 0-0.6 Abs Basophils 0 10^3/uL N 0-0.2 Abs Nucleated RBC 0.01 10^3/uL N Granulocyte % 48.0 % N 38-83 Lymphocyte % 39.4 % N 25-47 Monocyte % 6.3 % N 1-9 Eosinophil % 5.6 % N 0-6 Basophil % 0.7 % N 0-2 Nucleated Red Blood Cells % 0.1 N Comp Metabolic Panel 04/18/2017 [facility] Sodium 134 mmol/L N 133- 145 [phone] Potassium 3.8 mmol/L N 3.5-5.0 Chloride 95 mmol/L Low 101-111 Co2 Carbon Dioxide 29 mmol/L N 22-32 Anion Gap 10 mmol/L N 2-11 Glucose 103 mg/dL High 70-100 Blood Urea Nitrogen 22 mg/dL N 6-24 Creatinine 0.70 mg/dL N 0.51-0.95 BUN/Creatinine Ratio 31.4 High 8-20 Calcium 9.7 mg/dL N 8.6-10.3 Total Protein 7.8 g/dL N 6.4-8.9 Albumin 3.8 g/dL N 3.2-5.2 Globulin 4.0 g/dL N 2-4 Albumin/Globulin Ratio 1.0 N 1-3 Total Bilirubin 0.40 mg/dL N 0.2-1.0 Alkaline Phosphatase 82 U/L N 34-104 Alt 10 U/L N 7-52 Ast 10 U/L Low 13-39 Egfr Non- 87.5 N >60 Egfr 112.6 N >60 24 Laboratory test finding 04/18/2017 [facility] Acetaminophen < 15 g/ mL N 25 [phone] Alcohol < 10 mg/dL N <10 Salicylate < 2.50 mg/dL N <30 TSH (Thyroid Stim Horm) 2.66 mcIU/mL N 0.34-5.60 Urinalysis Profile 04/18/2017 [facility] Urine Color Straw N [phone] Urine Appearance Clear N Urine Specific [place] 1.011 N 1.010-1.030 Urine pH 6.0 N 5-9 Urine Urobilinogen Negative N Negative Urine Ketones Trace Abnormal Negative Urine Protein Negative N Negative Urine Leukocytes Negative N Negative Urine Blood Negative N Negative Urine Nitrite Negative N Negative Urine Bilirubin Negative N Negative Urine Glucose 3+(>=500 mg/dL) Abnormal Negative Urine Drug 04/18/2017 [facility] Amphetamine Ur None Detected N None Detect SCR ED & [phone] Screen Pain Clinic Barbiturates Urine Screen None Detected N None Detect Benzodiazepine Urine Screen None Detected N None Detect Urine Cannabinoids Screen None Detected N None Detect Urine Cocaine Screen None Detected N None Detect Urine Opiates Screen None Detected N None Detect Urine Phencyclidine Screen None Detected N None Detect 26 Laboratory test 04/15/2017 [facility] Culture Genital & SEE RESULT 27, 28 finding [phone] Sensitivity BELOW Urinalysis 04/13/2017 [facility] Urine Color Yellow N Profile [phone] Urine Appearance Clear N Urine Specific [place] 1.032 High 1.010-1.030 Urine pH 7.0 N 5-9 Urine Urobilinogen Negative N Negative Urine Ketones Trace Abnormal Negative Urine Protein Negative N Negative Urine Leukocytes Trace Abnormal Negative Urine Blood 1+ Abnormal Negative Urine Nitrite Negative N Negative Urine Bilirubin Negative N Negative Urine Glucose 3+(>=500 mg/dL) Abnormal Negative Urine White Blood Cell Trace(0-5/hpf) N Absent Urine Red Blood Cell Trace(0-2/hpf) N Absent Urine Bacteria Absent N Absent Urine Squamous Epithelial Cell Present Abnormal Absent Laboratory test 04/13/2017 [facility] Urine Culture And SEE RESULT 29 finding [phone] Sensitivities BELOW Laboratory test 03/24/2017 In House Hemoglobin A1c 7.5 finding Laboratory test 12/23/2016 [facility] TSH Receptor Assay <1.00 IU/L N 30, 31 finding [phone] Pthi 12/23/2016 [facility] Calcium (PTH 9.2 mg/dL N 8.6-7 [phone] Intact) 0.3 PTH Intact 5.9 pmol/L N 1.3-9.3 Laboratory test 12/23/2016 In House Hemoglobin A1c 8.1 finding Laboratory test 10/30/2016 [facility] Magnesium 1.8 mg/dL Low 1.9- 2.7 finding [phone] Lipase 39 U/L N 11.0-82.0 C Reactive Protein 12.31 mg/L High < 5.00 32 Troponin-I (TnI) 0.00 ng/mL N <0.04 33 TSH (Thyroid Stim Horm) 6.24 mcIU/mL High 0.34-5.60 Valproic Acid (Depakene) 66.0 g/mL N 50-100 Comp Metabolic Panel 10/30/2016 [facility] Sodium 133 mmol/L N 133- 145 [phone] Potassium 3.8 mmol/L N 3.5-5.0 Chloride 100 mmol/L Low 101-111 Co2 Carbon Dioxide 23 mmol/L N 22-32 Anion Gap 10 mmol/L N 2-11 Glucose 355 mg/dL High 70-100 Blood Urea Nitrogen 15 mg/dL N 6-24 Creatinine 0.70 mg/dL N 0.51-0.95 BUN/Creatinine Ratio 21.4 High 8-20 Calcium 8.2 mg/dL Low 8.6-10.3 Total Protein 6.5 g/dL N 6.4-8.9 Albumin 3.1 g/dL Low 3.2-5.2 Globulin 3.4 g/dL N 2-4 Albumin/Globulin Ratio 0.9 Low 1-3 Total Bilirubin 0.20 mg/dL N 0.2-1.0 Alkaline Phosphatase 71 U/L N 34-104 Alt 10 U/L N 7-52 Ast 9 U/L Low 13-39 Egfr Non- 87.9 N >60 Egfr 113.0 N >60 34 Laboratory test 10/30/2016 [facility] Partial 24.8 seconds Low 26.0- 36.3 finding [phone] Thrombo Time PTT Lactic Acid 5.7 mmol/L High 0.5-2.0 35 Inr/Protime 10/30/2016 [facility] Inr 0.95 N 0.89-1.11 [phone] Urinalysis Profile 10/30/2016 [facility] Urine Color Straw N [phone] Urine Appearance Clear N Urine Specific [place] 1.028 N 1.010-1.030 Urine pH 6.0 N 5-9 Urine Urobilinogen Negative N Negative Urine Ketones Trace Abnormal Negative Urine Protein Negative N Negative Urine Leukocytes Negative N Negative Urine Blood Negative N Negative Urine Nitrite Negative N Negative Urine Bilirubin Negative N Negative Urine Glucose 3+(>=500 mg/dL) Abnormal Negative Laboratory test 10/30/2016 [facility] B-Type Natriuretic 56 pg/mL N 36 finding [phone] Peptide BNP CBC Auto Diff 10/30/2016 [facility] White Blood Count 6.3 10^3/uL N 3.5-10. [phone] Red Blood Count 4.00 10^6/uL N 4.0-5.4 Hemoglobin 11.4 g/dL Low 12.0-16.0 Hematocrit 35 % N 35-47 Mean Corpuscular Volume 88 fL N 80-97 Mean Corpuscular Hemoglobin 29 pg N 27-31 Mean Corpuscular HGB Conc 33 g/dL N 31-36 Red Cell Distribution Width 15 % N 10.5-15 Platelet Count 212 10^3/uL N 150-450 Mean Platelet Volume 7 um3 Low 7.4-10.4 Abs Neutrophils 3.1 10^3/uL N 1.5-7.7 Abs Lymphocytes 2.5 10^3/uL N 1.0-4.8 Abs Monocytes 0.6 10^3/uL N 0-0.8 Abs Eosinophils 0.1 10^3/uL N 0-0.6 Abs Basophils 0 10^3/uL N 0-0.2 Abs Nucleated RBC 0 10^3/uL N Granulocyte % 48.9 % N 38-83 Lymphocyte % 39.7 % N 25-47 Monocyte % 10.0 % High 1-9 Eosinophil % 1.0 % N 0-6 Basophil % 0.4 % N 0-2 Nucleated Red Blood Cells % 0.1 N Laboratory test 10/30/2016 [facility] Lactic Acid 2.8 mmol/L High 0.5 -2.0 37 finding [phone] Basic Metabolic 10/30/2016 [facility] Sodium 140 mmol/L N 133-145 Panel [phone] Chloride 121 mmol/L High 101-111 Glucose 194 mg/dL High 70-100 Blood Urea Nitrogen 7 mg/dL N 6-24 Creatinine 0.29 mg/dL Low 0.51-0.95 BUN/Creatinine Ratio 24.1 High 8-20 Egfr Non- 242.9 N >60 Egfr 312.4 N >60 38 Potassium 2.7 mmol/L Low 3.5-5.0 39 Co2 Carbon Dioxide 14 mmol/L Low 22-32 40 Anion Gap 5 mmol/L N 2-11 Calcium 4.6 mg/dL Low 8.6-10.3 41 Laboratory test 10/30/2016 [facility] Lactic Acid 2.1 mmol/L High 0.5 -2.0 42 finding [phone] Comp Metabolic Panel 10/30/2016 [facility] Sodium 135 mmol/L N 133- 145 [phone] Potassium 4.0 mmol/L N 3.5-5.0 Chloride 106 mmol/L N 101-111 Co2 Carbon Dioxide 22 mmol/L N 22-32 Anion Gap 7 mmol/L N 2-11 Glucose 256 mg/dL High 70-100 Blood Urea Nitrogen 9 mg/dL N 6-24 Creatinine 0.50 mg/dL Low 0.51-0.95 BUN/Creatinine Ratio 18.0 N 8-20 Calcium 7.8 mg/dL Low 8.6-10.3 Total Protein 6.2 g/dL Low 6.4-8.9 Albumin 3.0 g/dL Low 3.2-5.2 Globulin 3.2 g/dL N 2-4 Albumin/Globulin Ratio 0.9 Low 1-3 Total Bilirubin 0.20 mg/dL N 0.2-1.0 Alkaline Phosphatase 66 U/L N 34-104 Alt 8 U/L N 7-52 Ast 9 U/L Low 13-39 Egfr Non- 129.6 N >60 Egfr 166.6 N >60 43 Laboratory test 08/21/2016 In House Hemoglobin A1c 7.3 finding Laboratory test 08/21/2016 [facility] SEE RESULT BELOW 44 finding [phone] Human Papilloma Virus Rna Negative N Negative 45 1 RESULT: RIGHT SIDE OF HEAD,SCALP 2 ADDITIONAL INFORMATION This test was developed and its performance characteristics determined by [facility] in a manner consistent with CLIA requirements. This test has not been cleared or approved by the U.S. Food and Drug Administration. Test Performed by: [facility] - [address] [address] 3 No evidence of antibodies to B. burgdorferi detected. False negative results may occur in recently infected patients (<=2 weeks) due to low or undetectable antibody levels to B. burgdorferi. If recent exposure is suspected, a second sample should be collected and tested in 2-4 weeks. Test Performed by: [facility] - [facility] [address] [place] [address] 4 Low risk: <1.00 Average risk: 1.00-3.00 High risk: >3.00 5 Desirable: <150 Borderline High: 150-199 High: 200-499 Very High: >500 6 Desirable: <200 Borderline High: 200-239 High: >239 7 Low: <40 Desirable: 40-60 High: >60 8 Desirable: <100 Near Optimal: 100-129 Borderline High: 130-159 High: 160-189 Very High: >189 9 Because ethnic data is not always [...] be used for medical purposes only. 12 The urine specimen was tested at the listed cutoffs: Drug class test level (ng/mL) Amphetamines 500 Barbiturates 200 Benzodiazepine metabolites 200 Cocaine metabolites 150 Cannabinoids 50 Opiates 300 Pcp 25 Specimen was received without chain of custody. Results should be used for medical purposes only. 13 Because ethnic data is not always readily [...] 15-29 5 Kidney failure <15 (or dialysis) 14 Therapeutic concentration: <50 ug/mL Toxic concentration: >120 ug/mL 15 SEE RESULT BELOW Name: VELMA HARPER : [address]: Christian Powell MD Acct: [id number] Unit: [id number] AGE: 52 Location: ED Re07/30/17 SEX: F Status: DEP ER SPEC: [id number] MARLENE: 07/30/[address] [facility] [address]: Christian Powell MD REQ: [id number] RECD: 07/30/17 STATUS: SUZANNE VARGAS DR: Davonte Majano MD _ SOURCE: URINE SPDESC: ORDERED: Urine Culture Procedure Result Reported Site Urine Culture Final 08/01/17- 0746 ML No growth of clinically significant organisms * ML - MAIN LAB ([facility]) . END OF REPORT * ML=Testing performed at Main Lab DEPARTMENT OF PATHOLOGY, [address] [place] [address] Cuate Bennett M.D. Director [facility] # [id number] 16 Acute inflammation: >10.00 17 Because ethnic data is not always [...] 5 Kidney failure <15 (or dialysis) 18 Critical Result LACT:2.7 Called to [id number] at: 19:03:15 by:[id number] Read back by:[id number] [facility] Severe Sepsis and Septic Shock Management Bundle Measure requires all lactic acids initially measuring >2.0 mmol/L be repeated. 19 Reference ranges based on room air. 20 The urine specimen was tested at the listed cutoffs: Drug class test level (ng/mL) Amphetamines 500 Barbiturates 200 Benzodiazepine metabolites 200 Cocaine metabolites 150 Cannabinoids 50 Opiates 300 Pcp 25 Specimen was received without chain of custody. Results should be used for medical purposes only. 21 Because ethnic data is not always readily [...] 15-29 5 Kidney failure <15 (or dialysis) 22 Therapeutic concentration: <50 ug/mL Toxic concentration: >120 ug/mL 23 SEE RESULT BELOW Name: VELMA HARPER : [address]: Fidel Prabhakar MD Acct: [id number] Unit: [id number] AGE: 52 Location: ED Re06/08/17 SEX: F Status: DEP ER SPEC: [id number] MARLENE: 06/08/[address]: Fidel Prabhakar MD REQ: [id number] RECD: 06/08/17 STATUS: SUZANNE VARGAS DR: Davonte Majano MD _ SOURCE: URINE SPDESC: ORDERED: Urine Culture Procedure Result Reported Site Urine Culture Final 06/10/17- 1000 ML No growth of clinically significant organisms * ML - MAIN LAB ([facility]) . END OF REPORT * ML=Testing performed at Main Lab DEPARTMENT OF PATHOLOGY, [address] [place] [address] Cuate Bennett M.D. Director [facility] # [id number] 24 Because ethnic data is not always [...] 5 Kidney failure <15 (or dialysis) 25 Therapeutic concentration: <50 ug/mL Toxic concentration: >120 ug/mL 26 The urine specimen was tested at the listed cutoffs: Drug class test level (ng/mL) Amphetamines 500 Barbiturates 200 Benzodiazepine metabolites 200 Cocaine metabolites 150 Cannabinoids 50 Opiates 300 Pcp 25 Specimen was received without chain of custody. Results should be used for medical purposes only. 27 [id number] 28 SEE RESULT BELOW Name: VELMA HARPER : [address]: Ashlyn TORRES Acct: [id number] Unit: [id number] AGE: 52 Location: [facility] Re04/15/17 SEX: F Status: REG REF SPEC: [id number] MARLENE: 04/15/171521 [facility] DR: Ashlyn TORRES REQ: [id number] RECD: 04/15/17 STATUS: COMP _ SOURCE: ALEXI SPDES: ORDERED: Genital Culture COMMENTS: [id number] Procedure Result Reported Site Genital Culture Final 04/17/17- 1111 ML Organism 1 NORMAL CELENA Quantity 2+ * ML - MAIN LAB ([facility]) . END OF REPORT * ML=Testing performed at Main Lab DEPARTMENT OF PATHOLOGY, [address] [place] [address] Cuate Bennett M.D. Director [facility] # [id number] 29 SEE RESULT BELOW Name: VELMA HARPER : [address]: Jesus Alberto Isaac MD Acct: [id number] Unit: [id number] AGE: 52 Location: ED Re04/12/17 SEX: F Status: DEP ER SPEC: [id number] MARLENE: 04/13/[address]: Haritha TORRES REQ: [id number] RECD: 04/13/17 STATUS: SUZANNE VARGAS DR: Jesus Alberto Majano MD _ SOURCE: URINE [facility]: ORDERED: Urine Culture Procedure Result Reported Site Urine Culture Final 04/14/17- 1116 ML Organism 1 STREP GROUP B [place] Count 50-75,000 (Many) CFU/ML Organism 2 NORMAL CELENA [place] Count 1-10,000 (Few) CFU/ML Susceptibility testing of penicillins and other B-lactams approved by FDA for treatment of Streptococcus pyogenes (Group A Strep) and Streptococcus agalactiae (Group B Strep) is not necessary for clinical purposes and need not be done routinely, since as with vancomycin, resistant strains have not been recognized. (CLSI C557-T61;p.66) Positive isolates will be saved for one week. Please call the Microbiology Laboratory if further susceptibility testing is needed. * ML - MAIN LAB ([facility]) . END OF REPORT * ML=Testing performed at Main Lab DEPARTMENT OF PATHOLOGY, [address] [place] [address] Cuate Bennett M.D. Director [facility] # [id number] 30 Labs are complete, will be scanned in. 01/31/17. SL 31 REFERENCE VALUE 0.00 - 1.75 ADDITIONAL INFORMATION At a decision limit of 1.75 IU/L, this assay has 97% sensitivity and 99% specificity for detection of Graves' disease. In healthy individuals and in patients with thyroid disease without diagnosis of Graves' disease, the upper limit of anti-TSHR values are 1.22 IU/L and 1.58 IU/L, respectively (97.5th percentiles). Test Performed by: [address] [address] 32 Acute inflammation: >10.00 33 99th percentile=0.04 ng/mL Troponin results at [facility] and [facility] are not interchangeable. 34 Because ethnic data is not always readily [...] 15-29 5 Kidney failure <15 (or dialysis) 35 Critical Result LACT:5.7 Called to [id number] at: 03:38:26 by:[id number] Read back by:[id number] [facility] Severe Sepsis and Septic Shock Management Bundle Measure requires all lactic acids initially measuring >2.0 mmol/L be repeated. [facility] Severe Sepsis and Septic Shock Management Bundle Measure requires all lactic acids initially measuring >2.0 mmol/L be repeated. 36 >100 to <200 pg/mL: likely compensated congestive heart failure (CHF) 200 to 400 pg/mL: likely moderate CHF >400 pg/mL: likely moderate to severe CHF 37 Critical Result LACT:2.8 Called to [id number] at: 09:10:28 by:[id number] Read back by:[id number] [facility] Severe Sepsis and Septic Shock Management Bundle Measure requires all lactic acids initially measuring >2.0 mmol/L be repeated. 38 Because ethnic data is not always readily [...] 15-29 5 Kidney failure <15 (or dialysis) 39 Critical Result K:2.7 Called to [id number] at: 09:09:19 by:[id number] Read back by:[id number] 40 Critical Result CO2:14 Called to [id number] at: 09:09:19 by:[id number] Read back by:[id number] 41 Critical Result CA:4.6 Called to [id number] at: 09:09:19 by:[id number] Read back by:[id number] 42 Critical Result LACT:2.1 Called to ROCIO Pfeiffer at: 10:23:42 by:[id number] Read back by:ROCIO SUAREZ Severe Sepsis and Septic Shock Management Bundle Measure requires all lactic acids initially measuring >2.0 mmol/L be repeated. 43 Because ethnic data is not always readily [...] 15-29 5 Kidney failure <15 (or dialysis) 44 SEE RESULT BELOW Name: VELMA HARPER : [address]: Davonte Majano MD Acct: [id number] Unit: [id number] AGE: 51 Location: [facility] Re08/21/16 SEX: F Status: REG REF SPEC: [id number] MARLENE: 08/21/[address] [facility] [address]: Davonte Majano MD REQ: [id number] RECD: 08/22/16 STATUS: SOUT _ ORDERED: IMAGE [...] (signature on file) VOLODYMYR Magdaleno (ASCP) 08/23 9860 This Pap test was evaluated with the assistance of the RinglyPrep Test Imaging System. Due to cytologic findings at the machine sander microscope, comprehensive manual rescreening by a Advance Scout may be required. The Pap Smear is [...] performed at Main Lab DEPARTMENT OF PATHOLOGY, [address] [place] [address] Cuate Bennett M.D. Director [facility] # [id number] 45 The high-risk HPV types detected by the assay include: 16, 18, 31, 33, 35, 39, 45, 51, 52, 56, 58, 59, 66, and 68. Procedures Date Code Description Status 12/14/2017 [id number] Mammogram Completed 06/30/2017 67406 Brief Emotional/Behav Assessment W/ Scoring Doc Per Completed Standard Inst 09/10/2016 [id number] Diabetic Foot Exam Completed 06/16/2014 [id number] Colonoscopy Completed Encounters Type Date Location Provider Dx Diagnosis Office Visit 05/12/2018 Main Office Davonte Majano, L40.9 Psoriasis, 2:00p M.D. unspecified E11.40 Type 2 diabetes mellitus with diabetic neuropathy, unsp Office Visit 04/30/2018 1:40p Main Office Ashlyn Smyth, B02.9 [place] without P.A. complications L40.9 Psoriasis, unspecified Office Visit 04/07/2018 1:40p Main Office Ashyln Smyth, E11.40 Type 2 diabetes P.A. 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 mellitus with diabetic neuropathy, unsp E11.65 Type 2 diabetes mellitus with hyperglycemia Z79.84 halfway (current) use of oral hypoglycemic drugs Z91.11 Patient's noncompliance with dietary regimen R45.4 Irritability and anger Office Visit 06/13/2017 9:40a Main Office Ashlyn Smyth, E11.40 Type 2 diabetes P.A. 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 at Main Ilzfxs8204/30/2018 - Ashlyn Smyth, P.ANapoleonB02.9 [place] without aorjlegpowzlfY96.9 Psoriasis, unspecified
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
[2018-05-26 17:45] LABS: EGFR Non-African American 106.2 (>60)
[2018-05-26] MEDS ORDERED: Mouth Piece, Nicotine* 1 EACH CARTRIDGE INH ONE (18:00)
[2018-05-26 20:30] LABS: Urine Appearance Clear; Urine Blood Negative (Negative); Urine Color Straw; Urine Ketones Negative (Negative); Urine Protein Negative (Negative); Urine Urobilinogen Negative (Negative)
--- NOTE | 2018-05-27 05:35 | ED ---
Progress - Progress Note Progress Note: 0534 - The pt was evaluated by mental health and is stable to be discharged with a diagnosis of schizo affective disorder. Course/Dx - Diagnoses Provider Diagnoses: Suicidal ideation, Schizoaffective disorder Discharge - Sign-Out/Discharge Documenting (check all that apply): Patient Departure - d/c - Discharge Plan Condition: Stable Disposition: HOME Referrals: Davonte Majano MD [Primary Care Provider] - - Attestation Statements Document Initiated by Scribe: Yes Documenting Scribe: Fiordaliza Cordova Provider For Whom Abigail is Documenting (Include Credential): Fidel Prabhakar MD. Scribe Attestation: Fiordaliza Scott scribed for Fidel Prabhakar MD. on 05/27/18 at 0535. Status of Scribe Document: Ready
[2018-05-27 06:57] VITALS: BP 109/69
== END 2018-05-27 14:42 | disposition home or self-care (01) ==
LOC: ED 16:58
DX: R45.851 Suicidal ideations (principal); E11.9 Type 2 diabetes mellitus without complications; E03.9 Hypothyroidism, unspecified; Z79.01 Long term (current) use of anticoagulants; F20.9 Schizophrenia, unspecified
CPT/HCPCS: 36415; 80053; 80307; 80320; 80329; 81003; 84443; 85025; 93005; 99285; G0480

== ENCOUNTER 2018-09-09 18:37 | Emergency (ER) | payer MEDICARE, MEDICAID ==
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
[2018-09-09 19:56] LABS: ABS Basophils 0 10^3/ul (0-0.2); ABS Eosinophils 0.1 10^3/ul (0-0.6); ABS Lymphocytes 2.9 10^3/ul (1.0-4.8); ABS Monocytes 0.6 10^3/ul (0-0.8); ABS Neutrophils 3.6 10^3/ul (1.5-7.7); ABS Nucleated RBC 0 10^3/ul; Eosinophil % 1.3 %; Hematocrit 40 % (33-41); Hemoglobin 13.7 g/dL (12.0-16.0); Lymphocyte % 39.4 %; Mean Corpuscular HGB Conc 34 g/dL (31-36); Mean Corpuscular Hemoglobin 31 pg (27-31); Mean Corpuscular Volume 90 fL (80-97); Mean Platelet Volume 7.2 fL (7.4-10.4); Nucleated Red Blood Cells % 0; Platelet Count 282 10^3/uL (150-450); Red Blood Count 4.49 10^6 /uL (3.70-4.87); Red Cell Distribution Width 14 % (10.5-15); White Blood Count 7.3 10^3/uL (3.5-10.8)
[2018-09-09 20:09] LABS: ALT 15 U/L (7-52); AST 14 U/L (13-39); Albumin 3.9 g/dL (3.2-5.2); Albumin/Globulin Ratio 1.1 (1-3); Alkaline Phosphatase 100 U/L (34-104); Anion Gap 12 mmol/L (2-11); BUN/Creatinine Ratio 29.3 (8-20); Blood Urea Nitrogen 22 mg/dL (6-24); CO2 Carbon Dioxide 30 mmol/L (22-32); Calcium 9.5 mg/dL (8.6-10.3); Chloride 95 mmol/L (101-111); EGFR African American 97.4 (>60); EGFR Non-African American 80.5 (>60); Globulin 3.7 g/dL (2-4); Glucose 145 mg/dL (70-100); Potassium 4.1 mmol/L (3.5-5.0); Sodium 137 mmol/L (135-145); Total Protein 7.6 g/dL (6.4-8.9)
[2018-09-09 20:28] LABS: Acetaminophen < 15 mcg/mL; Alcohol < 10 mg/dL (<10); Salicylate < 2.50 mg/dL (<30)
[2018-09-09 21:06] LABS: Urine Appearance Clear; Urine Bilirubin Negative (Negative); Urine Blood Negative (Negative); Urine Color Straw; Urine Glucose 3+(>=500 mg/dL) (Negative); Urine Ketones Negative (Negative); Urine Nitrite Negative (Negative); Urine Protein Negative (Negative); Urine Urobilinogen Negative (Negative)
[2018-09-09 21:30] LABS: Barbiturates Urine Screen None Detected (None Detect); Benzodiazepine Urine Screen None Detected (None Detect); Urine Cannabinoids Screen None Detected (None Detect)
[2018-09-10] MEDS ORDERED: NS 0.9% 1000 ML** 2,000 ML IV ONE (01:32)
[2018-09-10 08:11] VITALS: BP 112/77
--- NOTE | 2018-09-10 08:11 | ED ---
Progress - Progress Note Progress Note: Pt is a signout from Dr. Nathan pending mental health evaluation on 09/10/18 at 0700. The pt reports overdosing with a mixture of medicines, including four 500mg Depakote tablets, but she presently denies SI/HI. She states things are going great, Im getting to go home, and that she is hungry, but otherwise is experiencing no discomfort. The pts sister, Georgette Corona, lives in [place] at [address] [place] [address], where the pt also lives. Georgette Corona will be accepting the pt home, and she will be going home via cab. Her sister will be taking her to the [facility]. She denies dizziness, cp, sob, nausea, vomiting, and abd pain. Vitals in room: 88bpm, 123/80 BP, SaO2 96%. Home Medications Medication Instructions Recorded Confirmed Type Benztropine TAB* [Cogentin TAB*] 0.5 mg PO BID tab 08/05/17 09/09/18 Rx Canagliflozin (NF) [Invokana (NF)] 100 mg PO DAILY tab 08/05/17 09/09/[address] CAP* [Cymbalta CAP*] 30 mg PO DAILY #30 cap 08/05/17 09/09/18 Rx DULoxetine CAP* [Cymbalta CAP*] 60 mg PO DAILY #30 cap. 08/05/17 09/09/18 Rx Mirabegron (NF) [Myrbetriq (NF)] 25 mg PO DAILY tab 08/05/17 09/09/18 Rx Potassium Chlor TAB* [Klor Con ER 10 meq PO DAILY WITH MEAL tab.er 08/05/17 Rx TAB 10 MEQ*] Prazosin CAP* [Minipress CAP*] 1 mg PO BEDTIME cap 08/05/17 09/09/18 Rx QUEtiapine TAB* [Seroquel 300 MG 400 mg PO BEDTIME #30 tab 08/05/17 09/09/18 Rx TAB*] hydrOXYzine PAMOATE CAP* [Vistaril 25 mg PO QID PRN #120 cap 08/05/17 09/09/18 Rx CAP*] Insulin Detemir (NF) [Levemir (NF)] 40 unit SUBCUT DAILY 04/25/18 09/09/18 History Atorvastatin* [Lipitor*] 20 mg PO DAILY 05/26/18 09/09/18 History Cholecalciferol TAB* [Vitamin D 2,000 units PO DAILY 05/26/18 09/09/18 History TAB*] Furosemide TAB* [Lasix TAB*] 20 mg PO QAM 05/26/18 09/09/18 History Ibuprofen TAB* [Motrin TAB* 800 MG] 800 mg PO Q8HR PRN 05/26/18 09/09/18 History [place]-3 Fatty Acids (Nf) [Fish Oil 1,200 mg PO DAILY 05/26/18 09/09/18 History (NF)] Divalproex ER TAB(*) [Depakote ER 1,500 mg PO DAILY 09/09/18 09/09/18 History TAB(*)] Haloperidol TAB* [Haldol TAB*] 5 mg PO BEDTIME 09/09/18 09/09/18 History Haloperidol TAB* [Haldol TAB*] 10 mg PO BEDTIME 09/09/18 09/09/18 History clonazePAM TAB(*) [Klonopin TAB(*)] 0.5 mg PO BID PRN MDD 2 tabs 09/09/18 History Appearance: well-appearing, no pain distress, well-nourished Skin: Warm, color reflects adequate perfusion, dry Head: Normal Head/Face inspection, atraumatic Eyes: Conjunctiva clear ENT: Normal inspection Neck: Supple, no nodes, no JVD Respiratory: Lungs clear, normal breath sounds, no respiratory distress Cardio: RRR, No murmur, pulses normal, brisk capillary refill Abdomen: Soft, nontender Bowel sounds: Present Musculoskeletal: Strength Intact/ROM intact, no calf tenderness, no edema. Psychological: Normal. No SI/HI. Good eye contact. No sign of intoxication. Neuro: Alert, muscle tone normal, no focal deficit. Speech fluent, facial symmetry. - Consult/PCP Time Called: 05:00 Re-Evaluation - Re-Evaluation 1 Re-Evaluation Time: 19:09 Change: Unchanged Comment: Reviewing medication list with patient. Course/Dx - Course Course Of Treatment: Pt is a signout from Dr. Nathan pending mental health evaluation. The pt reports overdosing with a mixture of medicines, including four 500mg Depakote tablets, but she presently denies SI/HI. Per Dr. Jean-Baptiste, pt may be discharged if pt's sister will in fact take pt at home again. Pt states things are going great, Im getting to go home, and that she is hungry , but otherwise is experiencing no discomfort. The pts sister, Georgette Corona, lives in [place] at [address] [place] [address], where the pt also lives. Georgette Corona will be accepting the pt home, and she will be going home via cab. Her sister will be taking her to the [facility]. She denies dizziness, cp, sob, nausea, vomiting, and abd pain. Vitals in room: 88bpm, 123/80 BP, SaO2 96%. Lactic acid prior to d/c is 1.9, valproic acid is 86 (both now WNL). She will be d/c'ed with a dx of overdose and schizoaffective disorder. - Diagnoses Provider Diagnoses: Overdose, Schizoaffective disorder Discharge - Sign-Out/Discharge Documenting (check all that apply): Patient Departure - home , Receiving Sign- Out Receiving patient FROM: [place] [id number] on 09/10/18 Patient Received Moderate/Deep Sedation with Procedure: No - Discharge Plan Condition: Stable Disposition: HOME Patient Education Materials: Schizoaffective Disorder (ED) Referrals: Davonte Majano MD [Primary Care Provider] - Additional Instructions: Per completion of a mental health evaluation, you are cleared for release and do not require inpatient psychiatric hospitalization at this time. Please go to nearest emergency room or call 911 if safety concerns arise or condition worsens. Important Phone Numbers: [facility] [phone] Suicide Prevention and Crisis Services........................ [phone] National Suicide Prevention Lifeline............................ [phone] (2558) [facility]....................... [phone] Alcoholics Anonymous............................................... [phone] [facility].............. [phone] [facility] Police.............................................. [phone] - Billing Disposition and Condition Condition: STABLE Disposition: Home - Attestation Statements Document Initiated by Collinibjose: Yes Documenting Scribe: Fiordaliza Cordova Provider For Whom Abigail is Documenting (Include Credential): Dr. Devika Salazar MD. Scribe Attestation: Fiordaliza Scott scribed for Dr. Devika Salazar MD. on 09/12/18 at 2306. Scribe Documentation Reviewed: Yes Provider Attestation: The documentation as recorded by the Fiordaliza nicole accurately reflects the service I personally performed and the decisions made by , Dr. Devika Salazra MD. Status of Scribe Document: Viewed
== END 2018-09-10 09:58 | disposition home or self-care (01) ==
LOC: ED 18:37
DX: T42.6X2A Poisoning by other antiepileptic and sedative-hypnotic drugs, intentional self-harm, initial encounter (principal); Y92.9 Unspecified place or not applicable; F20.9 Schizophrenia, unspecified; E11.9 Type 2 diabetes mellitus without complications; Z79.4 Long term (current) use of insulin; Z86.711 Personal history of pulmonary embolism; Z79.01 Long term (current) use of anticoagulants; F41.9 Anxiety disorder, unspecified; F32.9 Major depressive disorder, single episode, unspecified; Z95.810 Presence of automatic (implantable) cardiac defibrillator; Z88.8 Allergy status to other drugs, medicaments and biological substances
CPT/HCPCS: 36415; 80053; 80164; 80307; 80320; 80329; 81003; 82140; 83605; 85025; 93005; 96360; 99284; G0480

== ENCOUNTER 2018-11-10 21:18 | Inpatient (IN) | payer MEDICARE, MEDICAID ==
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
[2018-11-10 22:39] LABS: Urine Appearance Cloudy; Urine Bacteria Absent (Absent); Urine Bilirubin Negative (Negative); Urine Blood Negative (Negative); Urine Color Straw; Urine Glucose 3+(>=500 mg/dL) (Negative); Urine Ketones Negative (Negative); Urine Nitrite Negative (Negative); Urine Protein Negative (Negative); Urine Red Blood Cell Trace(0-2/hpf) (Absent); Urine Specific Gravity 1.011 (1.010-1.030); Urine Squamous Epithelial Cell Present (Absent); Urine Urobilinogen Negative (Negative); Urine White Blood Cell 3+(>20/hpf) (Absent)
[2018-11-10 22:47] LABS: ABS Eosinophils 0.1 10^3/ul (0-0.6); ABS Lymphocytes 2.4 10^3/ul (1.0-4.8); ABS Monocytes 0.6 10^3/ul (0-0.8); ABS Neutrophils 3.2 10^3/ul (1.5-7.7); Eosinophil % 1.7 %; Hematocrit 40 % (35-47); Hemoglobin 13.6 g/dL (12.0-16.0); Lymphocyte % 38.6 %; Mean Corpuscular HGB Conc 34 g/dL (31-36); Mean Corpuscular Hemoglobin 30 pg (27-31); Mean Corpuscular Volume 90 fL (80-97); Mean Platelet Volume 7.4 fL (7.4-10.4); Nucleated Red Blood Cells % 0.2; Platelet Count 234 10^3/uL (150-450); Red Blood Count 4.45 10^6 /uL (3.70-4.87); Red Cell Distribution Width 14 % (10.5-15); White Blood Count 6.3 10^3/uL (3.5-10.8)
[2018-11-10 22:54] LABS: Urine Benzodiazepine Screen None Detected (None Detect); Urine Opiates Screen None Detected (None Detect)
[2018-11-10 23:04] LABS: ALT 12 U/L (7-52); Albumin 3.7 g/dL (3.2-5.2); Alkaline Phosphatase 110 U/L (34-104); BUN/Creatinine Ratio 28.4 (8-20); Blood Urea Nitrogen 21 mg/dL (6-24); CO2 Carbon Dioxide 28 mmol/L (22-32); Calcium 9.3 mg/dL (8.6-10.3); Chloride 97 mmol/L (101-111); EGFR Non-African American 81.8 (>60); Globulin 3.7 g/dL (2-4); Glucose 211 mg/dL (70-100); Sodium 136 mmol/L (135-145); Total Protein 7.4 g/dL (6.4-8.9)
[2018-11-10 23:09] LABS: Acetaminophen < 15 mcg/mL; Alcohol < 10 mg/dL (<10); Salicylate < 2.50 mg/dL (<30)
[2018-11-10 23:25] LABS: TSH (Thyroid Stimulating Horm) 3.77 mcIU/mL (0.34-5.60)
[2018-11-10 23:39] LABS: AST 13 U/L (13-39); Anion Gap 11 mmol/L (2-11)
[2018-11-11] MEDS: NS 0.9% 1000 ML** 3,000 ML IV ONE ×2 (03:26→05:08)
[2018-11-11 06:27] LABS: Calcium 7.8 mg/dL (8.6-10.3); EGFR Non-African American 81.8 (>60); Potassium 4.1 mmol/L (3.5-5.0)
[2018-11-11] MEDS ORDERED: Al Hydrox/Mg Hydrox/Simet LIQ* 30 ML UDC PO PRN (09:00)
[2018-11-11] MEDS ORDERED: Acetaminophen TAB* 325 MG PO PRN (09:00)
[2018-11-11] MEDS ORDERED: Ibuprofen TAB* 800 MG PO PRN (09:02)
[2018-11-11] MEDS ORDERED: Fluconazole 150 MG TAB PO ONE (14:56)
--- NOTE | 2018-11-11 16:25 | PN ---
BSU: Group Therapy Note - Service Type Service Type: [id number] Group Psychotherapy - Medication Education Group: Patient was attentive and participatory in group, and remained in good behavioral control. Patient expressed positive insights regarding relevant treatment interventions. Patient stated understanding of material discussed and had appropriate questions.
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
[2018-11-11] MEDS: Benztropine TAB* 1 MG PO SCH (20:51)
[2018-11-11] MEDS: Haloperidol TAB* 5 MG PO SCH (20:53)
[2018-11-11] MEDS: Haloperidol TAB* 10 MG PO SCH (20:53)
[2018-11-11] MEDS: Nitrofurantoin Macrocrystals* 50 MG CAP PO SCH (20:56)
[2018-11-11] MEDS: Prazosin CAP* 1 MG PO SCH (20:56)
[2018-11-11] MEDS: QUEtiapine TAB* 100 MG PO SCH (20:57)
[2018-11-11] MEDS ORDERED: metFORMIN* 500 MG TAB PO SCH (21:00)
[2018-11-12] MEDS: Divalproex ER TAB(*) 500 MG PO SCH (10:19)
[2018-11-12] MEDS: DULoxetine DR CAP* 30 MG CAP.DR PO SCH (10:20)
[2018-11-12] MEDS: Nitrofurantoin Macrocrystals* 50 MG CAP PO SCH ×2 (10:20→22:27)
[2018-11-12] MEDS: DULoxetine DR CAP* 60 MG CAP.DR PO SCH (10:20)
[2018-11-12] MEDS: Atorvastatin* 20 MG TAB PO SCH (10:20)
[2018-11-12] MEDS: Cholecalciferol TAB* 1000 UNITS PO SCH (10:20)
[2018-11-12] MEDS: Benztropine TAB* 1 MG PO SCH ×2 (10:21→20:16)
[2018-11-12] MEDS: Furosemide TAB* 20 MG PO SCH (10:21)
[2018-11-12] MEDS: Insulin GLARGINE(*) 1 UNITS UNIT SUBCUT SCH (10:22)
--- NOTE | 2018-11-12 10:35 | PN ---
Subjective - Subjective Date of Service: 11/12/18 Service Type: 33838 Hosp care 25 min moderate complexity Subjective: Patient reports "great" mood. She is participating in groups and is social with peers. She states "I want to go home" and that she and her sister discussed keeping her medications upstairs. She states she wants to be fully recovered so that she "doesn't have to come back here." She reports improvement in painful urination and vaginal itching. Lactic acid level of 2.4 today, indicative of trending down. Objective - General Observations Appearance: Well Groomed Stature: Overweight Posture: WNL Eye Contact: Average Behavior/Activity: WNL - Interaction Observations Attitude Towards Examiner: Cooperative Stated Mood: Euthymic Affect: Bright Speech Pattern/Tone: Clear, Appropriate, Normal Volume Thought Process: Coherent Perception: WNL Thought Content: WNL Hallucination Type: Denies Delusion Type: Denies - Cognitive Function Orientation: A&O x 4 Level of Consciousness: Alert Cognition: WNL - patient baseline Estimated Intelligence: MR Range Insight: WNL Judgment Within Normal Limits: Yes - Medication Compliance Cooperative with Inpatient Medication Regimen: Yes - Group Participation Participates in Group Activities: Yes Assessment - Assessment Merits Inpatient Hospitalization: For Immediate Safety, For Stabilization Inpatient DSM-V Dx: F25.0 Clinical Impression: 53yo wf with intellectual disability and history of schizoaffective d/o. She has been a client of [facility] but was evicted due to aggressive behaviors. She is currently residing with her sister while they await more permanent housing options. This is complicated as her IQ is too high for OPWDD services, but she functions at a disabled level, so she is difficult to place. The patient appears to have a UTI and candidiasis, which may also be leading to her recent exacerbation. Plan - Plan Treatment Plan: Name: RUSS MUIR Birthdate: 1965 [id number] continue acute intensive psychiatric treatment. may decrease to q30min and allow staff pass. continue current medications obtain lactic acid level today, fasting lipid panel and hgba1c in am. discharge planning to include family and outpatient providers Continued Medication Management: Continue Outpt Medication Medications: Current Medications Acetaminophen (Tylenol Tab*) 650 mg PO Q4H PRN PRN Reason: for pain; or Temp >101 F Al Hydrox/Mg Hydrox/Simethicone (Maalox Plus*) 30 ml PO Q4H PRN PRN Reason: INDIGESTION Atorvastatin Calcium (Lipitor*) 20 mg PO DAILY PENDING SALE TO [facility] Last Admin: 11/12/18 10:20 Dose: 20 mg Benztropine Mesylate (Cogentin Tab*) 0.5 mg PO BID PENDING SALE TO [facility] Last Admin: 11/12/18 10:21 Dose: 0.5 mg Cholecalciferol (Vitamin D Tab*) 2,000 units PO DAILY [facility] Last Admin: 11/12/18 10:20 Dose: 2,000 units Divalproex Sodium (Depakote Er Tab(*)) 1,500 mg PO DAILY PENDING SALE TO [facility] Last Admin: 11/12/18 10:19 Dose: 1,500 mg Duloxetine HCl (Cymbalta Cap*) 30 mg PO DAILY PENDING SALE TO [facility] Last Admin: 11/12/18 10:20 Dose: 30 mg Duloxetine HCl (Cymbalta Cap*) 60 mg PO DAILY PENDING SALE TO [facility] Last Admin: 11/12/18 10:20 Dose: 60 mg Furosemide (Lasix Tab*) 20 mg PO QAM PENDING SALE TO [facility] Last Admin: 11/12/18 10:21 Dose: 20 mg Haloperidol (Haldol Tab*) 5 mg PO BEDTIME PENDING SALE TO [facility] Last Admin: 11/11/18 20:53 Dose: 5 mg Haloperidol (Haldol Tab*) 10 mg PO BEDTIME PENDING SALE TO [facility] Last Admin: 11/11/18 20:53 Dose: 10 mg Ibuprofen (Motrin Tab*) 800 mg PO Q8HR PRN PRN Reason: PAIN Insulin Glargine (Lantus(*)) 32 units SUBCUT DAILY PENDING SALE TO [facility] Last Admin: 11/12/18 10:22 Dose: 32 units Mirabegron (Myrbetriq (Nf)) 25 mg PO DAILY PENDING SALE TO [facility] Nitrofurantoin Macrocrystals (Macrodantin*) 50 mg PO BID PENDING SALE TO [facility] Last Admin: 11/12/18 10:20 Dose: 50 mg Prazosin HCl (Minipress Cap*) 1 mg PO BEDTIME PENDING SALE TO [facility] Last Admin: 11/11/18 20:56 Dose: 1 mg Quetiapine Fumarate (Seroquel Tab*) 400 mg PO BEDTIME PENDING SALE TO [facility] Last Admin: 11/11/18 20:57 Dose: 400 mg - Discharge Plan Discharge Plan: Inpatient Hospitalization Outpatient Program: [facility]
[2018-11-12] MEDS: PTO: Mirabegron (NF) 25 MG TAB PO SCH (12:45)
[2018-11-12] MEDS: QUEtiapine TAB* 100 MG PO SCH (20:15)
[2018-11-12] MEDS: Prazosin CAP* 1 MG PO SCH (20:16)
[2018-11-12] MEDS: Haloperidol TAB* 5 MG PO SCH (20:16)
[2018-11-12] MEDS: Haloperidol TAB* 10 MG PO SCH (22:26)
[2018-11-13] MEDS: Benztropine TAB* 1 MG PO SCH ×2 (09:13→20:31)
[2018-11-13] MEDS: DULoxetine DR CAP* 60 MG CAP.DR PO SCH (09:13)
[2018-11-13] MEDS: Atorvastatin* 20 MG TAB PO SCH (09:13)
[2018-11-13] MEDS: Nitrofurantoin Macrocrystals* 50 MG CAP PO SCH ×2 (09:14→20:30)
[2018-11-13] MEDS: Cholecalciferol TAB* 1000 UNITS PO SCH (09:15)
[2018-11-13] MEDS: DULoxetine DR CAP* 30 MG CAP.DR PO SCH (09:15)
[2018-11-13] MEDS: Divalproex ER TAB(*) 500 MG PO SCH (09:15)
[2018-11-13] MEDS: Furosemide TAB* 20 MG PO SCH (09:15)
[2018-11-13] MEDS: Insulin GLARGINE(*) 1 UNITS UNIT SUBCUT SCH (09:17)
--- NOTE | 2018-11-13 10:45 | PN ---
Subjective - Subjective Date of Service: 11/13/18 Service Type: 12333 Hosp care 15 min low complexity Subjective: Patient is euthymic with bright affect upon approach. She states she is attending groups and that they are helpful. She denies AH or VH. She denies SI. She states her sister visited last night and that Georgette is available to pick her up whenever the team decides upon discharge. Patient advocates for discharge today. Patient is encouraged to continue attending groups and practice distress tolerance while team coordinates with family. Objective - General Observations Appearance: Neat Stature: Overweight Posture: WNL Eye Contact: Average Behavior/Activity: WNL - Interaction Observations Attitude Towards Examiner: Cooperative, Anxious Stated Mood: Dysphoric Affect: Flat Speech Pattern/Tone: Clear, Appropriate, Normal Volume Thought Process: Coherent, Goal Directed Perception: WNL Thought Content: WNL Hallucination Type: Denies Delusion Type: Denies - Cognitive Function Orientation: A&O x 4 Level of Consciousness: Alert Cognition: Impaired Cognition Estimated Intelligence: MR Range Insight: WNL Judgment Within Normal Limits: Yes Ability to Make Reasonable Decisions: Mildly Impaired - Medication Compliance Cooperative with Inpatient Medication Regimen: Yes - Group Participation Participates in Group Activities: Yes Assessment - Assessment Merits Inpatient Hospitalization: For Immediate Safety, For Stabilization, For Discharge Planning Inpatient DSM-V Dx: F25.0 Clinical Impression: 53yo wf with intellectual disability and history of schizoaffective d/o. She has been a client of [facility] [employer] but was evicted due to aggressive behaviors. She is currently residing with her sister while they await more permanent housing options. This is complicated as her IQ is too high for OPWDD services, but she functions at a disabled level, so she is difficult to place. The patient appears to have a UTI and candidiasis, which may also be leading to her recent exacerbation. Plan - Plan Treatment Plan: Name: RUSS MUIR Birthdate: 1965 [id number] continue acute intensive psychiatric treatment. may decrease to q30min and allow staff pass. continue current medications obtain fasting lipid panel and hgba1c in am. discharge planning to include family and outpatient providers Continued Medication Management: Continue Outpt Medication Medications: Current Medications Acetaminophen (Tylenol Tab*) 650 mg PO Q4H PRN PRN Reason: for pain; or Temp >101 F Al Hydrox/Mg Hydrox/Simethicone (Maalox Plus*) 30 ml PO Q4H PRN PRN Reason: INDIGESTION Atorvastatin Calcium (Lipitor*) 20 mg PO DAILY [facility] Last Admin: 11/13/18 09:13 Dose: 20 mg Benztropine Mesylate (Cogentin Tab*) 0.5 mg PO BID [facility] Last Admin: 11/13/18 09:13 Dose: 0.5 mg Cholecalciferol (Vitamin D Tab*) 2,000 units PO DAILY [facility] Last Admin: 11/13/18 09:15 Dose: 2,000 units Divalproex Sodium (Depakote Er Tab(*)) 1,500 mg PO DAILY [facility] Last Admin: 11/13/18 09:15 Dose: 1,500 mg Duloxetine HCl (Cymbalta Cap*) 30 mg PO DAILY [facility] Last Admin: 11/13/18 09:15 Dose: 30 mg Duloxetine HCl (Cymbalta Cap*) 60 mg PO DAILY [facility] Last Admin: 11/13/18 09:13 Dose: 60 mg Furosemide (Lasix Tab*) 20 mg PO QAM [facility] Last Admin: 11/13/18 09:15 Dose: 20 mg Haloperidol (Haldol Tab*) 5 mg PO BEDTIME [facility] Last Admin: 11/12/18 20:16 Dose: 5 mg Haloperidol (Haldol Tab*) 10 mg PO BEDTIME [facility] Last Admin: 11/12/18 22:26 Dose: 10 mg Ibuprofen (Motrin Tab*) 800 mg PO Q8HR PRN PRN Reason: PAIN Insulin Glargine (Lantus(*)) 32 units SUBCUT DAILY [facility] Last Admin: 11/13/18 09:17 Dose: 32 units Mirabegron (Myrbetriq (Nf)) 25 mg PO DAILY [facility] Last Admin: 11/12/18 12:45 Dose: Not Given Nitrofurantoin Macrocrystals (Macrodantin*) 50 mg PO BID [facility] Last Admin: 11/13/18 09:14 Dose: 50 mg Prazosin HCl (Minipress Cap*) 1 mg PO BEDTIME [facility] Last Admin: 11/12/18 20:16 Dose: 1 mg Quetiapine Fumarate (Seroquel Tab*) 400 mg PO BEDTIME [facility] Last Admin: 11/12/18 20:15 Dose: 400 mg - Discharge Plan Discharge Plan: Inpatient Hospitalization
[2018-11-13] MEDS ORDERED: hydrOXYzine HCL TAB* 25 MG PO PRN (10:49)
[2018-11-13] MEDS: PTO: Mirabegron (NF) 25 MG TAB PO SCH (18:53)
[2018-11-13] MEDS: QUEtiapine TAB* 100 MG PO SCH (20:31)
[2018-11-13] MEDS: Haloperidol TAB* 10 MG PO SCH (20:31)
[2018-11-13] MEDS: Prazosin CAP* 1 MG PO SCH (20:32)
[2018-11-13] MEDS: Haloperidol TAB* 5 MG PO SCH (20:32)
[2018-11-14] MEDS: Divalproex ER TAB(*) 500 MG PO SCH (08:27)
[2018-11-14] MEDS: Benztropine TAB* 1 MG PO SCH ×2 (08:28→21:18)
[2018-11-14] MEDS: Nitrofurantoin Macrocrystals* 50 MG CAP PO SCH ×2 (08:28→21:17)
[2018-11-14] MEDS: DULoxetine DR CAP* 30 MG CAP.DR PO SCH (08:28)
[2018-11-14] MEDS: Atorvastatin* 20 MG TAB PO SCH (08:28)
[2018-11-14] MEDS: Furosemide TAB* 20 MG PO SCH (08:28)
[2018-11-14] MEDS: Cholecalciferol TAB* 1000 UNITS PO SCH (08:28)
[2018-11-14] MEDS: DULoxetine DR CAP* 60 MG CAP.DR PO SCH (08:28)
[2018-11-14] MEDS: Insulin GLARGINE(*) 1 UNITS UNIT SUBCUT SCH (08:34)
[2018-11-14] MEDS: PTO: Mirabegron (NF) 25 MG TAB PO SCH (08:44)
[2018-11-14] MEDS: QUEtiapine TAB* 100 MG PO SCH (21:13)
[2018-11-14] MEDS: Prazosin CAP* 1 MG PO SCH (21:17)
[2018-11-14] MEDS: Haloperidol TAB* 5 MG PO SCH (21:18)
[2018-11-14] MEDS: Haloperidol TAB* 10 MG PO SCH (21:18)
[2018-11-15] MEDS: Divalproex ER TAB(*) 500 MG PO SCH (08:30)
[2018-11-15] MEDS: Benztropine TAB* 1 MG PO SCH ×2 (08:31→20:41)
[2018-11-15] MEDS: Furosemide TAB* 20 MG PO SCH (08:31)
[2018-11-15] MEDS: Atorvastatin* 20 MG TAB PO SCH (08:31)
[2018-11-15] MEDS: DULoxetine DR CAP* 60 MG CAP.DR PO SCH (08:31)
[2018-11-15] MEDS: Cholecalciferol TAB* 1000 UNITS PO SCH (08:31)
[2018-11-15] MEDS: DULoxetine DR CAP* 30 MG CAP.DR PO SCH (08:31)
[2018-11-15] MEDS: Nitrofurantoin Macrocrystals* 50 MG CAP PO SCH ×2 (08:31→20:37)
[2018-11-15] MEDS: Insulin GLARGINE(*) 1 UNITS UNIT SUBCUT SCH (08:36)
[2018-11-15] MEDS: PTO: Mirabegron (NF) 25 MG TAB PO SCH (08:44)
--- NOTE | 2018-11-15 17:36 | PN ---
Subjective - Subjective Date of Service: 11/15/18 Service Type: 98818 Hosp care 15 min low complexity Subjective: Kaylee is happy on the unit although reports that she was hearing a man's voice telling her to through away all her books which she doesn't want to. She isn't bothered by the voice at all. Denies SI or HI. Objective - General Observations Appearance: Well Groomed Appears Stated Age: Yes Stature: WNL Posture: WNL Eye Contact: Average Behavior/Activity: WNL - Interaction Observations Attitude Towards Examiner: Cooperative Stated Mood: Elevated Affect: Bright Speech Pattern/Tone: Clear, Appropriate Thought Process: Coherent Perception: WNL Thought Content: WNL Hallucination Type: Auditory, Command Delusion Type: None - Cognitive Function Orientation: A&O x 4 Level of Consciousness: Awake, Alert, Appropriate Assessment - Assessment Merits Inpatient Hospitalization: Consolidate Improvements, Pending Safe DC Plan Inpatient DSM-V Dx: F25.0 Clinical Impression: 53yo wf with intellectual disability and history of schizoaffective d/o. She has been a client of [facility] [employer] but was evicted due to aggressive behaviors. She is currently residing with her sister while they await more permanent housing options. This is complicated as her IQ is too high for OPWDD services, but she functions at a disabled level, so she is difficult to place. The patient appears to have a UTI and candidiasis, which may also be leading to her recent exacerbation. Plan - Plan Treatment Plan: Name: RUSS MUIR Birthdate: 1965 [id number] continue acute intensive psychiatric treatment. may decrease to q30min and allow staff pass. continue current medications obtain fasting lipid panel and hgba1c in am. discharge planning to include family and outpatient providers Continued Medication Management: Continue Outpt Medication Medications: Current Medications Acetaminophen (Tylenol Tab*) 650 mg PO Q4H PRN PRN Reason: for pain; or Temp >101 F Al Hydrox/Mg Hydrox/Simethicone (Maalox Plus*) 30 ml PO Q4H PRN PRN Reason: INDIGESTION Last Admin: 11/14/18 14:28 Dose: 30 ml Atorvastatin Calcium (Lipitor*) 20 mg PO DAILY [facility] Last Admin: 11/15/18 08:31 Dose: 20 mg Benztropine Mesylate (Cogentin Tab*) 0.5 mg PO BID [facility] Last Admin: 11/15/18 08:31 Dose: 0.5 mg Cholecalciferol (Vitamin D Tab*) 2,000 units PO DAILY [facility] Last Admin: 11/15/18 08:31 Dose: 2,000 units Divalproex Sodium (Depakote Er Tab(*)) 1,500 mg PO DAILY [facility] Last Admin: 11/15/18 08:30 Dose: 1,500 mg Duloxetine HCl (Cymbalta Cap*) 30 mg PO DAILY [facility] Last Admin: 11/15/18 08:31 Dose: 30 mg Duloxetine HCl (Cymbalta Cap*) 60 mg PO DAILY [facility] Last Admin: 11/15/18 08:31 Dose: 60 mg Furosemide (Lasix Tab*) 20 mg PO QAM [facility] Last Admin: 11/15/18 08:31 Dose: 20 mg Haloperidol (Haldol Tab*) 5 mg PO BEDTIME [facility] Last Admin: 11/14/18 21:18 Dose: 5 mg Haloperidol (Haldol Tab*) 10 mg PO BEDTIME [facility] Last Admin: 11/14/18 21:18 Dose: 10 mg Hydroxyzine HCl (Atarax Tab*) 25 mg PO Q4H PRN PRN Reason: ANXIETY Ibuprofen (Motrin Tab*) 800 mg PO Q8HR PRN PRN Reason: PAIN Insulin Glargine (Lantus(*)) 32 units SUBCUT DAILY [facility] Last Admin: 11/15/18 08:36 Dose: 32 units Mirabegron (Myrbetriq (Nf)) 25 mg PO DAILY [facility] Last Admin: 11/15/18 08:44 Dose: Not Given Nitrofurantoin Macrocrystals (Macrodantin*) 50 mg PO BID [facility] Last Admin: 11/15/18 08:31 Dose: 50 mg Prazosin HCl (Minipress Cap*) 1 mg PO BEDTIME [facility] Last Admin: 11/14/18 21:17 Dose: 1 mg Quetiapine Fumarate (Seroquel Tab*) 400 mg PO BEDTIME [facility] Last Admin: 11/14/18 21:13 Dose: 400 mg - Discharge Plan Discharge Plan: Outpatient Follow Up Outpatient Program: [facility]
[2018-11-15] MEDS: Prazosin CAP* 1 MG PO SCH (20:37)
[2018-11-15] MEDS: QUEtiapine TAB* 100 MG PO SCH (20:38)
[2018-11-15] MEDS: Haloperidol TAB* 10 MG PO SCH (20:40)
[2018-11-15] MEDS: Haloperidol TAB* 5 MG PO SCH (20:41)
[2018-11-16 08:57] VITALS: BP 112/75
[2018-11-16] MEDS: Benztropine TAB* 1 MG PO SCH (09:03)
[2018-11-16] MEDS: Divalproex ER TAB(*) 500 MG PO SCH (09:03)
[2018-11-16] MEDS: DULoxetine DR CAP* 60 MG CAP.DR PO SCH (09:05)
[2018-11-16] MEDS: DULoxetine DR CAP* 30 MG CAP.DR PO SCH (09:05)
[2018-11-16] MEDS: Cholecalciferol TAB* 1000 UNITS PO SCH (09:05)
[2018-11-16] MEDS: Atorvastatin* 20 MG TAB PO SCH (09:05)
[2018-11-16] MEDS: Nitrofurantoin Macrocrystals* 50 MG CAP PO SCH (09:06)
[2018-11-16] MEDS: Insulin GLARGINE(*) 1 UNITS UNIT SUBCUT SCH (09:06)
[2018-11-16] MEDS: Furosemide TAB* 20 MG PO SCH (09:06)
[2018-11-16] MEDS: PTO: Mirabegron (NF) 25 MG TAB PO SCH (09:06)
--- NOTE | 2018-11-16 12:59 | PN ---
BSU: Group Therapy Note - Service Type Service Type: 72120 Group Psychotherapy - Cognitive Behavioral Group Therapy ( CBT):Patient was attentive and participatory in CBT programming this morning, and remained in good behavioral control. Patient expressed positive insights regarding relevant treatment interventions and goals.
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
== END 2018-11-16 12:58 | disposition home or self-care (01) | DRG 885 ==
LOC: ED 21:18 → UNDOADMIN 11-11 08:06 → BSU 11-11 08:06
PROVIDERS: ADMIT Psychiatry & Neurology Psychiatry; ATTEND Psychiatry & Neurology Psychiatry
DX: F25.0 Schizoaffective disorder, bipolar type (principal); N39.0 Urinary tract infection, site not specified; B37.89 Other sites of candidiasis; Z68.41 Body mass index [BMI] 40.0-44.9, adult; B96.1 Klebsiella pneumoniae [K. pneumoniae] as the cause of diseases classified elsewhere; F79 Unspecified intellectual disabilities; I50.9 Heart failure, unspecified; L40.9 Psoriasis, unspecified; E11.9 Type 2 diabetes mellitus without complications; E66.9 Obesity, unspecified; E78.00 Pure hypercholesterolemia, unspecified; T38.3X1A Poisoning by insulin and oral hypoglycemic [antidiabetic] drugs, accidental (unintentional), initial encounter; T50.1X1A Poisoning by loop [high-ceiling] diuretics, accidental (unintentional), initial encounter; T46.6X1A Poisoning by antihyperlipidemic and antiarteriosclerotic drugs, accidental (unintentional), initial encounter; T43.591A Poisoning by other antipsychotics and neuroleptics, accidental (unintentional), initial encounter; T44.6X1A Poisoning by alpha-adrenoreceptor antagonists, accidental (unintentional), initial encounter; T43.211A Poisoning by selective serotonin and norepinephrine reuptake inhibitors, accidental (unintentional), initial encounter; T43.4X1A Poisoning by butyrophenone and thiothixene neuroleptics, accidental (unintentional), initial encounter; T44.3X1A Poisoning by other parasympatholytics [anticholinergics and antimuscarinics] and spasmolytics, accidental (unintentional), initial encounter; X58.XXXA Exposure to other specified factors, initial encounter; Z62.810 Personal history of physical and sexual abuse in childhood; Y92.009 Unspecified place in unspecified non-institutional (private) residence as the place of occurrence of the external cause; Z95.0 Presence of cardiac pacemaker; Z79.84 Long term (current) use of oral hypoglycemic drugs; Z79.4 Long term (current) use of insulin; Z79.899 Other long term (current) drug therapy; Z88.8 Allergy status to other drugs, medicaments and biological substances; Z81.1 Family history of alcohol abuse and dependence
CPT/HCPCS: 36415; 80048; 80053; 80061; 80164; 80307; 80320; 80329; 81003; 81015; 83036; 83605; 84443; 85025; 87077; 87086; 87186; 90853; 93005; 99222; 99231; 99232; 99238; 99284; A9270-GY; G0480

== ENCOUNTER 2019-06-01 20:54 | Emergency (ER) | payer MEDICARE, MEDICAID ==
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
[2019-06-01 21:30] LABS: Urine Appearance Clear; Urine Bilirubin Negative (Negative); Urine Blood 1+ (Negative); Urine Color Straw; Urine Glucose 3+(>=500 mg/dL) (Negative); Urine Ketones Trace (Negative); Urine Nitrite Negative (Negative); Urine Protein Negative (Negative); Urine Specific Gravity 1.017 (1.010-1.030); Urine Urobilinogen Negative (Negative)
[2019-06-01 21:31] LABS: Urine Bacteria Absent (Absent); Urine Red Blood Cell Trace(0-2/hpf) (Absent); Urine White Blood Cell 1+(6-10/hpf) (Absent)
[2019-06-01 21:38] LABS: ABS Basophils 0.1 10^3/ul (0-0.2); ABS Eosinophils 0.1 10^3/ul (0-0.6); ABS Lymphocytes 2.8 10^3/ul (1.0-4.8); ABS Monocytes 0.6 10^3/ul (0-0.8); ABS Neutrophils 3.6 10^3/ul (1.5-7.7); Eosinophil % 1.2 %; Hematocrit 38 % (35-47); Hemoglobin 13.2 g/dL (12.0-16.0); Lymphocyte % 39.3 %; Mean Corpuscular HGB Conc 35 g/dL (31-36); Mean Corpuscular Hemoglobin 31 pg (27-31); Mean Corpuscular Volume 90 fL (80-97); Mean Platelet Volume 6.9 fL (7.4-10.4); Nucleated Red Blood Cells % 0.2; Platelet Count 244 10^3/uL (150-450); Red Blood Count 4.21 10^6 /uL (3.70-4.87); Red Cell Distribution Width 14 % (10-15); White Blood Count 7.2 10^3/uL (3.5-10.8)
[2019-06-01 21:47] LABS: Urine Benzodiazepine Screen None Detected (None Detect); Urine Opiates Screen None Detected (None Detect)
[2019-06-01 21:55] LABS: ALT 12 U/L (7-52); AST 14 U/L (13-39); Albumin 3.6 g/dL (3.2-5.2); Albumin/Globulin Ratio 0.9 (1-3); Alkaline Phosphatase 99 U/L (34-104); Anion Gap 10 mmol/L (2-11); BUN/Creatinine Ratio 27.7 (8-20); Blood Urea Nitrogen 18 mg/dL (6-24); CO2 Carbon Dioxide 31 mmol/L (22-32); Calcium 9.6 mg/dL (8.6-10.3); Chloride 95 mmol/L (101-111); EGFR African American 114.5 (>60); EGFR Non-African American 94.6 (>60); Globulin 3.8 g/dL (2-4); Glucose 216 mg/dL (70-100); Potassium 4.1 mmol/L (3.5-5.0); Sodium 136 mmol/L (135-145); Total Protein 7.4 g/dL (6.4-8.9)
--- NOTE | 2019-06-01 21:55 | ED ---
Progress - Progress Note Progress Note: Patient signed out from Dr. Franz shift change 06/01/19 22:00. Awaiting psychiatric evaluation. Pending disposition. Re-Evaluation - Re-Evaluation First Eval Re-Evaluation Time: 22:47 Comment: patient medically cleared for [facility] Second Eval Re-Evaluation Time: 00:46 Comment: psychiatric evaluation complete. psychiatric loading dock hand reviewed case with Dr. Msasey. patient to be discharged Course/Dx - Diagnoses Provider Diagnoses: Schizoaffective disorder, bipolar type Discharge ED - Sign-Out/Discharge Documenting (check all that apply): Patient Departure - Discharge Plan Condition: Good Disposition: HOME Referrals: Davonte Majano MD [Primary Care Provider] - - Billing Disposition and Condition Condition: GOOD Disposition: Home - Attestation Statements Document Initiated by Collinibe: Yes Documenting Scribe: Juliana Huerta Provider For Whom Collinibe is Documenting (Include Credential): Allison Combs MD Scribe Attestation: IJuliana, scribed for Allison Combs MD on 06/02/19 at 0132. Scribe Documentation Reviewed: Yes Provider Attestation: The documentation as recorded by the Juliana nicole accurately reflects the service I personally performed and the decisions made by me, Allison Combs MD Status of Scribe Document: Viewed
--- OUTSIDE RECORDS SUMMARY | 2019-06-01 22:10 | XMS REPORT | Continuity of Care Document ---
:1965 External Reference #:[id number] Author Name Davonte Majano M.D. Address [address] [place] [address] Care Team Providers Name Role Phone HCP given Care Team Information Steam Cleaner Unavailable [facility], Care Team Information Steam Cleaner Cardiovascular Nayeli Reyna O.D., F.A.A.O. - Care Team Information Steam Cleaner [phone] [employer] [place] Problems Active Problems Provider Date Bladder muscle dysfunction - overactive Davonte Majano M.D. Onset: 2016 Diabetic neuropathy Davonte Majano M.D. Onset: 03/24/2017 Obesity Davonte Majano M.D. Onset: 03/24/2017 Binge eating disorder Davonte Majano M.D. Onset: 03/24/2017 Social History Type Date Description Comments Sex Unknown ETOH Use Denies alcohol use Recreational Drug Use Denies Drug Use Tobacco Use Start: Unknown Patient has never smoked Smoking Status Reviewed: 09/15/18 Patient has never smoked Exercise Type/Frequency Exercises rarely Sun Exposure Does not use sunscreen Seat Belt/Car Seat Yes Allergies, Adverse Reactions, Alerts Active Allergies Reaction Severity Comments Date Tegretol 05/22/2016 Clozaril 05/22/2016 Medications Active Medications SIG Qnty Indications Ordering Date Provider Levemir Flextouch inject 50 units 45ml E11.40 Gretel, 05/04/2019 once a day (at same Elizabeth Arauz 100Unit/ML Solution time every day) for Pen-Inject blood sugar control Freestyle Lancets use once a day for 100units E11.9 Rafaelacoaleja, 02/25/2019 blood sugar Elizabeth Arauz [facility] monitoring Neutrogena T/Gel use daily as needed 1bottle L40.9 Silcoaleja, 01/29/2019 Therapeutic Shampoo for psoriasis Elizabeth Arauz 4% Shampoo Metamucil use as directed by Unknown 01/28/2019 GI, for constipation Colace 1 by mouth twice a 60caps Gretel, 11/17/2018 100mg Capsules day to keep stools Elizabeth Arauz soft Hydroxyzine Pamoate take 1 capsule by Unknown 11/11/2018 mouth every 4 hours 25mg Capsules as needed for anxiety Imodium A-D 1 cap if has 30caps K58.0 Silalfredo, 09/17/2018 2mg diarrhea, repeat Elizabeth Arauz Capsules after 2 hrs if diarrhea cont, can repeat 2 hrs later, up to 3 cap per day, prn Pull Up 1 up to tid for 90units R15.9 Gretel, 09/17/2018 Undergarments fecal incontinence Elizabeth Arauz Size Large Metformin HCL Take One Tablet By 180tabs E11.9 Rafaelacoaleja, 09/17/2018 500mg Mouth Twice A Day Elizabeth Arauz Tablets For Diabetes E11.40 Nystatin apply to affected 60gm B37.3 Davonte Majano, 08/03/2018 [id number]/GM Cream area(s) in groin M.D. three times a day until clear; resume as needed Haloperidol 1 by mouth daily Unknown 03/12/2018 5mg Tablets Haloperidol 1 tablet by mouth 30tabs Unknown 02/27/2018 10mg Tablets daily Tums prn use for Unknown 02/27/2018 500mg Chewtabs heartburn Furosemide take one tablet by 90tabs R60.0 Davonte Majano, 2018 20mg Tablets mouth every morning M.D. for edema Divalproex Sodium ER 1 by mouth every R45.4 Unknown 08/05/2017 500mg morning and 2 at Tablets ER 24HR bedtime; for mood F25.0 Freestyle Lite Test Use Once Daily Before 100units E11.40 Davonte Majano, 07/23/2017 Breakfast M.DNapoleon Strip Glucose Monitor Use 2-3 times a day to 1units E11.40 Davonte Majano, test glucose levels M.D. for diabetes Ibuprofen as needed as directed Unknown 03/23/2017 200mg Tablets Pen [place] 10/29" use as directed for 100units E11.40 Davonte Majano, 04/2017 31G insulin administration M.D. X 8 mm Misc Myrbetriq take one tablet by 30tabs N32.81 Davonte Majano, 12/23/2016 25mg mouth every day for M.D. Tablets ER 24HR overactive bladder Clonazepam 1 tab by mouth twice a 60tabs F25.0 Davonte Majano, 12/22/2016 0.5mg day for anxiety; Rx M.D. Tablets due 05/08/19; further prescriptions need to come from [facility] Benztropine Mesylate 1 by mouth twice a day F25.0 Unknown 08/13/2016 for tremors 0.5mg Tablets Atorvastatin Calcium Take One Tablet By 30tabs E11.9 Davonte Majano, Mouth Every Day For M.D. 20mg Tablets Prevention Of Heart Attack And Stroke E11.40 Fish Oil 1 capsule po daily Unknown 06/06/2016 1200mg Capsules Vitamin D 1 capsule po daily Unknown 06/06/2016 2000Unit Capsules Prazosin HCL 1 by mouth nightly 30caps F25.0 aDvonte Majano, 05/21/2016 1mg M.D. Capsules Seroquel 1 by mouth every 30tabs F25.0 Davonte Majano, 05/21/2016 400mg Tablets night at bedtime M.D. Cymbalta 1 capsule every 90caps F25.0 Davonte Majano, 05/21/[address] morning (along with M.D. Part a 30mg capsule); for mood Cymbalta 1 by mouth every 90caps F25.0 Davonte Majano, 05/21/[address] morning for mood; M.D. Part take along with a 60mg capsule Invokana Take One Tablet Once 30tabs E11.9 Davonte Majano, 05/21/2016 100mg Tablets Daily For Blood M.D. Sugar Control History Medications Potassium Chloride 7.5 milliliters 225ml Davonte Majano, 12/30/2018 - every day, for M.D. 05/03/2019 20Meq/15ML (10%) potassium Solution replacement Levemir Flextouch Inject 46 Units 30units E11.40 Davonte Majano, 2018 - Once A Day AT Same M.D. 05/04/2019 100Unit/ML Time For Blood Solution Sugar Control Pen-Inject Immunizations CPT Code Status Date Vaccine Lot # [id number] Given 03/10/2018 Influenza Virus Vaccine, Quadrivalent, Split, [id number] Preservative Free 28953 Given 03/24/2017 Adacel or Boostrix, TDaP [id number] 06261 Given 03/24/2017 Influenza Virus Vaccine, Quadrivalent, Split, [id number] Preservative Free 09950 Given 05/22/2016 Influenza Virus Vaccine, Quadrivalent, Split, [id number] Preservative Free Vital Signs Date Vital Result Comment 05/04/2019 1:28pm BP Systolic 108 mmHg BP Diastolic 68 mmHg Height 63.75 inches 5'3.75" with shoes Weight 221.00 lb BMI (Body Mass Index) 38.2 kg/m2 01/29/2019 1:20pm BP Systolic 116 mmHg BP Diastolic 70 mmHg Weight 223.50 lb Results Test Acquired Date Facility Test Result H/L Range Note Laboratory test 05/04/2019 In House Hemoglobin A1c 7.8% finding Aot Request 02/18/2019 [facility]. Aot Request Test(s) 1, 2 LABORATORY added [phone] Tests to be added: serum hcg CBS W/Automated 02/18/2019 [facility]. White 5.9 K/uL Normal 3.1-10.7 Diff LABORATORY Blood [phone] Count Red Blood Count 4.35 M/uL Normal 3.90-5.40 Hemoglobin 13.4 gm/dL Normal 11.6-15.8 Hematocrit 40.2 % Normal 36.0-46.1 Mean Cell Volume 92.4 fl Normal 80.9-99.0 Mean Corpuscular HGB 30.8 pg Normal 25.9-32.7 Mean Corpuscular HGB Conc 33.3 g/dL Normal 30.8-34.3 Platelet Count 221 K/uL Normal 155-360 Red Cell Distri Width SD 44.3 fl Normal 36-47 Red Cell Distri Width %CV 13.0 % Normal 11.7-14.4 Mean Platelet Volume 9.4 fl Normal 8.9-12.4 Neut% 53.6 % Normal 40.4-72.8 Lymph % 34.0 % Normal 20.0-42.0 [place] % 10.1 % Normal 4.3-13.2 Eo% 1.5 % Normal 0.0-6.6 Bas% 0.3 % Normal 0.0-1.1 Immature Grans 0.5 % Normal 0.0-5.0 NRBC % 0.0 /100WBC < 10/ 100 WBC Neut# 3.14 K/uL Normal 1.8-7.0 Lymph # 1.99 K/uL Normal 1.0-4.0 [place] # 0.59 K/uL Normal 0.3-0.9 Eos # 0.09 K/uL Normal 0.0-0.5 Baso # 0.02 K/uL Normal 0.0-0.1 Immature Grans Absolute 0.03 K/uL NRBC # 0.00 K/uL Laboratory 02/18/2019 [facility]. Salicylate < 1.7 mg/dL Low 2.8-20.0 3 test finding LABORATORY [phone] Drugs Of 02/18/2019 [facility]. Amphetamines Negative Abuse-Urine LABORATORY (Urine) Screen 7 [phone] Barbiturates (Urine) Negative Benzodiazepines (Urine) Negative Cannabinoids (Urine) Negative Cocaine Metabolite (Urine) Negative Methadone (Urine) Negative Opiates (Urine) Negative Urine Cutoffs * 4 Urinalysis With 02/18/2019 [facility]. Urine Color STRAW Yellow Microscopic LABORATORY [phone] Urine Clarity CLEAR Clear Urine Glucose - Dipstick >=1000 mg/dL High Negative Urine Bilirubin - Dipstick NEGATIVE Negative Urine Ketone NEGATIVE mg/dL Negative Urine Specific [place] <= 1.005 Low 1.010-1.030 Urine Blood NEGATIVE 0-2 Urine PH 6.5 Normal 6.5-7.5 Urine Protein - Dipstick NEGATIVE mg/dL Negative Urine Urobilinogen - Dipstick 0.2 E.U./dL Normal 0.2-1.0 Urine Nitrite - Dipstick NEGATIVE Negative Urine Leuk Esterase TRACE Abnormal Negative Urine RBC 0-2 rbc/hpf 0-2 Urine WBC 2-5 wbc/hpf 0-7 Urine Epithelial Cells FEW /lpf None Seen Urine Bacteria VERY FEW None Seen Urine Yeast VERY FEW None Seen Source: URINE, CLEAN CAT <SEE NOTE> 5 Urine Microalbumin 01/29/2019 [facility] Ur Microalbumin < 15.0 mg/L Random [phone] (mg/L) Urine Creatinine 32.57 mg/dL Urine Microalbumin/Creatinine TNP <31 6 Laboratory test 01/29/2019 In House Hemoglobin A1c 8.1 finding Laboratory test 11/11/2018 [facility] Lactic Acid 4.2 Critical high 0.5-2 7 finding [phone] mmol/L .0 Laboratory test 11/11/2018 [facility] Valproic Acid 74.0 Normal 50- 10 finding [phone] (Depakene) g/mL 0 Basic Metabolic 11/11/2018 [facility] Sodium 141 Normal 135-1 Panel [phone] mmol/L 45 Potassium 4.1 mmol/L Normal 3.5-5.0 Chloride 106 mmol/L Normal 101-111 Co2 Carbon Dioxide 26 mmol/L Normal 22-32 Anion Gap 9 mmol/L Normal 2-11 Glucose 169 mg/dL High 70-100 Blood Urea Nitrogen 20 mg/dL Normal 6-24 Creatinine 0.74 mg/dL Normal 0.51-0.95 BUN/Creatinine Ratio 27.0 High 8-20 Calcium 7.8 mg/dL Low 8.6-10.3 Egfr Non- 81.8 >60 Egfr 99.0 >60 8 Laboratory test 11/11/2018 [facility] Lactic Acid 3.3 Critical 0.5- 2.0 9 finding [phone] mmol/L high Urine Culture And 11/10/2018 [facility] Urine SEE 10 Sensitivities [phone] Culture RESULT BELOW Laboratory test 11/10/2018 [facility] Valproic 97.0 Normal 50-100 finding [phone] Acid g/mL (Depakene) Acetaminophen < 15 g/mL 11 Alcohol < 10 mg/dL Normal <10 Salicylate < 2.50 mg/dL <30 TSH (Thyroid Stim Horm) 3.77 mcIU/mL Normal 0.34-5.60 Comp Metabolic Panel 11/10/2018 [facility] Sodium 136 mmol/L Normal 135-145 [phone] Chloride 97 mmol/L Low 101-111 Co2 Carbon Dioxide 28 mmol/L Normal 22-32 Glucose 211 mg/dL High 70-100 Blood Urea Nitrogen 21 mg/dL Normal 6-24 Creatinine 0.74 mg/dL Normal 0.51-0.95 BUN/Creatinine Ratio 28.4 High 8-20 Calcium 9.3 mg/dL Normal 8.6-10.3 Total Protein 7.4 g/dL Normal 6.4-8.9 Albumin 3.7 g/dL Normal 3.2-5.2 Globulin 3.7 g/dL Normal 2-4 Albumin/Globulin Ratio 1.0 Normal 1-3 Total Bilirubin 0.30 mg/dL Normal 0.2-1.0 Alkaline Phosphatase 110 U/L High 34-104 Alt 12 U/L Normal 7-52 Egfr Non- 81.8 >60 Egfr 99.0 >60 12 Potassium 4.0 mmol/L Normal 3.5-5.0 Anion Gap 11 mmol/L Normal 2-11 Ast 13 U/L Normal 13-39 CBC Auto Diff 11/10/2018 [facility] White Blood 6.3 10^3/uL Normal 3.5-10.8 [phone] Count Red Blood Count 4.45 10^6/uL Normal 3.70-4.87 Hemoglobin 13.6 g/dL Normal 12.0-16.0 Hematocrit 40 % Normal 35-47 Mean Corpuscular Volume 90 fL Normal 80-97 Mean Corpuscular Hemoglobin 30 pg Normal 27-31 Mean Corpuscular HGB Conc 34 g/dL Normal 31-36 Red Cell Distribution Width 14 % Normal 10.5-15 Platelet Count 234 10^3/uL Normal 150-450 Mean Platelet Volume 7.4 fL Normal 7.4-10.4 Abs Neutrophils 3.2 10^3/uL Normal 1.5-7.7 Abs Lymphocytes 2.4 10^3/uL Normal 1.0-4.8 Abs Monocytes 0.6 10^3/uL Normal 0-0.8 Abs Eosinophils 0.1 10^3/uL Normal 0-0.6 Abs Basophils 0.0 10^3/uL Normal 0-0.2 Abs Nucleated RBC 0.0 10^3/uL Granulocyte % 50.0 % Lymphocyte % 38.6 % Monocyte % 9.2 % Eosinophil % 1.7 % Basophil % 0.5 % Nucleated Red Blood Cells % 0.2 Urine Drug 11/10/2018 [facility] Urine Amphetamine None Detected None Detect SCR ED & [phone] Screen Pain Clinic Urine Barbiturates Screen None Detected None Detect Urine Benzodiazepine Screen None Detected None Detect Urine Cannabinoids Screen None Detected None Detect Urine Cocaine Screen None Detected None Detect Urine Opiates Screen None Detected None Detect Urine Phencyclidine Screen None Detected None Detect 13 Urinalysis Profile 11/10/2018 [facility] Urine Color Straw [phone] Urine Appearance Cloudy Urine Specific [place] 1.011 Normal 1.010-1.030 Urine pH 6.0 Normal 5-9 Urine Urobilinogen Negative Negative Urine Ketones Negative Negative Urine Protein Negative Negative Urine Leukocytes 2+ Abnormal Negative Urine Blood Negative Negative Urine Nitrite Negative Negative Urine Bilirubin Negative Negative Urine Glucose 3+(>=500 mg/dL) Abnormal Negative Urine White Blood Cell 3+(>20/hpf) Abnormal Absent Urine Red Blood Cell Trace(0-2/hpf) Absent Urine Bacteria Absent Absent Urine Squamous Epithelial Cell Present Abnormal Absent Laboratory 11/10/2018 [facility] Lactic Acid 3.8 Critical 0.5-2.0 14 test finding [phone] mmol/L high Laboratory 11/04/2018 In House Hemoglobin A1c 8.5 test finding 1 MENTAL HEALTH EVALUATION 2 Tests: serum hcg Instructions: 3 THERAPEUTIC RANGE: 15-30 mg/dL POTENTIAL TOXICITY VARIES WITH TIME FROM INGESTION. PLEASE CONSULT APPROPRIATE NOMOGRAM. 4 URINE SPECIMENS ARE SCREENED AT THE LISTED CUTOFFS DRUG CLASS INITIAL TEST LEVEL Amphetamines 1000 ng/mL Barbiturates 200 ng/mL Benzodiazepines 200 ng/mL Cannabinoids 50 ng/mL Cocaine Metabolite 300 ng/mL Methadone 300 ng/mL Opiates 300 ng/mL Any PRESUMPTIVE POSITIVE findings are UNCONFIRMED. Confirmatory testing is suggested if findings are unexpected. Please contact laboratory if confirmatory testing is desired. SPECIMENS ARE HELD FOR 72 HOURS. 5 URINE, CLEAN CATCH 6 Unable to calculate due to low microalbumin 7 Critical Result LACT:4.2 Called to LON at: 03:11:05 by:[id number] Read back by:LON [facility] Severe Sepsis and Septic Shock Management Bundle Measure requires all lactic acids initially measuring >2.0 mmol/L be repeated. 8 Because ethnic data is not always readily [...] 15-29 5 Kidney failure <15 (or dialysis) 9 Critical Result LACT:3.3 Called to [id number] at: 06:29:27 by:[id number] Read back by:[id number] [facility] Severe Sepsis and Septic Shock Management Bundle Measure requires all lactic acids initially measuring >2.0 mmol/L be repeated. 10 SEE RESULT BELOW Name: RUSS HARPER : [address]: Lisa Massey MD Acct: [id number] Unit: [id number] AGE: 53 Location: [address] Re11/11/18 SEX: F Status: ADM IN SPEC: [id number] MARLENE: 11/10/[address] [facility] [address]: Venu Nathan MD REQ: [id number] RECD: 11/10/18 STATUS: SUZANNE VARGAS DR: Davonte Majano MD _ SOURCE: URINE SPDESC: ORDERED: Urine Culture Procedure Result Reported Site Urine Culture Final 11/12/18- 0811 ML Organism 1 KLEBSIELLA PNEUMONIAE [place] Count >100,000 (Many) CFU/ML Organism 2 NORMAL CELENA [place] Count 1-10,000 (Few) CFU/ML 1. KLEBSIELLA PNEUMONIAE [facility] RX --------- ------ Ampicillin >=32 R Cefazolin <=4 S Cefepime <=1 S Ceftriaxone <=1 S Ciprofloxacin <=0.25 S Gentamicin <=1 S Levofloxacin <=0.12 S Meropenem <=0.25 S Nitrofurantoin 64 I Tetracycline <=1 S Pipercillin/Tazobactam <=4 S Trimethoprim/Sulfamethoxazole <=20 S Amoxicillin/Clavulanic Acid <=2 S Aztreonam <=1 S Contact the Microbiology Department for any additional antibiotic reporting. * ML - Main Lab . END OF REPORT DEPARTMENT OF PATHOLOGY, [address] [place] [address] Cuate Bennett M.D. Director [facility] # [id number] 11 Therapeutic concentration: <50 ug/mL Toxic concentration: >120 ug/mL 12 Because ethnic data is not always readily [...] 15-29 5 Kidney failure <15 (or dialysis) 13 The urine specimen was tested at the listed cutoffs: Drug class test level (ng/mL) Amphetamines 500 Barbiturates 200 Benzodiazepine metabolites 200 Cocaine metabolites 150 Cannabinoids 50 Opiates 300 Pcp 25 Specimen was received without chain of custody. Results should be used for medical purposes only. 14 Critical Result LACT:3.8 Called to [id number] at: 00:05:29 by:[id number] Read back by:LON [facility] Severe Sepsis and Septic Shock Management Bundle Measure requires all lactic acids initially measuring >2.0 mmol/L be repeated. Procedures Date Code Description Status 01/14/2019 [id number] Mammogram Completed 08/03/2018 [id number] Diabetic Foot Exam Completed 05/31/2018 [id number] Diabetic Retinal Eye Exam Completed 06/16/2014 [id number] Colonoscopy Completed Medical Devices Description No Information Available Encounters Type Date Location Provider Dx Diagnosis Office Visit 01/29/2019 Main Office Davonte Majano, E11.40 Type 2 diabetes 1:15p M.DNapoleon mellitus with diabetic neuropathy, unsp F50.81 Binge eating disorder F25.0 Schizoaffective disorder, bipolar type L40.9 Psoriasis, unspecified Office Visit 11/18/2018 2:00p Main Office Gretel F25.0 Schizoaffective Elizabeth Arauz disorder, bipolar type E11.40 Type 2 diabetes mellitus with diabetic neuropathy, unsp N39.0 Urinary tract infection, site not specified B37.9 Candidiasis, unspecified Office Visit 11/04/2018 4:00p Main Office Davonte Majano, E11.40 Type 2 diabetes M.D. mellitus with diabetic neuropathy, unsp F25.0 Schizoaffective disorder, bipolar type L40.9 Psoriasis, unspecified F50.81 Binge eating disorder Assessments Date Code Description Provider 05/04/2019 E11.40 Type 2 diabetes mellitus with diabetic Davonte Majano M.D. neuropathy, unspecified 05/04/2019 E11.40 Type 2 diabetes mellitus with diabetic Davonte Majano M.D. neuropathy, unsp 05/04/2019 F50.81 Binge eating disorder Davonte Majano M.D. 05/04/2019 F25.0 Schizoaffective disorder, bipolar type Davonte Majano M.D. 05/04/2019 L40.9 Psoriasis, unspecified Davonte Majano M.D. 05/04/2019 Z23 Encounter for immunization Davonte Majano M.D. 05/04/2019 Z68.38 Body mass index (BMI) 38.0-38.9, adult Davonte Majano M.D. 01/29/2019 E11.40 Type 2 diabetes mellitus with diabetic Davonte Majano M.D. neuropathy, unspecified 01/29/2019 F50.81 Binge eating disorder Davonte Majano M.D. 01/29/2019 F25.0 Schizoaffective disorder, bipolar type Davonte Majano M.D. 01/29/2019 L40.9 Psoriasis, unspecified Davonte Majano M.D. 11/18/2018 F25.0 Schizoaffective disorder, bipolar type Davonte Majano M.D. 11/18/2018 E11.40 Type 2 diabetes mellitus with diabetic Davonte Majano M.D. neuropathy, unspecifi 11/18/2018 N39.0 Urinary tract infection, site not specified Davonte Majano M.D. 11/18/2018 B37.9 Candidiasis, unspecified Davonte Majano M.D. 11/04/2018 E11.40 Type 2 diabetes mellitus with diabetic Davonte Majano M.D. neuropathy, unsp 11/04/2018 F25.0 Schizoaffective disorder, bipolar type Davonte Majano M.D. 11/04/2018 L40.9 Psoriasis, unspecified Davonte Majano M.D. 11/04/2018 F50.81 Binge eating disorder Davonte Majano M.D. Plan of Treatment 09/17/2018 - Koffi AguilarK58.0 Irritable bowel syndrome with diarrheaNew Medication:Imodium A-D 2 mg - 1 cap if has diarrhea, repeat after 2 hrs if diarrhea cont, can repeat 2 hrs later, up to 3 cap per day, prnComments: INCREASE PDGWZK72.9 Full incontinence of fecesNew Medication:Pull Up Undergarments Size Large - 1 up to tid for fecal incontinenceComments: AnoscopyThe patient was placed in a lateral decubitus position on the exam table. A digital rectal exam was carried out which was normal. A lubricated anoscope was then carefully inserted fully into the anus and withdrawn. The external anal area was then wiped clean and the patient returned to the normal position to allow departure from the exam table. The patient tolerated the procedure well.B37.9 Candidiasis, unspecifiedNew Medication:Diflucan 150 mg - 1 tablet, 1 time a week x 2 zppkiB63.40 Type 2 diabetes mellitus with diabetic neuropathy, unspecifiNew Medication:Metformin HCL 500 mg - Take One Tablet By Mouth Twice A Day For IstvjdwqF33.1 Toxic gastroenteritis and ymaeolgH36.3x5A Adverse effect of insulin and oral hypoglycemic [antidiabeti Functional Status Description No Information Available Mental Status Description No Information Available Referrals Description No Information Available
--- OUTSIDE RECORDS SUMMARY | 2019-06-01 22:10 | XMS REPORT ---
:1965 Author Name Haritha Siegel Address [address] [address] Care Team Providers Name Role Phone Haritha Siegel Unavailable Unavailable Yazmin Mchugh Unavailable Unavailable Allergies, Adverse Reactions, Alerts Allergy Code CodeSystem Reaction Severity Status Substance RxNorm Medications Medication Medication Medication Start Route Dose Status Fill Code CodeSystem Date Instructions RxNorm NoCurrentDosage No NoCurrentFrequency Longer Active duloxetine RxNorm 2019-0 oral 60 mg No for 30 1-30 capsule,delayed Longer day(s) release(DR/EC) Active haloperidol RxNorm 2017-1 oral 10 mg tablet No for 30 1-06 Longer day(s) Active haloperidol RxNorm 2018-1 oral 5 mg tablet No for 30 1-06 Longer day(s) Active benztropine RxNorm 2019-0 oral 0.5 mg tablet Active for 30 1-30 day(s) divalproex RxNorm 2019-0 oral 500 mg tablet Active for 30 1-30 extended release 24 day(s) hr prazosin RxNorm 2019-0 oral 1 mg capsule Active for 30 2-20 day(s) quetiapine RxNorm 2019-0 oral 400 mg tablet Active for 30 1-30 day(s) duloxetine RxNorm 2019-0 oral 60 mg No for 30 4-25 capsule,delayed Longer day(s) release(DR/EC) Active duloxetine RxNorm 2019-0 oral 60 mg No for 30 4-25 capsule,delayed Longer day(s) release(DR/EC) Active haloperidol RxNorm 2019-0 oral 5 mg tablet No for 30 4-25 Longer day(s) Active haloperidol RxNorm 2019-0 oral 10 mg tablet No for 30 4-25 Longer day(s) Active clonazepam RxNorm 2019-0 oral 0.5 mg tablet No for 30 2-20 Longer day(s) Active duloxetine RxNorm 2019-0 oral 30 mg No for 30 1-30 capsule,delayed Longer day(s) release(DR/EC) Active clonazepam RxNorm 2019-0 oral 0.5 mg tablet No for 30 5-13 Longer day(s) Active clonazepam RxNorm 2019-0 oral 0.5 mg 1 tablet Active Take 1 tablet 6-24 twice a day twice a day as needed for 30 day(s) duloxetine RxNorm 2019-0 oral 30 mg No for 30 7-17 capsule,delayed Longer day(s) release(DR/EC) Active duloxetine RxNorm 2019-0 oral 30 mg Active for 30 7-17 capsule,delayed day(s) release(DR/EC) duloxetine RxNorm 2019-0 oral 60 mg Active for 30 7-17 capsule,delayed day(s) release(DR/EC) haloperidol RxNorm 2019-0 oral 10 mg tablet Active for 30 7-17 day(s) haloperidol RxNorm 2019-0 oral 5 mg tablet Active for 30 7-17 day(s) Hospital Discharge Medications Medication Direction Start Date Status Indications Fill Instuctions No Discharge Medication Problems Problem Name Code CodeSystem Start Date End Date Status SNOMED-CT 2018-09-04 Active Laboratory Values/Results Test Test Code Code System Actual Result Date LOINC Procedures Procedure Name Code CodeSystem Target Site Date of Procedure SNOMED-CT () 2018-09-28 SNOMED-CT () 2018-10-06 SNOMED-CT () 2018-10-08 SNOMED-CT () 2018-10-15 SNOMED-CT () 2018-10-29 SNOMED-CT () 2018-11-17 SNOMED-CT () 2018-11-19 SNOMED-CT () 2018-12-03 SNOMED-CT () 2018-12-15 SNOMED-CT () 2018-12-31 SNOMED-CT () 2018-12-30 SNOMED-CT () 2019-01-12 SNOMED-CT () 2019-01-19 SNOMED-CT () 2019-02-02 SNOMED-CT () 2019-02-16 SNOMED-CT () 2019-03-02 Encounter Diagnosis Code CodeSystem Description Date Finding Finding Status Code 50489 [facility] [place] - 2019-02-14 - Active Individual 30 min 7 SNOMED-CT Vital Signs Vitals Date Value Immunizations Vaccine Name Vaccine Code CodeSystem Date Status Social History Element Description Start Date End Date Code CodeSystem Description SNOMED-CT Hospital Discharge Instructions Reason For Referral
--- OUTSIDE RECORDS SUMMARY | 2019-06-01 22:10 | XMS REPORT ---
:1965 Author Organization [facility] Care Team Providers Name Role Phone Dante Clements Primary Care Physician Unavailable Allergies, Adverse Reactions, Alerts Allergy Code CodeSystem Reaction Severity Criticality Status Start Substance Date Moderate Medications Medication Medication Medication Start Stop Route Dose Status Fill Code CodeSystem Date Date Instructions clonazepam 19740723 RxNorm 2019- oral 0.5 mg completed for 30 5- 06-12 tablet day(s) duloxetine 286408 RxNorm 2018- oral 30 mg completed for 30 - 07-17 capsule,d day(s) elayed release(D R/EC) clonazepam 19740723 RxNorm 2018- oral 0.5 mg 1 active Take 1 tablet 6 08-16 tablet twice a day twice a as needed for day 30 day(s) prazosin 344862 RxNorm 2019- oral 1 mg active for 30 2-20 11-14 capsule day(s) haloperidol 153574 RxNorm 2018- oral 10 mg completed for 30 4- 07-17 tablet day(s) duloxetine 279924 RxNorm 2019- oral 60 mg active for 30 7-17 11-14 capsule,d day(s) elayed release(D R/EC) haloperidol 040609 RxNorm 2017-06 2019- oral 5 mg completed for 30 1-06 04-25 tablet day(s) haloperidol 861949 RxNorm 2019- oral 5 mg active for 30 7-17 11-14 tablet day(s) benztropine 492121 RxNorm 2019- oral 0.5 mg active for 30 1-30 11-14 tablet day(s) duloxetine 606857 RxNorm 2019- oral 60 mg completed for 30 4- 07-17 capsule,d day(s) elayed release(D R/EC) duloxetine 450034 RxNorm 2019- oral 60 mg completed for 30 1-30 04-25 capsule,d day(s) elayed release(D R/EC) duloxetine 895415 RxNorm 2019- oral 60 mg completed for 30 4-25 07-17 capsule,d day(s) elayed release(D R/EC) divalproex 2926263 RxNorm 2018- oral 500 mg active for 30 1-30 11-14 tablet day(s) extended release 24 hr haloperidol 288729 RxNorm 2019- oral 10 mg active for 30 7-17 11-14 tablet day(s) haloperidol 167957 RxNorm 2019- oral 5 mg completed for 30 4- 07-17 tablet day(s) clonazepam 154006 RxNorm 2018- oral 0.5 mg completed for 30 2-20 05-13 tablet day(s) quetiapine 841765 RxNorm 2018- oral 400 mg active for 30 1-30 11-14 tablet day(s) haloperidol 443548 RxNorm 2017-06 2019- oral 10 mg completed for 30 1-06 04-25 tablet day(s) duloxetine 575966 RxNorm 2019- oral 30 mg completed for 30 7-17 07-17 capsule,d day(s) elayed release(D R/EC) duloxetine 358910 RxNorm 2019- oral 30 mg active for 30 7-17 11-14 capsule,d day(s) elayed release(D R/EC) Problems Problem Name Code CodeSystem Alternate Alternate Start End Status Narrative Code CodeSystem Date Date Schizophreni [id number] SNOMED-CT Active a, 3- unspecified Schizophreni [id number] SNOMED-CT 0 Active a, 3-22 unspecified Relevant diagnostic tests/laboratory data Narrative No Information Procedures Procedure Code CodeSystem Target Date of Status Service Device Device Device Name Site Procedure Delivery Code Name UID Location Psychotherap [id number] SNOMED-CT () 2019-03-30 complete Mental y, 45 04 d Health- minutes with [facility] patient [address], [id number] Psychotherap [id number] SNOMED-CT () 2019-01-12 complete Mental y, 45 04 d Health- minutes with [address], [id number] Psychotherap [id number] SNOMED-CT () 2019-01-19 complete Mental y, 45 04 d Health- minutes with [address], [id number] Psychotherap [id number] SNOMED-CT () 2019-02-02 complete Mental y, 45 04 d Health- minutes with [address], [id number] [id number] Psychotherap [id number] SNOMED-CT () 2019-02-16 complete Mental y, 45 04 d Health- minutes with [address], [id number] Psychotherap [id number] SNOMED-CT () 2019-03-02 complete Mental y, 45 04 d Health- minutes with [address], [id number] Psychotherap [id number] SNOMED-CT () 2018-12-03 complete Mental y, 45 04 d Health- minutes with [address], [id number] Psychotherap [id number] SNOMED-CT () 2018-12-15 complete Mental y, 45 04 d Health- minutes with [address], [id number] Psychotherap [id number] SNOMED-CT () 2018-10-29 complete Mental y, 45 04 d Health- minutes with [address], [id number] [id number] Psychotherap [id number] SNOMED-CT () 2018-10-06 complete Mental y, 45 04 d Health- minutes with [address], [id number] [id number] Psychiatric [id number] SNOMED-CT () 2018-10-08 complete Mental diagnostic 85 d Health- evaluation [place] with [address], [id number] Office [place] [id number] SNOMED-CT () 2018-11-19 complete Mental other 6 d Health- outpatient [place] visit for [address], established [id number] patient, [id number] which requires at least 2 of these 3 sims components: A problem focused history; A problem focused examination; Straightforw marla medical decision making. Counselin Office or [id number] SNOMED-CT () 2019-03-24 complete Mental other 6 d Health- outpatient [place] visit for [address], established [id number] patient, [id number] which requires at least 2 of these 3 sims components: A problem focused history; A problem focused examination; Straightforw marla medical decision making. Counselin Office or [id number] SNOMED-CT () 2018-12-30 complete Mental other 6 d Health- outpatient [place] visit for [address], established [id number] patient, [id number] which requires at least 2 of these 3 sims components: A problem focused history; A problem focused examination; Straightforw marla medical decision making. Counselin SNOMED-CT () 2018-10-15 complete Mental d [address], [id number] SNOMED-CT () 2018-11-17 complete Mental d Health[address], [id number] SNOMED-CT () 2018-12-31 complete Mental d [facility], [id number] SNOMED-CT () 2019-04-15 complete Mental d [facility], [id number] SNOMED-CT () 2018-09-28 complete Mental d [address], [id number] [id number] Encounters/Encounter Diagnoses Encounter Name Encounter Diagnosis Diagnosis Diagnosis Date of Service Code Code Name CodeSystem Diagnosis Delivery Location [facility] - [id number] Schizophrenia SNOMED-CT 2019-04-29 Behavioral Individual 30 , unspecified [facility] min [facility] , , , Vital Signs No Information Social History Element Description Description Start End Code CodeSystem AdditionalInfo Date Date SexAssignedAtBirth Female F AdministrativeGender 02-21 Hospital Discharge Instructions Reason For Referral Medical Equipment FDA Assessments
[2019-06-01 22:19] LABS: Acetaminophen < 15 mcg/mL; Alcohol < 10 mg/dL (<10); Salicylate < 2.50 mg/dL (<30)
[2019-06-02 01:15] VITALS: BP 0/0
--- NOTE | 2019-06-04 05:49 | ED ---
Imaging and Labs Follow Up Follow Up Type: Labs/Cultures Labs/Culture Result: patient urine culture grew Klebsiella pneumonia 25-50,000. Patient Communication/Plan: this is not a significant culture so will not treat at this time Provider Diagnoses: Schizoaffective disorder, bipolar type
== END 2019-06-02 01:10 | disposition home or self-care (01) ==
LOC: ED 20:54
DX: F25.0 Schizoaffective disorder, bipolar type (principal); R45.851 Suicidal ideations; F32.9 Major depressive disorder, single episode, unspecified; F41.9 Anxiety disorder, unspecified; Z79.899 Other long term (current) drug therapy; Z79.01 Long term (current) use of anticoagulants; E11.9 Type 2 diabetes mellitus without complications; E03.9 Hypothyroidism, unspecified; I50.9 Heart failure, unspecified; Z95.810 Presence of automatic (implantable) cardiac defibrillator; E78.00 Pure hypercholesterolemia, unspecified; I10 Essential (primary) hypertension
CPT/HCPCS: 36415; 80053; 80307; 80320; 80329; 81003; 81015; 85025; 87077; 87086; 87186; 99285; G0480